=== PATIENT | female | born 1955 | race Caucasian/White ===

== ENCOUNTER 2024-01-07 11:01 | Outpatient (AMB) | payer MEDICARE, OTHER, SELFPAY ==
--- NOTE | 2024-01-07 11:25 | HO.NEPHOV_ITS ---
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 She had been on lithium for over 30 years. She has a new psychiatrist. She currently has been weaned down on her lithium. She is known to have one cyst on one of her kidneys. She has no family history of renal disease. She has not a diabetic. She has hypertension and is on medications with good control. She does not take any regular nonsteroidal anti-inflammatory medications. Her mother had bipolar disease and has been on Depakote. She also has history of hypercalcemia with he r serum calcium consistently around 11. She does not have any history of nephrolithiasis. She denies coronary artery disease, congestive heart failure, CVA, ROSHAN, PVD, carotid stenosis, froth or foam in the urine. She had taken PPI for a long time. She has had essential tremor which is well controlled. She currently feels well. She is trying to lose weight. [facility] Medical History (Updated 01/24/24 @ 21:42 by Dirk Hope MD) Primary hypothyroidism Hypercalcemia Stage 3b chronic kidney disease (CKD) Surgical History (Updated 01/07/24 @ 11:33 by Ruba Baumann MA) Status post right knee replacement H/O tubal ligation History of breast surgery Family History (Updated 01/07/24 @ 11:33 by Ruba Baumann MA) Father Heart disease Social History (Updated 01/07/24 @ 11:33 by Ruba Baumann MA) Alcohol intake: current Comment: Occasionally Patient Tobacco Use Status: Former Tobacco user Vital Signs 01/07/24 11:28 Height 5 ft 5 in BP 136/62 Blood Pressure Location Rt brachial Position Sitting Pulse 66 Pulse Source Pulse Oximeter Pulse Oximetry (%) 97 Oxygen Delivery Method Room Air Physical Exam Vital Signs: Last Vital Signs Pulse 66 01/07/24 11:28 BP 136/62 01/07/24 11:28 Pulse Ox 97 01/07/24 11:28 Oxygen Delivery Method Room Air 01/07/24 11:28 Const General: comfortable and no acute distress Orientation/consciousness: patient oriented x3 HEENT Head: Yes normocephalic Mouth: Normal oral and palatal mucosa present Eyes EOM: EOMs intact bilaterally Neck Neck: Yes supple Resp Auscultation: clear to auscultation bilaterally Cardio Jugular venous distension: no JVD Rate: regular rate GI Palpation (GI): Soft to palpation Auscultation: normal bowel sounds General: Yes no CVA tenderness Back/Spine/Pelvis Back: no CVA tenderness Skin General skin exam: no rashes or lesions noted Neuro General: patient oriented x3 and moves all extremities Extrem General: Yes no pedal edema Assessment & Plan Assessment & Plan (1) Hypercalcemia: Code(s): E83.52 - Hypercalcemia (2) Chronic kidney disease, stage 3, mod decreased GFR: Code(s): N18.30 - Chronic kidney disease, stage 3 unspecified Qualifiers: Chronic kidney disease stage 3 subtype: stage 3a (GFR 45-59) Qualified Code(s): N18.31 - Chronic kidney disease, stage 3a (3) Hypertension: Code(s): I10 - Essential (primary) hypertension Qualifiers: Hypertension type: primary hypertension Qualified Code(s): I10 - Essential (primary) hypertension (4) 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 Her lithium is being weaned off. Her serum calcium has been stable. She maintains good hydration. She has no renal calculus. She avoids nonsteroidal anti-inflammatories. She may be a candidate for amiloride in the future. If her serum creatinine goes up we may have to consider doing a renal biopsy. She may have to come off PPI as well if her serum creatinine rises. Her blood pressure is at goal. I have not made any medication changes today. Follow-up lab work ordered. All questions answered. Orders: Orders Blood Urea Nitrogen 01/07/24 N18.32 - Chronic kidney disease, stage 3b, E21.0 - Primary hyperparathyroidism, E83.52 - Hypercalcemia Creatinine 01/07/24 N18.32 - Chronic kidney disease, stage 3b, E21.0 - Primary hyperparathyroidism, E83.52 - Hypercalcemia Calcium 01/07/24 N18.32 - Chronic kidney disease, stage 3b, E21.0 - Primary hyperparathyroidism, E83.52 - Hypercalcemia Electrolytes 01/07/24 N18.32 - Chronic kidney disease, stage 3b, E21.0 - Primary hyperparathyroidism, E83.52 - Hypercalcemia Coding Level of Care Code Est Pt Level 4 (05573) Diagnoses Hypercalcemia E83.52 Stage 3a chronic kidney disease N18.31 Chronic kidney disease stage 3 subtype: stage 3a (GFR 45-59) Primary hypertension I10 Hypertension type: primary hypertension 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
[2024-01-07 11:28] VITALS: BP 136/62; PULSE 66; O2SAT 97
== END 2024-01-07 12:04 | disposition home or self-care (01) ==
PROVIDERS: PCP Physician Assistant Medical; Visit Provider Internal Medicine Nephrology
DX: I12.0 Hypertensive chronic kidney disease with stage 5 chronic kidney disease or end stage renal disease (principal); N18.31 Chronic kidney disease, stage 3a; E21.1 Secondary hyperparathyroidism, not elsewhere classified; T43.595A Adverse effect of other antipsychotics and neuroleptics, initial encounter
CPT/HCPCS: 99214

== ENCOUNTER → 2024-01-07 11:01 | Outpatient (BNVA) | payer MEDICARE, OTHER, SELFPAY | PROVIDERS: PCP Physician Assistant Medical; Visit Provider Internal Medicine Nephrology | DX: I12.9 Hypertensive chronic kidney disease with stage 1 through stage 4 chronic kidney disease, or unspecified chronic kidney disease (principal); N18.31 Chronic kidney disease, stage 3a; E83.52 Hypercalcemia; E21.1 Secondary hyperparathyroidism, not elsewhere classified; T43.595D Adverse effect of other antipsychotics and neuroleptics, subsequent encounter | CPT/HCPCS: 99212 ==

== ENCOUNTER 2024-05-27 14:01 | Outpatient (AMB) | payer MEDICARE, OTHER, SELFPAY ==
[2024-05-27 14:06] VITALS: BMI 40.4
--- NOTE | 2024-05-27 14:06 | A.OFFVIS_ITS ---
VS Expanded 05/27/24 14:06 06/02/24 14:57 Height 5 ft 5 in 5 ft 5 in Weight 242 lb 11.663 oz 243 lb BMI 40.4 40.4 Intake Visit Reasons: Chronic kidney disease, stage 3a/LVM Allergies No Known Allergies Allergy (Verified 01/07/24 11:30) Nutrition Presentation Details: Pt presents for MNT for CKD stage 3. 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 Pt reports working on reducing total calories to less than 1400 by following phone javi BS Monitoring Most Recent Diabetes Results: No Data to Display EKA-Xujonmz-Vd.Jeor Equation Height: 5 ft 5 in Weight: 243 lb Resting Metabolic Rate: 1637.44 Calculated Activity Level: Sedentary Calories Needed to Maintain Weight: 1964.93 Diagnosis Nutrition problem #1: food nutri know defi As related to (etiology) #1: diagnosis As evidenced by (sign/symptom) #1: high BMI (40.4 (06/2024), may also be overly restricting caloric intake ) PFSH Medical History (Updated 04/16/24 @ 19:28 by Dirk Hope MD) Primary hypothyroidism Hypercalcemia Stage 3b chronic kidney disease (CKD) Surgical History (Updated 01/07/24 @ 11:33 by Ruba Baumann MA) Status post right knee replacement H/O tubal ligation History of breast surgery Family History (Updated 01/07/24 @ 11:33 by Ruba Baumann MA) Father Heart disease Social History (Updated 01/07/24 @ 11:33 by Ruba Baumann MA) Alcohol intake: current Comment: Occasionally Patient Tobacco Use Status: Former Tobacco user Assessment & Plan Assessment & Plan (1) Stage 3b chronic kidney disease (CKD): Code(s): N18.32 - Chronic kidney disease, stage 3b Category: Medical Plan: Wt: 110 Kg ( 05/2024 ) Est kcal needs as per MSJ: 1900 (40% carb, 30% protein/fat) Est fluid needs as per 25-30 ml/d: 2700- 3300 (unless otherwise specified by MD) Est prot per day as per 1 g/kg bw: 110 Recommend fiber intake : 8-10 g per day and gradually increase to 25-28 g per day for women and 35-38 g for men or as tolerated Recommend sodium intake per day: less than 2000 mg Educated patient on: ( R = reviewed V = verbalizes understanding N/R = needs review N/A = not applicable * Food sources of carbohydrate, adequate serving sizes and its role in various health conditions: R * Differences between complex carbohydrates a simple carbohydrates, role of fiber in diet: R V N/R * Lean protein sources of foods: R V NR * Differences between types of fats and role in diet (mono on saturated fat fatty acids, saturated fatty acids, trans fats): R V N/R * Food sources of sodium in salt and healthy modifications for heart health in kidney health: R * Vitamins and minerals: R V N/R * Healthy plate method concept: R * Physical activity: Benefits a precaution: R V N/R * Patient Instructions: work on practicing mindful eating strategies may recommend 1900 calories, distributed throughout the day (3 meals/2-3 snacks) following the healthy plate method Coding Level of Care Code Nutr Indiv Intake (46690) Diagnoses Stage 3b chronic kidney disease (CKD) N18.32 Time Spent (min) 30
[2024-06-07 11:09] VITALS: BMI 40.4
== END 2024-05-27 15:00 | disposition home or self-care (01) ==
PROVIDERS: PCP Physician Assistant Medical; Visit Provider Dietitian, Registered
DX: N18.32 Chronic kidney disease, stage 3b (principal)

== ENCOUNTER → 2024-05-27 14:01 | Outpatient (BNVA) | payer MEDICARE, OTHER, SELFPAY | PROVIDERS: PCP Physician Assistant Medical; Visit Provider Dietitian, Registered | DX: N18.32 Chronic kidney disease, stage 3b (principal); Z71.3 Dietary counseling and surveillance | CPT/HCPCS: 97802 ==

== ENCOUNTER 2024-07-08 12:36 | Outpatient (AMB) | payer MEDICARE, OTHER, SELFPAY ==
[2024-07-08 12:41] VITALS: BMI 39.3
--- NOTE | 2024-07-08 12:41 | A.OFFVIS_ITS ---
VS Expanded 07/08/24 12:41 07/08/24 13:49 Height 5 ft 5 in 5 ft 5 in Weight 235 lb 14.314 oz 236 lb BMI 39.3 39.3 Intake Visit Reasons: Chronic kidney disease, stage 3a/CONFIRMED Allergies No Known Allergies Allergy (Verified 01/07/24 11:30) Nutrition Presentation Details: Pt presents for MNT f/u for obesity with CKD stage 3. Pt reports working on diet modifications, working on distributing the meals throughout the day, tracking caloric intake by using fitness pal Pt reports choosing a variety of foods, working on reducing on fats/high sugar foods. 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 BS Monitoring Most Recent Diabetes Results: No Data to Display YZJ-Blwgpyh-Dv.Jeor Equation Height: 5 ft 5 in Weight: 236 lb Resting Metabolic Rate: 1605.72 Calculated Activity Level: Sedentary Calories Needed to Maintain Weight: 1926.86 [facility] Medical History (Updated 04/16/24 @ 19:28 by Dirk Hope MD) Primary hypothyroidism Hypercalcemia Stage 3b chronic kidney disease (CKD) Surgical History (Updated 01/07/24 @ 11:33 by Ruba Baumann MA) Status post right knee replacement H/O tubal ligation History of breast surgery Family History (Updated 01/07/24 @ 11:33 by Ruba Baumann MA) Father Heart disease Social History (Updated 01/07/24 @ 11:33 by Ruba Baumann MA) Alcohol intake: current Comment: Occasionally Patient Tobacco Use Status: Former Tobacco user Assessment & Plan Assessment & Plan (1) Stage 3b chronic kidney disease (CKD): Code(s): N18.32 - Chronic kidney disease, stage 3b Category: Medical Plan: Wt: 110 Kg ( 05/2024 ), 107 kg (07/2024) Est kcal needs as per MSJ: 1900 (40% carb, 30% protein/fat) Est fluid needs as per 25-30 ml/d: 2700- 3200 (unless otherwise specified by ) Est prot per day as per 1 g/kg bw: 107 Recommend fiber intake : 8-10 g per day and gradually increase to 25-28 g per day for women and 35-38 g for men or as tolerated Recommend sodium intake per day: less than 2000 mg Educated patient on: ( R = reviewed V = verbalizes understanding N/R = needs review N/A = not applicable * Food sources of carbohydrate, adequate serving sizes and its role in various health conditions: R * Differences between complex carbohydrates a simple carbohydrates, role of fiber in diet: R * Lean protein sources of foods: R * Differences between types of fats and role in diet (mono on saturated fat fatty acids, saturated fatty acids, trans fats): R * Food sources of sodium in salt and healthy modifications for heart health in kidney health: R * Vitamins and minerals: R * Healthy plate method concept: R * Physical activity: Benefits a precaution: R * Patient Instructions: Choose lean protein foods, (fish, eggs, poultry as ex) keep hydrated Coding Level of Care Code Nutr Indiv Subseq ([id number]) Diagnoses Stage 3b chronic kidney disease (CKD) N18.32 Time Spent (min) 20
[2024-07-08 13:49] VITALS: BMI 39.3
== END 2024-07-08 13:09 | disposition home or self-care (01) ==
PROVIDERS: PCP Physician Assistant Medical; Visit Provider Dietitian, Registered
DX: N18.32 Chronic kidney disease, stage 3b (principal)

== ENCOUNTER → 2024-07-08 12:36 | Outpatient (BNVA) | payer MEDICARE, OTHER, SELFPAY | PROVIDERS: PCP Physician Assistant Medical; Visit Provider Dietitian, Registered | DX: E66.9 Obesity, unspecified (principal); N18.32 Chronic kidney disease, stage 3b; Z71.3 Dietary counseling and surveillance; Z68.39 Body mass index [BMI] 39.0-39.9, adult | CPT/HCPCS: 97803 ==

== ENCOUNTER 2024-07-14 13:30 | Outpatient (AMB) | payer MEDICARE, OTHER, SELFPAY ==
--- NOTE | 2024-07-14 13:39 | HO.NEPHOV_ITS ---
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 She had been on lithium for over 30 years which has been weaned off. She has a new psychiatrist. She she is doing well on Tegretol. She has lost significant amount of weight by exercise and dietary changes. She is known to have one cyst on one of her kidneys. She has no family history of renal disease. She has not a diabetic. She has hypertension and is on medications with good control. She does not take any regular nonsteroidal anti-inflammatory medications. Her mother had bipolar disease and has been on Depakote. She also has history of hypercalcemia with her serum calcium consistently around 11. She does not have any history of nephrolithiasis. She denies coronary artery disease, congestive heart failure, CVA, ROSHAN, PVD, carotid stenosis, froth or foam in the urine. She had taken PPI for a long time. She has had essential tremor which is well controlled. She currently feels well. [facility] Medical History (Updated 04/16/24 @ 19:28 by Dirk Hope MD) Primary hypothyroidism Hypercalcemia Stage 3b chronic kidney disease (CKD) Surgical History Status post right knee replacement H/O tubal ligation History of breast surgery Family History Father Heart disease Social History Alcohol intake: current Comment: Occasionally Patient Tobacco Use Status: Former Tobacco user Review of Systems Const All systems reviewed & are unremarkable except as noted in HPI and below Physical Exam Vital Signs: Last Vital Signs Pulse 67 07/14/24 13:41 BP 126/70 07/14/24 13:41 Pulse Ox 97 07/14/24 13:41 Oxygen Delivery Method Room Air 07/14/24 13:41 BMI result Body Mass Index 38.8 Const General: comfortable and no acute distress Orientation/consciousness: patient oriented x3 HEENT Head: Yes normocephalic Mouth: Normal oral and palatal mucosa present Eyes EOM: EOMs intact bilaterally Neck Neck: Yes supple Resp Auscultation: clear to auscultation bilaterally Cardio Jugular venous distension: no JVD Rate: regular rate GI Palpation (GI): Soft to palpation Auscultation: normal bowel sounds General: Yes no CVA tenderness Back/Spine/Pelvis Back: no CVA tenderness Skin General skin exam: no rashes or lesions noted Neuro General: patient oriented x3 and moves all extremities Extrem General: Yes no pedal edema Results Reviewed Nephrology Results: No Data to Display Assessment & Plan Assessment & Plan (1) Chronic kidney disease, stage 3, mod decreased GFR: Code(s): N18.30 - Chronic kidney disease, stage 3 unspecified Category: Medical Qualifiers: Chronic kidney disease stage 3 subtype: stage 3a (GFR 45-59) Qualified Code(s): N18.31 - Chronic kidney disease, stage 3a (2) Hypercalcemia: Code(s): E83.52 - Hypercalcemia Category: Medical Plan Cami had stable serum creatinine for some time . 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 Her lithium is weaned off. Her serum calcium has been stable. She maintains good hydration. She has no renal calculus. She avoids nonsteroidal anti-inflammatories. Her blood pressure has been at goal. She may have to come off PPI as well if her serum creatinine rises. I have not made any medication changes today. Follow-up lab work ordered. All questions answered. Orders: Orders Blood Urea Nitrogen 07/14/24 N18.31 - Chronic kidney disease, stage 3a Creatinine 07/14/24 N18.31 - Chronic kidney disease, stage 3a Electrolytes 07/14/24 N18.31 - Chronic kidney disease, stage 3a Calcium 07/14/24 N18.31 - Chronic kidney disease, stage 3a Coding Level of Care Code Est Pt Level 4 (78119) Diagnoses Stage 3a chronic kidney disease N18.31 Chronic kidney disease stage 3 subtype: stage 3a (GFR 45-59) Hypercalcemia E83.52
[2024-07-14 13:41] VITALS: BP 126/70; PULSE 67; O2SAT 97; BMI 38.8
== END 2024-07-14 13:55 | disposition home or self-care (01) ==
PROVIDERS: PCP Physician Assistant Medical; Visit Provider Internal Medicine Nephrology
DX: N18.31 Chronic kidney disease, stage 3a (principal); E83.52 Hypercalcemia
CPT/HCPCS: 99214

== ENCOUNTER → 2024-07-14 13:30 | Outpatient (BNVA) | payer MEDICARE, OTHER, SELFPAY | PROVIDERS: PCP Physician Assistant Medical; Visit Provider Internal Medicine Nephrology | DX: N18.31 Chronic kidney disease, stage 3a (principal); E83.52 Hypercalcemia | CPT/HCPCS: 99212 ==

== ENCOUNTER 2024-11-15 14:01 | Outpatient (AMB) | payer MEDICARE, OTHER, SELFPAY ==
[2024-11-15 14:16] VITALS: BMI 38.1
--- NOTE | 2024-11-15 14:16 | A.OFFVIS_ITS ---
VS Expanded 11/15/24 14:16 Height 5 ft 5 in Weight 229 lb 0.964 oz BMI 38.1 Intake Visit Reasons: Obesity/Left vm Allergies No Known Allergies Allergy (Verified 07/14/24 13:43) Nutrition Presentation Details: Pt presents for MNT f/u for CKD stage 3 Pt working on diet modifications reducing portion sizes, incorporating salads, vegetables, lean protein, reducing on high salt foods Continues keeping track of caloric intake, reports feeling well. Pt reports will be joining weight management program through the insurance Exercise routine: currently sedentary BS Monitoring Most Recent Diabetes Results: No Data to Display [facility] Medical History (Updated 04/16/24 @ 19:28 by Dirk Hope MD) Primary hypothyroidism Hypercalcemia Stage 3b chronic kidney disease (CKD) Surgical History Status post right knee replacement H/O tubal ligation History of breast surgery Family History Father Heart disease Social History Alcohol intake: current Comment: Occasionally Patient Tobacco Use Status: Former Tobacco user Assessment & Plan Assessment & Plan (1) Stage 3b chronic kidney disease (CKD): Code(s): N18.32 - Chronic kidney disease, stage 3b Category: Medical Plan: Wt: 110 Kg ( 05/2024 ), 107 kg (07/2024) Est kcal needs as per MSJ: 1900 (40% carb, 30% protein/fat) Est fluid needs as per 25-30 ml/d: 2700- 3200 (unless otherwise specified by ) Est prot per day as per 1 g/kg bw: 107 Recommend fiber intake : 8-10 g per day and gradually increase to 25-28 g per day for women and 35-38 g for men or as tolerated Recommend sodium intake per day: less than 2000 mg Educated patient on: ( R = reviewed V = verbalizes understanding N/R = needs review N/A = not applicable * Food sources of carbohydrate, adequate serving sizes and its role in various health conditions: R * Differences between complex carbohydrates a simple carbohydrates, role of fiber in diet: R * Lean protein sources of foods: R * Differences between types of fats and role in diet (mono on saturated fat fatty acids, saturated fatty acids, trans fats): R * Food sources of sodium in salt and healthy modifications for heart health in kidney health: R * Vitamins and minerals: R * Healthy plate method concept: R * Physical activity: Benefits a precaution: R * Patient Instructions: Engage in physical activity as able goal 30 minutes at least 3 times a week unless otherwise stated by your Doctor Coding Level of Care Code Nutr Indiv Subseq ([id number]) Diagnoses Stage 3b chronic kidney disease (CKD) N18.32 Time Spent (min) 30
--- OUTSIDE RECORDS SUMMARY | 2024-11-15 17:33 | XMS_ITS | Continuity of Care Document ---
Author Organization [facility] Address [address] [place] [address], [address] [address]- Care Team Providers Care Universal Banker Name Role Phone Not on Staff, PCP Primary Care Physician Unavail able Encounter [facility] Date(s): 09/24/24 - 10/24/24 [facility] [address] [place] [address], [address] [place] [id number] Attending Physician: Kiara Henriquez Admitting Physician: Kiara Henriquez Referring Physician: AdmtrKiara Encounter Type: Triage Allergies, Adverse Reactions, Alerts Substance Criticality Severity Reaction Reaction Severity Status Other Environmental Allergy DERMATONE - CONTACT DERMATITIS Active RUFINA inhibitors Activ e Medications acetaminophen 325 mg oral tablet 650 mg, By Mouth, Every 6 hours, Refills 0, Maintenance, 08/20/17 8:40:47 AM EDT Start Date: 08/20/17 Status: Ordered Repeat number: 1 aMILoride 5 mg oral tablet 0.5 tablet = 2.5 mg, By Mouth, Daily, # 15 tablet, 6 Refills, Maintenance, 03/24/24 1:34:00 PM EDT, Tablet, Partial fill upon patient request if the prescription is for a schedule II opioid drug. Start Date: 03/24/24 Status: Ordered Quantity: 15.0 Unit: tablet Repeat number: 7 aspirin 162.5 mg oral capsule, extended release = 325 mg, By Mouth, 2 times a day, 0 Refills, Maintenance, 08/20/17 8:40:48 AM EDT, ER Capsule Start Date: 08/20/17 Status: Ordered Repeat number: 1 atorvastatin 40 mg oral tablet = 40 mg, By Mouth, Daily at bedtime, 0 Refills, Maintenance, Tablet Start Date: 08/20/17 Status: Ordered Repeat number: 1 Cardizem CD 120 mg/24 hours oral capsule, extended release 120 mg, By Mouth, Daily, Refills 0, Maintenance, 08/20/17 8:39:52 AM EDT Start Date: 08/20/17 Status: Ordered Repeat number: 1 CPAP Machine See Instructions, # 1 each, Maintenance, CPAP 12, 07/14/18 1:48:19 PM EDT, Compound Start Date: 07/14/18 Status: Ordered Quantity: 1.0 Unit: each Repeat number: 1 Gemtesa 75 mg oral tablet 1 tablet, By Mouth, Daily, # 30 tablet, 11 Refills, Maintenance, 09/24/24 12:26:00 PM EST, [facility], 163, cm, 04/01/24 9:36:00 EDT, Height, 119.5, kg, 10/04/22 8:16:00 EST, Dry Weight Start Date: 09/24/24 Status: Ordered Quantity: 30.0 Unit: tablet Repeat number: 12 Glucosamine Chondroitin By Mouth, Daily, 0 Refills, Maintenance, 03/24/24 1:08:00 PM EDT, Partial fill upon patient request if the prescription is for a schedule II opioid drug. Start Date: 03/24/24 Status: Ordered Repeat number: 1 levothyroxine 0.175 mg oral tablet By Mouth, Daily, 0 Refills, Maintenance, 08/20/17 8:40:13 AM EDT, Tablet Start Date: 08/20/17 Status: Ordered Repeat number: 1 LORazepam 0.5 mg oral tablet 1 tablet = 0.5 mg, By Mouth, Every 8 hours, prn, 0 Refills, Maintenance, 03/24/24 1:13:00 PM EDT, Partial fill upon patient request if the prescription is for a schedule II opioid drug. Start Date: 03/24/24 Status: Ordered Repeat number: 1 Mastectomy Bra See Instructions, # 6 each, Refills 1, Tot. Refills 1, Maintenance, History of left breast cancer Asymmetry due to surgery Diagnosis: C50.912, 07/04/22 12:41:00 PM EDT, Supply Start Date: 07/04/22 Status: Ordered Quantity: 6.0 Unit: each Repeat number: 2 Mastectomy Prosthesis See Instructions, # 1 each, Refills 1, Tot. Refills 1, Maintenance, History of breast cancer. Please dispense compression sleeve and glove. 40 mmHg, 01/21/19 4:31:25 PM EDT, Compound Start Date: 01/21/19 Status: Ordered Quantity: 1.0 Unit: each Repeat number: 2 Mastectomy Prosthesis See Instructions, # 1 each, Refills 0, Tot. Refills 0, Maintenance, History of left breast cancer Asymmetry due to surgery Diagnosis: C50.912, 07/04/22 12:41:00 PM EDT, Supply Start Date: 07/04/22 Status: Ordered Quantity: 1.0 Unit: each Repeat number: 1 mirabegron 50 mg oral tablet, extended release 1 tablet = 50 mg, By Mouth, Daily, do not crush or chew, # 30 tablet, 5 Refills, Maintenance, 05/23/23 11:05:00 AM EDT, ER Tablet, [facility], Partial fill upon patient request if the prescription is for a schedule II opioid drug., 163, cm, 12/12/22 14:05:00 EST, Height, 119.5, kg,10/04/22 8:16:00 EST, Dry Weight Start Date: 05/23/23 Status: Ordered Quantity: 30.0 Unit: tablet Repeat number: 6 MiraLax Powder 1 pack/packet = 17 Gm, By Mouth, Daily, 0 Refills, Maintenance, 08/20/17 8:41:09 AM EDT, Powder Start Date: 08/20/17 Status: Ordered Repeat number: 1 Multivitamin 0 Refills, Maintenance, 03/24/24 1:08:00 PM EDT, Partial fill upon patient request if the prescription is for a schedule II opioid drug. Start Date: 03/24/24 Status: Ordered Repeat number: 1 Pepcid 20 mg oral tablet 1 tablet = 20 mg, By Mouth, 2 times a day, # 180 tablet, 0 Refills, Maintenance, 06/27/21 11:21:00 AM EDT, Tablet, Partial fill upon patient request if the prescription is for a schedule II opioid drug. Start Date: 06/27/21 Status: Ordered Quantity: 180.0 Unit: tablet Repeat number: 1 Prilosec 40 mg oral enteric coated capsule 1 capsule = 40 mg, By Mouth, Daily, 0 Refills, Maintenance, 04/26/13 4:30:39 PM EDT Start Date: 04/26/13 Status: Ordered Repeat number: 1 QUEtiapine 100 mg oral tablet 100 mg, By Mouth, Daily at bedtime, Refills 0, Maintenance, 08/20/17 8:40:42 AM EDT Start Date: 08/20/17 Status: Ordered Repeat number: 1 Trileptal 600 mg oral tablet 1 tablet = 600 mg, By Mouth, 2 times a day, # 60 tablet, 5 Refills, Maintenance, 03/24/24 1:09:00 PMEDT, Tablet, Partial fill upon patient request if the prescription is for a schedule II opioid drug. Start Date: 03/24/24 Status: Ordered Quantity: 60.0 Unit: tablet Repeat number: 1 Vitamin D3 = 2,000 International_Units, By Mouth, 0 Refills, Maintenance, 11/09/13 12:04:54 PM EST Start Date: 11/09/13 Status: Ordered Repeat number: 1 Problem List Condition Confirmation Course Effective Dates Status Health St atus Informant Breast cancer, Infiltrating ductal carcinoma, T1c N1, Mx ER negative, [place] negative, HER-2/guido negative by FISH (stage II), diagnosed in 2007. Confirmed Active Breast cancer, Infiltrating ductal carcinoma, T1c N1, Mx ER negative, [place] negative, HER-2/guido negative by FISH (stage II), diagnosed in 2007. Confirmed Active Obstructive sleep apnea Confirmed Active Severe obesity Confirmed Active Social History Social History Type Response Smoking Status Former smoker entered on: 02/20/15 Sex Sex Representation Female (finding) Patient Care team information Care Team Personnel Name: Not on Staff, PCP Position: S Physician (General Medicine) Member Role: PCP Care Team Related Persons Name: ROMULO KIRBY Insurance Providers Guarantor name: LACHELLE KIRBY Health Plan Information #: 1 Payer: MEDICARE PART B OUTPT Member Number: NA Policy Number: NA Group Number: NA Health Plan Information #: 2 [facility] Member Number: NA Policy Number: NA Group Number: NA
--- OUTSIDE RECORDS SUMMARY | 2024-11-15 17:33 | XMS_ITS | Continuity of Care Document ---
Author Organization [facility] Address [address] [place] [address]- Care Team Providers Care Credit Cashier Name Role Phone Not on Staff, PCP Primary Care Physician Unavail able Encounter [facility] Date(s): 10/07/24 - 11/06/24 [facility] [address] [place] [address]- Encounter Type: Triage Allergies, Adverse Reactions, Alerts [...] Date: 08/20/17 Status: Ordered Repeat number: 1 carBAMazepine 100 mg oral capsule, extended release 1 capsule = 100 mg, By Mouth, 2 times a day, # 60 capsule, 0 Refills, Maintenance, 11/04/24 2:22:00 PM EST, CR Capsule, Partial fill upon patient request if the prescription is for a schedule II opioiddrug. Start Date: 11/04/24 Status: Ordered Quantity: 60.0 Unit: capsule Repeat number: 1 Cardizem CD 120 mg/24 [...] breast cancer Asymmetry due to surgery Diagnosis: C50.2, 07/04/22 12:41:00 PM EDT, Supply Start Date: [...] number: 1 QUEtiapine 100 mg oral tablet 300 mg, By Mouth, Daily at bedtime, Refills 0, Maintenance, 08/20/17 8:40:42 AM EDT Start Date: 08/20/17 Status: Ordered Repeat number: 1 Vitamin D3 = 2,000 International_Units, By Mouth, 0 Refills, Maintenance, 11/09/13 12:04:54 PM EST Start Date: 11/09/13 Status: Ordered Repeat number: 1 Problem List Condition Confirmation Course Effective Dates Status Health St atus Informant Breast cancer, Infiltrating ductal carcinoma, T1c N1, Mx ER negative, [place] negative, HER-2/guido negative by FISH (stage II), diagnosed in 2007. Confirmed Active Breast cancer, Infiltrating ductal carcinoma, T1c N1, Mx ER negative, [place] negative, HER-2/guido negative by FISH (stage II), diagnosed in 2007. Confirmed Active IBS (irritable colon syndrome) Confirmed Active Obstructive sleep apnea Confirmed Active Restless leg syndrome Confirmed Active Severe obesity (BMI 35.0-39.9) with comorbidity Confirmed Active Social History Social History Type [...] NA Health Plan Information #: 2 Payer: [facility] Member Number: NA Policy Number: NA Group Number: NA
== END 2024-11-15 14:47 | disposition home or self-care (01) ==
PROVIDERS: PCP Physician Assistant Medical; Visit Provider Dietitian, Registered
DX: N18.32 Chronic kidney disease, stage 3b (principal)

== ENCOUNTER → 2024-11-15 14:01 | Outpatient (BNVA) | payer MEDICARE, OTHER, SELFPAY | PROVIDERS: PCP Physician Assistant Medical; Visit Provider Dietitian, Registered | DX: N18.32 Chronic kidney disease, stage 3b (principal) | CPT/HCPCS: 97803 ==

== ENCOUNTER 2025-01-12 10:58 | Outpatient (AMB) | payer MEDICARE, OTHER, SELFPAY ==
--- NOTE | 2025-01-12 11:06 | HO.NEPHOV ---
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 She had been on lithium for over 30 years which has been weaned off. She has a new psychiatrist. She she is on Tegretol which she thinks needs to be changes to Depakote. She is known to have one cyst on one of her kidneys. She has no family history of renal disease. She has not a diabetic. She has hypertension and is on medications with good control. She does not take any regular nonsteroidal anti-inflammatory medications. Her mother had bipolar disease and has been on Depakote. She also has history of hypercalcemia with her serum calcium consistently around 11. She does not have any history of nephrolithiasis. She denies coronary artery disease, congestive heart failure, CVA, ROSHAN, PVD, carotid stenosis, froth or foam in the urine. She had taken PPI for a long time. She has had essential tremor which is well controlled. She recently had IV contrast for CT scan. [facility] Medical History (Updated 04/16/24 @ 19:28 by Dirk Hope MD) Primary hypothyroidism Hypercalcemia Stage 3b chronic kidney disease (CKD) Surgical History Status post right knee replacement H/O tubal ligation History of breast surgery Family History Father Heart disease Social History Alcohol intake: current Comment: Occasionally Patient Tobacco Use Status: Former Tobacco user Review of Systems Const All systems reviewed & are unremarkable except as noted in HPI and below Physical Exam Vital Signs: Last Vital Signs Pulse 93 01/12/25 11:08 BP 130/70 01/12/25 11:08 Pulse Ox 97 01/12/25 11:08 Oxygen Delivery Method Room Air 01/12/25 11:08 BMI result Body Mass Index 36.6 Const General: comfortable and no acute distress Orientation/consciousness: patient oriented x3 HEENT Head: Yes normocephalic Mouth: Normal oral and palatal mucosa present Eyes EOM: EOMs intact bilaterally Neck Neck: Yes supple Resp Auscultation: clear to auscultation bilaterally Cardio Jugular venous distension: no JVD Rate: regular rate GI Palpation (GI): Soft to palpation Auscultation: normal bowel sounds General: Yes no CVA tenderness Back/Spine/Pelvis Back: no CVA tenderness Skin General skin exam: no rashes or lesions noted Neuro General: patient oriented x3 and moves all extremities Extrem General: Yes no pedal edema Results Reviewed Nephrology Results: No Data to Display Assessment & Plan Assessment & Plan (1) 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: Code(s): E21.1 - Secondary hyperparathyroidism, not elsewhere classified; T43.595A - Adverse effect of other antipsychotics and neuroleptics, initial encounter Category: Medical (2) Hypertension: Code(s): I10 - Essential (primary) hypertension Category: Medical Qualifiers: Hypertension type: primary hypertension Qualified Code(s): I10 - Essential (primary) hypertension (3) Chronic kidney disease, stage 3, mod decreased GFR: Code(s): N18.30 - Chronic kidney disease, stage 3 unspecified Category: Medical Qualifiers: Chronic kidney disease stage 3 subtype: stage 3a (GFR 45-59) Qualified Code(s): N18.31 - Chronic kidney disease, stage 3a Plan Cami had stable serum creatinine for some time . 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 Her lithium is weaned off. Her serum calcium has been stable. She maintains good hydration. She has no renal calculus. She avoids nonsteroidal anti-inflammatories. Her blood pressure has been at goal. I have not made any medication changes today. Follow-up lab work ordered. All questions answered Orders: Orders Blood Urea Nitrogen 3 Months E21.1 - Secondary hyperparathyroidism, not elsewhere classified, I10 - Essential (primary) hypertension, N18.31 - Chronic kidney disease, stage 3a, T43.595A - Adverse effect of other antipsychotics and neuroleptics, initial encounter Electrolytes 3 Months E21.1 - Secondary hyperparathyroidism, not elsewhere classified, I10 - Essential (primary) hypertension, N18.31 - Chronic kidney disease, stage 3a, T43.595A - Adverse effect of other antipsychotics and neuroleptics, initial encounter Creatinine 6 Months E21.1 - Secondary hyperparathyroidism, not elsewhere classified, I10 - Essential (primary) hypertension, N18.31 - Chronic kidney disease, stage 3a, T43.595A - Adverse effect of other antipsychotics and neuroleptics, initial encounter Electrolytes 6 Months E21.1 - Secondary hyperparathyroidism, not elsewhere classified, I10 - Essential (primary) hypertension, N18.31 - Chronic kidney disease, stage 3a, T43.595A - Adverse effect of other antipsychotics and neuroleptics, initial encounter Creatinine 3 Months E21.1 - Secondary hyperparathyroidism, not elsewhere classified, I10 - Essential (primary) hypertension, N18.31 - Chronic kidney disease, stage 3a, T43.595A - Adverse effect of other antipsychotics and neuroleptics, initial encounter Calcium 3 Months E21.1 - Secondary hyperparathyroidism, not elsewhere classified, I10 - Essential (primary) hypertension, N18.31 - Chronic kidney disease, stage 3a, T43.595A - Adverse effect of other antipsychotics and neuroleptics, initial encounter Blood Urea Nitrogen 6 Months E21.1 - Secondary hyperparathyroidism, not elsewhere classified, I10 - Essential (primary) hypertension, N18.31 - Chronic kidney disease, stage 3a, T43.595A - Adverse effect of other antipsychotics and neuroleptics, initial encounter Calcium 6 Months E21.1 - Secondary hyperparathyroidism, not elsewhere classified, I10 - Essential (primary) hypertension, N18.31 - Chronic kidney disease, stage 3a, T43.595A - Adverse effect of other antipsychotics and neuroleptics, initial encounter Coding Level of Care Code Est Pt Level 4 (65320) Diagnoses 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
[2025-01-12 11:08] VITALS: BP 130/70; PULSE 93; O2SAT 97; BMI 36.6
--- OUTSIDE RECORDS SUMMARY | 2025-01-12 12:51 | XMS_ITS | Encounter Summary ---
Author Organization [facility] Address [address] [place] [address] Care Team Providers Care Automotive Fuel Injection Servicer Name Role Phone Melia Musa PA-C Primary Care Provi nixon Dirk Hope MD Unavailable Alejandra Coley MD Unavailable Paul Kumar MD Unavailable Unavailable Encounter Details Date Type Department Care Team (Late Contact Info) Description 08/11/2024 Scanned Document [facility] Inocencio Owusu MD [address] [place] [address] [address] [place] [address] Social History Tobacco Use Types Packs/Day Years Used Date Smoking Tobacco: Former Cigarettes Smokeless Tobacco: Never Alcohol Use Standard Drinks/Week Comments Yes 0 (1 standard drink = 0.6 oz pur e alcohol) when I go out to dinner PHQ-2 Answer Date Recorded PHQ-2 Total Score 2 02/19/2024 Sex and Gender Information Value Date Recorded Sex Assigned at Female 02/18/2024 10:27 PM EDT Gender Identity Female 02/18/2024 10:27 PM EDT Sexual Orientation Heterosexual (straight) 02/17 10:27 PM EDT documented as of this encounter Plan of Treatment Upcoming Encounters Date Type Department Care Team (Late Contact Info) Description 01/17/2025 1:40 PM EDT Consult [facility] [place] [facility] [address] [place] [id number] Melia Musa PA-C [address] [place] [address] Samantha Lehman, MASONRY INSTALLER [address] [facility] [address] [place] [address] 03/30/2025 11:30 AM EDT Office Visit [facility] [address] [place] [address] Melia Musa PA-C [address] [place] [address] documented as of this encounter Visit Diagnoses Not on filedocumented in this encounter Care Teams Automotive Fuel Injection Servicer Relationship Specialty Start Date End Date Melia Musa PA-C [address] [place] [address] PCP - General Internal Medicine 02/18/24 Dirk Hope MD [address] [place] [address] Physician Nephrology 02/18/24 Alejandra Coley MD [facility] [address] [address] Referring Provider 02/18/24 Paul Kumar MD [address] [address] Referring Provider Gastroenterology 02/18/24 Inocencio Patino Physician Endocrinology 02/03/24 Yolanda Tinsley Nurse Practitioner Breast Surgery-Scan 02/02/24 documented as of this encounter
--- OUTSIDE RECORDS SUMMARY | 2025-01-12 12:51 | XMS_ITS | Clinical Summary ---
Author Organization [facility] [address] [facility] Address [address] [place] [address] Phone Care Team Providers Care Filter Tender Jelly Name Role Phone Physician, No Pcp Primary Care Provider Unavaila ble Allergies No known active allergies Medications atorvastatin (LIPITOR) 80 mg tablet 4 Active carBAMazepine XR (TEGretol XR) 400 mg 12 hr tablet Take 1 tablet (400 mg total) by mouth 2 (two) times a day. 4 Active Gemtesa 75 mg tablet tablet 4 Active famotidine (PEPCID) 20 mg tablet Take by mouth. Activ e QUEtiapine (SEROquel) 200 mg tablet Take 1 tablet (200 mg total) by mouth at bedtime. Active levothyroxine (SYNTHROID, LEVOTHROID) 200 mcg tablet Take 1 tablet (200 mcg total) by mouth 1 (one) time each day before breakfast. Active dilTIAZem CD (CARDIZEM CD) 240 mg 24 hr capsule Take 1 capsule (240 mg total) by mouth 1 (one) time each day. Active polyethylene glycol (PEG) 17 gram/dose oral powder 17 g 1 (one) time each day. Active Linzess 290 mcg capsuleIndication s:Other constipation TAKE 1 CAPSULE BY MOUTH ONCE DAILY BEFORE BREAKFAST 30 capsule 11 5 Active Active Problems Problem Noted Date Diagnosed Date Gastroesophageal reflux disease without esophagi tis 10/14/2024 Other constipation 10/14/2024 Gallstones 10/14/2024 Hx of colonic polyps 10/14/2024 Encounters Date Type Department Care Team Description 11/24/2024 8:13 AM EST - 11/24/2024 11:59 PM EST Hospital Encounter [facility] Ultrasound [address] [place] [address] Discharge Disposition: Home or Self Care 11/08/2024 Telephone Gastroenterology - [address] [phone] Paul Kumar MD 10/25/2024 Telephone Gastroenterology - [address] [phone] Paul Kumar MD 10/15/2024 9:45 AM EST Office Visit Gastroenterology - [address] [phone] Paul Kumar MD Gastroesophageal reflux disease without esophagitis (Primary Dx); Gallstones; Other constipation; Hx of colonic polyps from Last 3 Months Social History Tobacco Use Types Packs/Day Years Used Date Smoking Tobacco: Former Cigarettes Tobacco Cessation:Counseling Given: Not Answered Alcohol Use Standard Drinks/Week Comments Yes 0 (1 standard drink = 0.6 oz pur e alcohol) SOCIAL Comments Unknown Sex and Gender Information Value Date Recorded Sex Assigned at Female 10/15/2024 6:53 PM EST Legal Sex Female 3:53 PM EST Gender Identity Female 10/15/2024 6:53 PM EST Sexual Orientation Not on file Obstetrics History Last Filed Vital Signs Vital Sign Reading Time Taken Comments Blood Pressure - - Pulse - - Temperature - - Respiratory Rate - - Oxygen Saturation - - Inhaled Oxygen Concentration - - Weight 105 kg (232 lb) 10/15/2024 9:49 AM EST Height 165.1 cm (5' 5 ) 10/15/2024 9:49 AM EST Body Mass Index 38.61 10/15/2024 9:49 AM EST Plan of Treatment Health Maintenance Due Date Last Done Comments Breast Cancer Screening 1955 Hepatitis A Vaccines (1 of 2 - Risk 2-dose series) 1975 Hepatitis B Vaccines (1 of 3 - Risk 3-dose series) 2016 RSV Immunization Patients 60+ Years Old (1 - Risk 60-74 years 1-dose series) 2016 Cholesterol Screening (Lipid Panel) 10/02/2022 Colorectal Cancer Screening: Colonoscopy 10/02/2022 Depression Screening 10/02/2022 Falls Risk Assessment 10/02/2022 Hepatitis C Screening 10/02/2022 Medicare Annual Wellness Visit 10/02/2022 Osteoporosis Screening (Bone Density Screening) 10/02/2022 Social Influencers of Health Screening 10/02/2022 COVID-19 Vaccine ( season) 2024 09/30/2023, 09/24/2022, 08/30/2021, Additional history exists Hypertension/CHF/CAD Annual BMP Blood Test 03/04/2025 03/04/2024 DTaP,Tdap,and Td Vaccines (2 - Td or Tdap) 08/21/2030 08/21/2020 Zoster Vaccines Completed 07/04/2022, 03/05, 07/10/2016 Influenza Vaccine Completed 08/20/2024, , 11/29/2021, Additional history exists Pneumococcal Vaccine: 50+ Years Completed 09/07/2024, 11/29/2021 HIB Vaccines Aged Out No longer eligi ble based on patient's age to complete this topic HPV Vaccines Aged Out No longer eligi ble based on patient's age to complete this topic IPV Vaccines Aged Out No longer eligi ble based on patient's age to complete this topic MMR Vaccines Aged Out No longer eligi ble based on patient's age to complete this topic Meningococcal ACWY Vaccine Aged Out N o longer eligible based on patient's age to complete this topic Meningococcal B Vacine Aged Out No lo nger eligible based on patient's age to complete this topic RSV Immunization Patients Under 20 months Aged Out No longer eligible based on patient's age to complete this topic Varicella Vaccines Aged Out No longer eligible based on patient's age to complete this topic Procedures Procedure Name Priority Date/Time Associated Diagnosis Comments US ABDOMEN LIMITED Routine 11/24/2024 8: 52 AM EST Gallstones from Last 3 Months Results * US Abdomen Limited (11/24/2024 8:52 AM EST) Anatomical Region Laterality Modality Body Ultrasound 11/24/2024 8:54 AM EST Impressions 11/24/2024 9:00 AM EST Impression: 1. Small mobile gallstone. No evidence of acute cholecystitis or biliary obstruction. 2. 2 cm right renal mass, not visualized on the previous study, most likely a cyst. Follow-up renal ultrasound in 6 months recommended to document stability. 3. Abnormal renal parenchymal echogenicity suggesting underlying chronic medical renal disease. Telerad CARL ([id number]) -------- FINAL REPORT -------- Dictated By: Merari Bergman Dictated Date: 11/24/2024 08:54 ET Assigned Physician: Merari Bergman Reviewed and Electronically Signed By: Merari Bergman Signed Date: 11/24/2024 09:00 ET Workstation ID: [id number] Transcribed By: Self Edit Transcribed Date: 11/24/2024 08:54 ET Narrative 11/24/2024 9:00 AM EST History: Abnormal hepatic function tests. Cholelithiasis. Comparison: 05/20/18 Findings: Real-time imaging of the abdomen, limited to the right upper quadrant, was performed. The hepatic echotexture appears normal. No masses are identified. The portal vein is patent and exhibits normal, hepatopedal flow. The gallbladder is physiologically distended and contains a small mobile calculus. The gallbladder wall is normal in thickness and there is no pericholecystic fluid. The common duct is normal in caliber, measuring 4 mm at the level of the hepatic artery and portal vein. No ascites is seen in the right upper quadrant. A survey view of the right kidney is remarkable for diffusely increased parenchymal echogenicity suggesting underlying medical renal disease. A 1.9 x 2.1 x 2.0 cm hypoechoic mass with strong posterior acoustic enhancement arises from the lower pole of the kidney, most likely a cyst. The pancreas is partially obscured by bowel gas shadowing; the visualized portions of the head and neck appear normal. Procedure Note Merari Bergman MD - 11/24/2024 History: Abnormal hepatic function tests. Cholelithiasis. Comparison: 05/20/18 Findings: Real-time imaging of the abdomen, limited to the right upper quadrant, wasperformed. The hepatic echotexture appears normal. No masses are identified. Theportal vein is patent and exhibits normal, hepatopedal flow. The gallbladder is physiologically distended and contains a small mobilecalculus. The gallbladder wall is normal in thickness and there is nopericholecystic fluid. The common duct is normal in caliber, measuring 4mm at the level of the hepatic artery and portal vein. No ascites is seen in the right upper quadrant. A survey view of the rightkidney is remarkable for diffusely increased parenchymal echogenicitysuggesting underlying medical renal disease. A 1.9 x 2.1 x 2.0 cmhypoechoic mass with strong posterior acoustic enhancement arises from thelower pole of the kidney, most likely a cyst. The pancreas is partially obscured by bowel gas shadowing; the visualizedportions of the head and neck appear normal. IMPRESSION: Impression: 1. Small mobile gallstone. No evidence of acute cholecystitis or biliaryobstruction. 2. 2 cm right renal mass, not visualized on the previous study, mostlikely a cyst. Follow-up renal ultrasound in 6 months recommended todocument stability. 3. Abnormal renal parenchymal echogenicity suggesting underlying chronicmedical renal disease. Telerad CARL ([id number]) -------- FINAL REPORT -------- Dictated By: Merari Bergman Dictated Date: 11/24/2024 08:54 ET Assigned Physician: Merari Bergman Reviewed and Electronically Signed By: Merari Bergman Signed Date: 11/24/2024 09:00 ET Workstation ID: [id number] Transcribed By: Self Edit Transcribed Date: 11/24/2024 08:54 ET Paul Kumar MD [facility] Final Result from Last 3 Months Insurance MEDICARE [facility] [address] [place] [address] Care Teams Filter Tender Jelly Relationship Specialty Start Date End Date Physician, No Pcp PCP - General 10/14/24
--- OUTSIDE RECORDS SUMMARY | 2025-01-12 12:51 | XMS_ITS | Clinical Summary ---
Author Organization [facility] Address [address] [facility] [address] [place] [address] Phone Care Team Providers Care Consultant Teacher Name Role Phone Yakov aCceres MD Primary Care Provider [phone] Allergies Active Allergy Reactions Criticality Noted Date Comments Other 03/28/2022 Other reaction(s): DERMATONE - CONTACT DERMATITIS Medications aspirin (ST RUIZ) 81 MG EC tablet Take 1 tablet by mouth 1 (one) time each day Active atorvastatin (LIPITOR) 40 MG tablet Take 1 tablet by mouth 1 (one) time each day Active Cholecalciferol 25 MCG (1000 UT) tablet dispersible Take 1 tablet by mouth 1 (one) time each day Active lithium (LITHOBID) 300 MG CR tablet Take 3 tablets by mouth at bed time Active glucosamine-nathanael droitin 500-400 MG tablet Take 1 tablet by mouth 1 (one) time each day Active dilTIAZem CD (CARDIZEM CD) 180 MG 24 hr capsule Take 240 mg by mouth 1 (one) time each day 07/11/2021 Active QUEtiapine (SEROquel) 25 MG tablet Take 50 mg by mouth at bed time 08/24/2021 Active levothyroxine (SYNTHROID, LEVOTHROID) 175 MCG tablet Take 1 tablet by mouth 1 (one) time each day 2 tab on Sundays and 1 tab the rest of the week 08/29/2021 Active famotidine (PEPCID) 20 MG tablet Take 20 mg by mouth in the morning and 20 mg in the evening. Active Myrbetriq 25 MG tablet sustained-releas e 24 hour Take 50 mg by mouth 1 (one) time each day 03/27/2023 Active Active Problems Problem Noted Date Diagnosed Date Severe obesity 04/14/2023 Primary hypothyroidism 08/29/2022 Malignant tumor of breast 03/28/2022 Obstructive sleep apnea syndrome 03/28/2022 Stage 3a chronic kidney disease 01/22/2021 Hypercalcemia 01/22/2021 Hypertension 01/22/2021 Primary hyperparathyroidism 01/22/2021 Social History Tobacco Use Types Packs/Day Years Used Date Smoking Tobacco: Former Smokeless Tobacco: Never Tobacco Cessation:Counseling Given: Not Answered Alcohol Use Standard Drinks/Week Comments Yes 0 (1 standard drink = 0.6 oz pur e alcohol) Comments Unknown Sex and Gender Information Value Date Recorded Sex Assigned at Not on file Legal Sex Female 4:58 PM EST Gender Identity Not on file Sexual Orientation Not on file Last Filed Vital Signs Vital Sign Reading Time Taken Comments Blood Pressure 140/70 07/22/2023 4:42 PM EDT Pulse 66 04/14/2023 4:09 PM EDT Temperature - - Respiratory Rate - - Oxygen Saturation 98% 08/31/2021 3:22 PM EDT Inhaled Oxygen Concentration - - Weight 124 kg (273 lb 6.4 oz) 07/22/2023 4:42 PM EDT Height - - Body Mass Index - - Plan of Treatment Health Maintenance Due Date Last Done Comments Breast Cancer Screening 1955 Pneumococcal Vaccine: 65+ Ye ars (1 of 2 - PCV) 1962 Colorectal Cancer Screening: Annual FOBT 2005 Colorectal Cancer Screening: Colonoscopy 2005 Colorectal Cancer Screening: Sigmoidoscopy 2005 Influenza Vaccine (#1) 2024 Hepatitis B Vaccine Aged Out No longe r eligible based on patient's age to complete this topic [place] [address] [address] [place] [address] MEDICARE [facility] MEDICARE Care Teams Consultant Teacher Relationship Specialty Start Date End Date Yakov Caceres MD [facility] [address] [place] [address] [address] [place] [address] PCP - General Internal Medicine 01/22/21
--- OUTSIDE RECORDS SUMMARY | 2025-01-12 12:51 | XMS_ITS | Encounter Summary ---
Author Organization [facility] Address [address] [place] [address] Care Team Providers Care Glove Stitcher Name Role Phone Melia Musa PA-C Primary Care Provi nixon Dirk Hope MD Unavailable Alejandra Coley MD Unavailable Paul Kumar MD Unavailable Unavailable Encounter Details Date Type Department Care Team (Late st Contact Info) Description 11/25/2024 Scanned Document [facility] [address] [place] [address] Endocrinology, Scan Social History Tobacco Use Types Packs/Day Years Used Date Smoking Tobacco: Former Cigarettes Smokeless Tobacco: Never Alcohol Use Standard Drinks/Week Comments Yes 0 (1 standard drink = 0.6 oz pur e alcohol) when I go out to dinner [facility] Utilities Answer Date Recorded In the past 12 months has [employer] electric, gas, oil, or water company threatened to shut off services in your home? No 09/05/2024 Social Connection and Isolat ion Panel [NHANES] Answer Date Recorded In a typical week, how many times do you talk on the phone with family, friends, or neighbors? More than three times a week 09/05/2024 Frequency of Social Gatherin gs with Friends and Family Not on file 09/05/2024 Attends Episcopal Services Not on file 09/05 Active Member of Clubs or Organizations Not on f ile 09/05/2024 Attends Club or Organization Meetings Not on calixto e 09/05/2024 Marital Status Not on file 09/05/2024 AUDIT-C Answer Date Recorded Q1: How often do you have a drink containing alc ohol? Never 09/05/2024 Average Number of Drinks Not on file 024 Frequency of Binge Drinking Not on file 01/2024 PHQ-2 Answer Date Recorded PHQ-2 Total Score 0 09/05/2024 Hunger Vital Sign Answer Date Recorded Within the past 12 months, y ou worried that your food would run out before you got the money to buy more. Never true 09/05/20 24 Within the past 12 months, t he food you bought just didn't last and you didn't have money to get more. Never true 09/05/2024 PRAPARE - Transportation Answer Date Re corded In the past 12 months, has l ack of transportation kept you from medical appointments or from getting medications? No 01/2024 In the past 12 months, has l ack of transportation kept you from meetings, work, or from getting things needed for daily living? No 09/05/2024 Housing Stability Vital Sign Answer Konstantin e Recorded In the last 12 months, was t here a time when you were not able to pay the mortgage or rent on time? No 09/05/2024 Number of Times Moved in the Last Year Not on fi le 09/05/2024 At any time in the past 12 m [facility], were you homeless or living in a custodial (including now)? No 09/05/2024 Education Answer Date Recorded What is the highest level of school you have completed or the highest degree you have received? Associate degree: academic program 09/05/2024 Sex and Gender Information Value Date Recorded Sex Assigned at Female 02/18/2024 10:27 PM EDT Gender Identity Female 02/18/2024 10:27 PM EDT Sexual Orientation Heterosexual (straight) 02/17 10:27 PM EDT documented as of this encounter Plan of Treatment Upcoming Encounters Date Type Department Care Team (Late st Contact Info) Description 01/17/2025 1:40 PM EDT Consult [facility] [place] [address] [place] [phone] Melia Musa PA-C [address] [place] [address] Samantha Lehman, AIRPLANE MECHANIC [address] [phone] 03/30/2025 11:30 AM EDT Office Visit [facility] [address] [place] [address] Melia Musa PA-C [address] [place] [address] documented as of this encounter Visit Diagnoses Not on filedocumented in this encounter Care Teams Glove Stitcher Relationship Specialty Start Date End Date Melia Musa PA-C [address] [facility] [place] [address] PCP - General Internal Medicine 02/18/24 Dirk Hope MD [address] [facility] [place] [address] Physician Nephrology 02/18/24 Alejandra Coley MD [address] [address] Referring Provider 02/18/24 Paul Kumar MD [facility] [address] [address] Referring Provider Gastroenterology 02/18/24 Inocencio Patino Physician Endocrinology 02/03/24 Yolanda Tinsley Nurse Practitioner Breast Surgery-Scan 02/02/24 documented as of this encounter
--- OUTSIDE RECORDS SUMMARY | 2025-01-12 12:51 | XMS_ITS | Encounter Summary ---
Author Organization [facility] Address [address] [place] [address] Care Team Providers Care Underlay Stitcher Name Role Phone Melia Musa PA-C Primary Care Provi nixon Dirk Hope MD Unavailable Alejandra Coley MD Unavailable Paul Kumar MD Unavailable Unavailable Encounter Details Date Type Department Care Team (Latest Contact Info) Description 12/14/2024 Travel Social History Tobacco Use Types Packs/Day Years Used Date Smoking Tobacco: Former Cigarettes Smokeless Tobacco: Never Alcohol Use Standard Drinks/Week Comments Yes 0 (1 standard drink = 0.6 oz pur e alcohol) when I go out to dinner [facility] Utilities Answer Date Recorded In the past 12 months has [email or web address] electric, gas, oil, or water company threatened [...] and Family Not on file 09/05/2024 Attends Nondenominational Services Not on file 09/05 Active Member [...] any time in the past 12 m [facility], were you homeless or living in a alf (including now)? No 09/05/2024 Education Answer Date [...] Info) Description 01/17/2025 1:40 PM EDT Consult [facility] [place] [address] [facility] [address] [place] [phone] Melia Musa PA-C [address] [place] [address] Samantha Lehman, KRISTIN 7 [facility] [address] [place] [address] 03/30/2025 11:30 AM EDT Office Visit [facility] [place] [address] [place] [address] Melia Musa PA-C [address] [place] [address] documented as of this encounter Visit Diagnoses Not on filedocumented in this encounter Care Teams Underlay Stitcher Relationship Specialty Start Date End Date Melia Musa PA-C [address] [place] [place] [address] PCP - General Internal Medicine 02/18/24 Dirk Hope MD [address] [place] [address] Physician Nephrology 02/18/24 Alejandra Coley MD [facility] [address] [address] Referring Provider 02/18/24 Paul Kumar MD [facility] [address] [address] Referring Provider Gastroenterology 02/18/24 Inocencio Patino Physician Endocrinology 02/03/24 Yolanda Tinsley Nurse Practitioner Breast Surgery-Scan 02/02/24 documented as of this encounter
--- OUTSIDE RECORDS SUMMARY | 2025-01-12 12:51 | XMS_ITS | Encounter Summary ---
Author Organization [facility] Address [address] [place] [address] Care Team Providers Care Sign Letterer Name Role Phone Melia Musa PA-C Primary Care Provi nixon Dirk Hope MD Unavailable Alejandra Coley MD Unavailable Paul Kumar MD Unavailable Unavailable Reason for Visit * Reason Comments Other Encounter Details Date Type Department Care Team (Late st Contact Info) Description 12/07/2024 Telephone [facility] [address] [place] [address] Samantha Lehman, COOKER LOADER [address] [place] [phone] Other Social History Tobacco Use Types Packs/Day Years Used Date Smoking Tobacco: Former Cigarettes Smokeless Tobacco: Never Alcohol Use Standard Drinks/Week Comments Yes 0 (1 standard drink = 0.6 oz pur e alcohol) when I go out to dinner [facility] Utilities Answer Date Recorded In the past 12 months has [employer] e electric, gas, oil, or water company threatened [...] and Family Not on file 09/05/2024 Attends Hinduism Services Not on file 09/05 Active Member [...] any time in the past 12 m [facility], were you homeless or living in a long-term (including now)? No 09/05/2024 Education Answer Date [...] Info) Description 01/17/2025 1:[address] [facility] [place] [address] [place] [phone] Melia Musa PA-C [address] [place] [address] Samantha Lehman, COOKER LOADER [address] [place] [address] 03/30/2025 11:30 AM EDT Office Visit [facility] [address] [place] [address] Melia Musa PA-C [address] [place] [address] documented as of this encounter Visit Diagnoses Not on filedocumented in this encounter Care Teams Sign Letterer Relationship Specialty Start Date End Date Melia Musa PA-C [address] [place] [address] PCP - General Internal Medicine 02/18/24 Dirk Hope MD [address] [place] [address] Physician Nephrology 02/18/24 Alejandra Coley MD [address] [address] Referring Provider 02/18/24 Paul Kumar MD [address] [address] Referring Provider Gastroenterology 02/18/24 Inocencio Patino Physician Endocrinology 02/03/24 Yolanda Tinsley Nurse Practitioner Breast Surgery-Scan 02/02/24 documented as of this encounter
--- OUTSIDE RECORDS SUMMARY | 2025-01-12 12:51 | XMS_ITS | Encounter Summary ---
Author Organization [facility] Address [address] [place] [address] Care Team Providers Care Director Pharmacovigilance Name Role Phone Melia Musa PA-C Primary Care Provi nixon Dirk Hope MD Unavailable Alejandra Coley MD Unavailable Paul Kumar MD Unavailable Unavailable Encounter Details Date Type Department Care Team (Late st Contact Info) Description 02/20/[address] [phone] Melia Musa PA-C [address] [place] [address] Social History Tobacco Use Types Packs/Day Years Used Date Smoking Tobacco: Former Cigarettes Smokeless Tobacco: Former Alcohol Use Standard Drinks/Week Comments Yes 0 (1 standard drink = 0.6 oz pur e alcohol) PHQ-2 Answer Date Recorded PHQ-2 Total Score 2 02/19/2024 Sex and Gender Information Value Date Recorded Sex Assigned at Female 02/18/2024 10:27 PM EDT Gender Identity Female 02/18/2024 10:27 PM EDT Sexual Orientation Heterosexual (straight) 02/17 10:27 PM EDT documented as of this encounter Miscellaneous Notes * Telephone Encounter - Muriel Jole - 02/20/2024 4:31 PM EDT Pt stated Melia told her to follow up with her after speaking to her pyschiatrist. She stated she can start the medication but at 2.5mg documented in this encounter Plan of Treatment Upcoming Encounters Date Type Department Care Team (Late st Contact Info) Description 01/17/2025 1:40 PM EDT Consult [facility] [place] [address] [place] [phone] Melia Musa PA-C [address] [place] [address] Samantha Lehman APRN [facility] [address] [place] [phone] 03/30/2025 11:30 AM EDT Office Visit [facility] [address] [place] [address] Melia Musa PA-C [address] [place] [address] documented as of this encounter Visit Diagnoses Not on filedocumented in this encounter Care Teams Director Pharmacovigilance Relationship Specialty Start Date End Date Melia Musa PA-C [address] [place] [address] PCP - General Internal Medicine 02/18/24 Dirk Hope MD [address] [place] [address] Physician Nephrology 02/18/24 Alejandra Coley MD [address] [address] Referring Provider 02/18/24 Paul Kumar MD [address] [address] Referring Provider Gastroenterology 02/18/24 Inocencio Patino Physician Endocrinology 02/03/24 Yolanda Tinsley Nurse Practitioner Breast Surgery-Scan 02/02/24 documented as of this encounter
--- OUTSIDE RECORDS SUMMARY | 2025-01-12 12:51 | XMS_ITS | Encounter Summary ---
Author Organization [facility] Address [address] [place] [address] Care Team Providers Care Outreach Specialist Name Role Phone Pcp, No Primary Care Provider Unavailabl e Melia Musa PA-C Primary Care Provi nixon Dirk Hope MD Unavailable Alejandra Coley MD Unavailable Paul Kumar MD Unavailable Unavailable Encounter Details Date Type Department Care Team (Late st Contact Info) Description 02/17/2024 Scanned Document [facility] ENDOCRINOLOGY SCAN Endocrinology, Scan Social History Tobacco Use Types Packs/Day Years Used Date Smoking Tobacco: Never Assessed PHQ-2 Answer Date Recorded PHQ-2 Total Score [...] Info) Description 01/17/2025 1:40 PM EDT Consult [facility] Medical Weight Loss [place] [address] [place] [address] Melia Musa PA-C [address] [place] [address] Samantha Lehman, KRISTIN [address] [place] [address] 03/30/2025 11:30 AM EDT Office Visit [facility] Kristine [address] [place] [address] Mleia Musa PA-C [address] [place] [place] [address] documented as of this encounter Visit Diagnoses Not on filedocumented in this encounter Care Teams Outreach Specialist Relationship Specialty Start Date End Date Pcp, No PCP - General General Medicine 11/19/23 02/17/24 Melia Musa PA-C [address] [place] [address] PCP - General Internal Medicine 02/18/24 Dirk Hope MD [address] [place] [address] Physician Nephrology 02/18/24 Alejandra Coley MD [facility] [address] [address] Referring Provider 02/18/24 Paul Kumar MD [facility] [address] [address] Referring Provider Gastroenterology 02/18/24 Inocencio Patino Physician Endocrinology 02/03/24 Yolanda Tinsley Nurse Practitioner Breast Surgery-Scan 02/02/24 documented as of this encounter
--- OUTSIDE RECORDS SUMMARY | 2025-01-12 12:51 | XMS_ITS | Encounter Summary ---
Author Organization [facility] Address [address] [place] [address] Care Team Providers Care Oil Refinery Process Technician Name Role Phone Melia Musa PA-C Primary Care Provi nixon Dirk Hope MD Unavailable Alejandra Coley MD Unavailable Paul Kumar MD Unavailable Unavailable Reason for Visit * Reason Comments Other Prior Authorization Encounter Details Date Type Department Care Team (Late st Contact Info) Description 11/25/[address] [facility] [address] [place] [address] Samantha Lehman, MANAGER ACTIVITIES 7 [facility] [address] [place] [phone] Other; Prior Authorization Social History Tobacco Use Types Packs/Day Years Used Date Smoking Tobacco: Former Cigarettes Smokeless Tobacco: Never Alcohol Use Standard Drinks/Week Comments Yes 0 (1 standard drink = 0.6 oz pur e alcohol) when I go out to dinner [facility] Utilities Answer Date Recorded In the past 12 months has [employer] electric, gas, oil, or water company threatened [...] and Family Not on file 09/05/2024 Attends Shinto Services Not on file 09/05 Active Member [...] any time in the past 12 m [facility], were you homeless or living in a longterm (including now)? No 09/05/2024 Education Answer Date [...] Info) Description 01/17/2025 1:40 PM EDT Consult [facility] Medical Weight Loss [place] [address] [place] [phone] Melia Musa PA-C [address] [place] [address] Samantha Lehman, MANAGER ACTIVITIES [address] [place] [phone] 03/30/2025 11:30 AM EDT Office Visit [facility] [address] [place] [address] Melia Musa PA-C [address] [place] [address] documented as of this encounter Visit Diagnoses Not on filedocumented in this encounter Care Teams Oil Refinery Process Technician Relationship Specialty Start Date End Date Melia Musa PA-C [address] [place] [address] PCP - General Internal Medicine 02/18/24 Dirk Hope MD [address] [place] [address] Physician Nephrology 02/18/24 Alejandra Coley MD [address] [address] Referring Provider 02/18/24 Paul Kumar MD [address] [address] Referring Provider Gastroenterology 02/18/24 Inocencio Patino Physician Endocrinology 02/03/24 Yolanda Tinsley Nurse Practitioner Breast Surgery-Scan 02/02/24 documented as of this encounter
--- OUTSIDE RECORDS SUMMARY | 2025-01-12 12:51 | XMS_ITS | Encounter Summary ---
Author Organization [facility] Address [address] [place] [address] Care Team Providers Care Orthopedic Designer Name Role Phone Melia Musa PA-C Primary Care Provi nixon Dirk Hope MD Unavailable Alejandra Coley MD Unavailable Paul Kumar MD Unavailable Unavailable Encounter Details Date Type Department Care Team (Late st Contact Info) Description 02/20/2024 Scanned Document [facility] [address] [facility] [address] [place] [address] Primary Care, Scan Social History Tobacco Use Types Packs/Day [...] Info) Description 01/17/2025 1:40 PM EDT Consult [facility] Medical Weight Loss [place] [address] [place] [phone] Melia Musa PA-C [address] [place] [address] Samantha Lehman, CELERY PACKER [address] [address] [place] [phone] 03/30/2025 11:30 AM EDT Office Visit [facility] [address] [place] [address] Melia Musa PA-C [address] [place] [address] documented as of this encounter Visit Diagnoses Not on filedocumented in this encounter Care Teams Orthopedic Designer Relationship Specialty Start Date End Date Melia Musa PA-C [address] [place] [address] PCP - General Internal Medicine 02/18/24 Dirk Hope MD [address] [place] [address] Physician Nephrology 02/18/24 Alejandra Coley MD [address] [address] Referring Provider 02/18/24 Paul Kumar MD [address] [address] Referring Provider Gastroenterology 02/18/24 Inocencio Patino Physician Endocrinology 02/03/24 Yolanda Tinsley Nurse Practitioner Breast Surgery-Scan 02/02/24 documented as of this encounter
--- OUTSIDE RECORDS SUMMARY | 2025-01-12 12:51 | XMS_ITS ---
[facility] Name [facility] History of Medication Use Medication Directions Dispensed Refills Start Date End Date Stat atorvastatin (LIPITOR) 40 MG tablet Take 1 tablet (40 mg total) by mouth every evening. 12/21/2023 active LORazepam (ATIVAN) 0.5 MG tablet Take 1 tablet (0.5 mg total) by mouth 3 times daily (every 8 hours) as needed. active lithium carbonate (LITHOBID) 300 MG 12 hr CR tablet Take 3 tablets (900 mg total) by mouth every 24 hours. 02/19/2024 aborted multivitamin Tab tablet Take 1 tablet by mouth daily. active atorvastatin (LIPITOR) 80 MG tablet Take 1 tablet (80 mg total) by mouth daily. 07/15/2024 active OXcarbazepine (TRILEPTAL) 150 MG tablet Take 2 tablets (300 mg total) by mouth 2 times a day. active Tiadylt ER 240 MG 24 hr capsule Take 1 capsule (240 mg total) by mouth daily. 12/18/2023 active aMILoride (MIDAMOR) 5 MG tablet TAKE ONE-HALF TABLET (2.5MG) BY MOUTH ONCE DAILY. 10/11/2024 active famotidine (PEPCID) 20 MG tablet Take 1 tablet (20 mg total) by mouth 2 times a day. active Problems Problem Status Onset Date Problem Type Date of Resoluti on Source IFG (impaired fasting glucose) active 2024-02-18 [facility] History of colon polyps active 2024-02-18 ProblemAct [facility] Bipolar 1 disorder active 2024-02-18 ProblemAct [facility] Primary hyperparathyroidism active 2021-01-22 ProblemAct [facility] Foot pain, bilateral active 2024-04-03 ProblemAct [facility] Gastroesophageal reflux disease without esophagitis active 2024-02-18 ProblemAct [facility] Fatty liver active 2024-02-18 ProblemAct [facility] Hypertension active 2021-01-22 ProblemAct [facility] Primary osteoarthritis of both knees active 2024-02-18 ProblemAct [facility] Stage 3a chronic kidney disease active 2021-01-22 ProblemAct [facility] OAB (overactive bladder) active 2024-02-18 ProblemAct [facility] Hypercalcemia active 2021-01-22 ProblemAct [facility] T Gallstones active 2024-02-18 ProblemAct [facility] History of tobacco use active 2024-02-18 ProblemAct [facility] Other hyperlipidemia active 2024-02-18 ProblemAct [facility] Severe obesity active 2023-04-[address] Acquired hypothyroidism active 2024-02-18 ProblemAct [facility] Obstructive sleep apnea syndrome active 2022-03-28 ProblemAct [facility] History of breast cancer active 2024-09-07 ProblemAct [facility] Immunizations Vaccine Date Source Lot Number Status Covid-19 mRNA Bivalent Vacci ne - Moderna 10 mcg/0.2 mL 6mo-5yr 09/30/2023 [facility] completed Pneumococcal Polysaccharide 23-Valent 09/07/2024 [facility] [id number] completed Zoster Vaccine Live/Attenuated (Zostavax) 07/10/2016 [facility] completed Covid-19 mRNA Bivalent Vacci ne - Moderna 50 mcg/0.5mL 12+ 09/24/2022 [facility] completed Zoster Vaccine Recombinant (Shingrix) 04/02/2022 [facility] completed Covid-19 mRNA Bivalent Vacci ne - Moderna 50 mcg/0.5mL 12+ 11/29/2020 [facility] [id number] completed Zoster Vaccine Recombinant (Shingrix) 07/04/2022 [facility] completed Covid-19 mRNA Bivalent Vacci ne - Moderna 50 mcg/0.5mL 12+ 01/05/2021 [facility] completed Covid-19 mRNA Bivalent Vacci ne - Moderna 50 mcg/0.5mL 12+ 09/30/2023 [facility] completed Tdap 08/21/2020 [facility] completed Covid-19 mRNA Bivalent Vacci ne - Moderna 50 mcg/0.5mL 12+ 08/30/2021 [facility] completed Influenza, Quadrivalent (FLU ARIX, AFLURIA, FLULAVAL, FLUZONE) Preservative Free IM 08/27/2023 [facility] completed Pneumococcal Conjugate 13-Valent 11/29/2021 [facility] completed Encounters Encounter Type Encounter Reason Primary Diagnosis Location Date Ambulatory Contacts+ 12/14/2024 Ambulatory Encounter for immunization Encounter for immunization [facility] 09/07/2024 Ambulatory Gastro-esophageal reflux disease without esophagitis Gastro-esophageal reflux disease without esophagitis [facility] 05/05/2024 Ambulatory Pain in right foot Pain in right foot [facility] 04/12/2024 Ambulatory Impaired fasting glucose Impaired fasting glucose [facility] 03/04/2024 Ambulatory Other forms of dyspnea Other forms of dyspnea [facility] 02/19/2024 Care Team Organization Name Specialty Phone Email Start Date End Da te [facility] NO PCP Primary Care 04/27/2024 04/27/2024 [facility] DARREL Primary Care 02/21/2024 [facility] DENNIS ROJO Primary Care 02/19/2024
--- OUTSIDE RECORDS SUMMARY | 2025-01-12 12:51 | XMS_ITS | Encounter Summary ---
Author Organization [facility] Address [address] [place] [address] Care Team Providers Care Automotive Painter Helper Name Role Phone Melia Musa PA-C Primary Care Provi nixon Dirk Hope MD Unavailable Alejandra Coley MD Unavailable Paul Kumar MD Unavailable Unavailable Reason for Visit * Reason Comments Referral Encounter Details Date Type Department Care Team (Late st Contact Info) Description 02/23/2024 Telephone [facility] [address] [place] [address] Melia Musa PA-C [address] [place] [address] Referral Social History Tobacco Use Types Packs/Day Years [...] encounter Miscellaneous Notes * Telephone Encounter - Lety Cazares RN - 02/23/2024 2:17 PM EDT Call out to patient. Patient given referral information. Patient made aware that she had a chest x-ray ordered. Patient states I will look in my chart and figure it out . documented in this encounter Plan of Treatment Upcoming Encounters Date Type Department Care Team (Late st Contact Info) Description 01/17/2025 1:40 PM EDT Consult [facility] Medical Weight Loss [place] [address] [place] [phone] Melia Musa PA-C [address] [facility] [place] [address] Samantha Lehman APRN [address] [place] [phone] 03/30/2025 11:30 AM EDT Office Visit [facility] [address] [place] [address] Melia Musa PA-C [address] [place] [address] documented as of this encounter Visit Diagnoses Not on filedocumented in this encounter Care Teams Automotive Painter Helper Relationship Specialty Start Date End Date Melia Musa PA-C [address] [place] [address] PCP - General Internal Medicine 02/18/24 Dirk Hope MD [address] [facility] [place] [address] Physician Nephrology 02/18/24 Alejandra Coley MD [facility] [address] [address] Referring Provider 02/18/24 [place] [address] [place], [place] [phone] Referring Provider Gastroenterology 02/18/24 Inocencio Patino Physician Endocrinology 02/03/24 Yolanda Tinsley Nurse Practitioner Breast Surgery-Scan 02/02/24 documented as of this encounter
--- OUTSIDE RECORDS SUMMARY | 2025-01-12 12:52 | XMS_ITS | Encounter Summary ---
Author Organization [facility] Address [address] [place] [address] Care Team Providers Care Cutter Grinder Operator Name Role Phone Melia Musa PA-C Primary Care Provi nixon Dirk Hope MD Unavailable Alejandra Coley MD Unavailable Paul Kumar MD Unavailable Unavailable Encounter Details Date Type Department Care Team (Late st Contact Info) Description 04/21/[address] [phone] Melia Musa PA-C [address] [place] [address] Social History Tobacco Use Types Packs/Day Years [...] Miscellaneous Notes * Telephone Encounter - Muriel Lopez MA - 04/21/2024 12:18 PM EDT [facility] stated this hasn't been filled since last year and they cannot fill without a new script. They need a new order for amoxicillin. She stated pt usually takes it before her dental procedure. 500 MG 4 capsules /1 Gram prior to appt. Please advise documented in this encounter Plan of Treatment Upcoming Encounters Date Type Department Care Team (Late st Contact Info) Description 01/17/2025 1:40 PM EDT Consult [facility] Medical Weight Loss [place] [address] [place] [phone] Melia Musa PA-C [address] [place] [address] Samantha Lehman, KRISTIN 7 [facility] [address] [place] [address] 03/30/2025 11:30 AM EDT Office Visit [facility] [address] [place] [address] Melia Musa PA-C [address] [place] [address] documented as of this encounter Visit Diagnoses Not on filedocumented in this encounter Care Teams Cutter Grinder Operator Relationship Specialty Start Date End Date Melia Musa PA-C [address] [place] [address] PCP - General Internal Medicine 02/18/24 Dirk Hope MD [address] [place] [address] Physician Nephrology 02/18/24 Alejandra Coley MD [address] [address] Referring Provider 02/18/24 Paul Kumar MD [address] [address] Referring Provider Gastroenterology 02/18/24 Inocencio Patino Physician Endocrinology 02/03/24 Yolanda Tinsley Nurse Practitioner Breast Surgery-Scan 02/02/24 documented as of this encounter
--- OUTSIDE RECORDS SUMMARY | 2025-01-12 12:52 | XMS_ITS | Encounter Summary ---
Author Organization [facility] Address [address] [place] [address] Care Team Providers Care Radio Engineering Teacher Name Role Phone Melia Musa PA-C Primary Care Provi nixon Dirk Hope MD Unavailable Alejandra Coley MD Unavailable Paul Kumar MD Unavailable Unavailable Reason for Visit * Reason Comments Medication Refill Encounter Details Date Type Department Care Team (Late st Contact Info) Description 12/20/[address] [phone] Melia Musa PA-C [address] [place] [address] Acquired hypothyroidism Social History Tobacco Use Types Packs/Day Years Used Date Smoking Tobacco: Former Cigarettes Smokeless Tobacco: Never Alcohol Use Standard Drinks/Week Comments Yes 0 (1 standard drink = 0.6 oz pur e alcohol) when I go out to dinner [facility] Utilities Answer Date Recorded In the past 12 months has [employer] electric, gas, oil, or water company threatened [...] and Family Not on file 09/05/2024 Attends Bahai Services Not on file 09/05 Active Member [...] any time in the past 12 m [facility], were you homeless or living in a [...] [facility] [place] [address] [place] [phone] Melia Musa PA-C [address] [place] [address] Samantha Lehman, PASSENGER SOLICITOR [address] [place] [address] 03/30/2025 11:30 AM EDT Office Visit [facility] [address] [place] [address] Melia Musa PA-C [address] [place] [address] documented as of this encounter Visit Diagnoses Diagnosis Acquired hypothyroidism Unspecified hypothyroidism documented in this encounter Care Teams Radio Engineering Teacher Relationship Specialty Start Date End Date Melia Musa PA-C [address] [facility] [place] [address] PCP - General Internal Medicine 02/18/24 Dirk Hope MD [address] [facility] [place] [address] Physician Nephrology 02/18/24 Alejandra Coley MD [address] [address] Referring Provider 02/18/24 Paul Kumar MD [address] [address] Referring Provider Gastroenterology 02/18/24 Inocencio Patino Physician Endocrinology 02/03/24 Yolanda Tinsley Nurse Practitioner Breast Surgery-Scan 02/02/24 documented as of this encounter
--- OUTSIDE RECORDS SUMMARY | 2025-01-12 12:52 | XMS_ITS | Continuity of Care Document ---
Author Organization [facility] [address] [facility] [address] [address] [facility] [address] [place] [address] Phone [phone] Care Team Providers Care Certified Dialysis Technician Name Role Phone Melia Musa Care Team Information Re ceiver [phone] Problems Active Problems Provider Date Primary hypothyroidism Inocencio Patino M.D. O nset: 08/29/2022 Primary hyperparathyroidism Marcie Dinero Onset: 08/29/2022 Social History Type Date Description Comments Sex Unknown Lives With Spouse ETOH Use Drinks 2 Alcohol ic Beverages Per Week Tobacco Use Start: Unknown End: Unknown Patient is a former smoker smoked for 6 years total Allergies and adverse reactions Description No Known Drug Allergies Medications Active Medications SIG Qnty Indications Ordering Provider Date Atorvastatin [id number] Tablets Take 1 Tablet By Mouth Once Daily In The Evening. Inocencio Patino M.D. 08/11/2024 Levothyroxine [id number] Tablets Take 1 1/2 tablets on Friday, 2 tablets on Friday, 1 tablet the remaining days. Inocencio Patino M.D. 08/11/2024 Quetiapine [id number] Tablets Take One Tablet By Mouth Every Day AT Bedtime Inocencio Patino M.D. 08/11/2024 [id number] Tablets 1 by mouth every day Inocencio Patino M.D. 08/11/2024 [id number] Tablets ER 12HR 2 tabs by mouth every day Inocencio Patino M.D. 08/11/2024 Diltiazem HCL ER [id number] Caps ER 24HR 1 by mouth every day Inocencio Patino M.D. 10/08/2023 Vital Signs Date Vital Result Comment 08/11/2024 1:02pm BP Systolic 138 mmHg BP Diastolic 80 mmHg Heart Rate 72 /min Height 64.5 inches 5'4.50 Weight 231.00 lb BMI (Body Mass Index) 39.0 kg/m2 Results Test Acquired Date Facility Test Result H/L Range Note Creatinine 11/12/2024 [facility] Creatinine 1.39 mg/dL High 0.57-1.0 0 Magnesium 11/12/2024 [facility] Magnesium 2.3 mg/dL 1.6-2.3 Basic Metabolic Panel (8) 11/12/2024 [facility] Glucose 96 mg/dL 70-99 BUN 29 mg/dL High 8- eGFR 41 mL/min/1.7 3 Low >59 BUN/Creatinine Ratio 21 12- Sodium 143 mmol/L 134-144 Potassium 4.6 mmol/L 3.5-5.2 Chloride 107 mmol/L High 96-106 Carbon Dioxide, Total 22 mmol/L 20-29 Calcium 11/12/2024 [facility] Calcium 10.7 mg/dL High 8.7-10.3 1 Albumin 11/12/2024 [facility] Albumin 4.1 g/dL 3.9-4.9 Phosphorus 11/12/2024 [facility] Phosphorus 3.1 mg/dL 3.0-4.3 TSH+Free T4 11/12/2024 [facility] TSH 3.590 uIU/mL 0.450-4. 500 T4,Free(Direct) 0.90 ng/dL 0.82- 1.7 7 Basic Metabolic Panel 02/03/2024 [facility] Glucose 107 mg/dL High 70-99 BUN 29 mg/dL High 06-29 Creatinine 1.61 mg/dL High 0.57-1.0 0 eGFR 35 mL/min/1.7 3 Low >59 BUN/Creatinine Ratio 18 12- Sodium 144 mmol/L 134-144 Potassium 4.5 mmol/L 3.5-5.2 Chloride 107 mmol/L High 96-106 Carbon Dioxide, Total 22 mmol/L 20-29 Anion Gap 15.0 mmol/L 10.0-18. 0 Calcium 11.4 mg/dL High 8.7-10.3 Albumin 02/03/2024 [facility] Albumin 4.5 g/dL 3.9-4.9 PTH, Intact 02/03/2024 [facility] PTH, Intact 70 pg/mL High 15-65 Vitamin D, 25-Hydroxy 02/03/2024 [facility] Vitamin D, 25-Hydroxy 32.0 ng/mL 30.0-100 .0 2 Basic Metabolic Panel 12/08/2023 [facility] Glucose 111 mg/dL High (70-99) BUN 24 mg/dL High (8-23) Creatinine 1.5 mg/dL High (0.5-1.0 ) Sodium 145 mmol/L (133-145 ) Potassium 4.9 mmol/L (3.6-5.2 ) Chloride 111 mmol/L High (98-107) Bicarbonate 26 mmol/L (22-29) Anion Gap 8 (4-17) Calcium 11.1 mg/dL High (8.6-10. 5) Estimated GFR Creatinine 37 ML/MIN/1.7 3M2 3 Albumin 12/08/2023 [facility] Albumin 4.3 GM/DL (3.4-4.8 ) Comprehensive Metabolic Panl 09/30/2023 [facility] Glucose 114 mg/dL High (70-99) BUN 23 mg/dL (8-23) Creatinine 1.5 mg/dL High (0.5-1.0 ) Sodium 147 mmol/L High (133-145 ) Potassium 4.6 mmol/L (3.6-5.2 ) Chloride 112 mmol/L High (98-107) Bicarbonate 27 mmol/L (22-29) Anion Gap 8 (4-17) Albumin 4.6 GM/DL (3.4-4.8 ) Calcium 11.3 mg/dL High (8.6-10. 5) Bilirubin,Total 0.4 mg/dL (0-1.2 ) Total Protein 6.5 GM/DL (6.2-8.2 ) Ag Ratio 2.4 Ast 16 U/L (0-32) Alk Phos 91 U/L (35-104) Alt 22 U/L (0-33) Estimated GFR Creatinine 39 ML/MIN/1.7 3M2 4 Basic Metabolic Panel 06/12/2023 [facility] Glucose 103 mg/dL High (70-99) BUN 24 mg/dL High (8-23) Creatinine 1.5 mg/dL High (0.5-1.0 ) Sodium 144 mmol/L (133-145 ) Potassium 4.9 mmol/L (3.6-5.2 ) Chloride 109 mmol/L High (98-107) Bicarbonate 26 mmol/L (22-29) Anion Gap 9 (4-17) Calcium 11.1 mg/dL High (8.6-10. 5) Estimated GFR Creatinine 37 ML/MIN/1.7 3M2 5 Phosphorus 06/12/2023 [facility] Phosphorus 2.7 mg/dL (2.5-4.5 ) PTH, Intact 06/12/2023 [facility] PTH, Intact 138 pg/mL High (15-65) TSH With Reflex To FT4 06/12/2023 [facility] TSH With Reflex To FT4 1.15 uIU/mL (0.4-4.2 ) Basic Metabolic Panel 04/01/2023 [facility] Glucose 110 mg/dL High (70-99) BUN 23 mg/dL (8-23) Creatinine 1.6 mg/dL High (0.5-1.0 ) Sodium 145 mmol/L (133-145 ) Potassium 4.5 mmol/L (3.6-5.2 ) Chloride 112 mmol/L High (98-107) Bicarbonate 25 mmol/L (22-29) Anion Gap 8 (4-17) Calcium 11.1 mg/dL High (8.6-10. 5) Estimated GFR Creatinine 37 ML/MIN/1.7 3M2 6 TSH 04/01/2023 [facility] TSH 4.66 uIU/mL High (0.4-4.2 ) TSH 09/13/2022 [facility] TSH 4.37 uIU/mL High (0.4-4.2 ) Basic Metabolic Panel 09/13/2022 [facility] Glucose 106 mg/dL High (70-99) BUN 19 mg/dL (8-23) Creatinine 1.5 mg/dL High (0.5-1.0 ) Sodium 145 mmol/L (133-145 ) Potassium 5.2 mmol/L (3.6-5.2 ) Chloride 111 mmol/L High (98-107) Bicarbonate 26 mmol/L (22-29) Anion Gap 8 (4-17) Calcium 10.9 mg/dL High (8.6-10. 5) Estimated GFR Creatinine 38 ML/MIN/1.7 3M2 7 Albumin 09/13/2022 [facility] Albumin 4.4 GM/DL (3.4-4.8 ) Phosphorus 09/13/2022 [facility] Phosphorus 2.7 mg/dL (2.5-4.5 ) Albumin 08/22/2022 [facility] Albumin 4.9 GM/DL High (3.4-4.8 ) Basic Metabolic Panel 08/22/2022 [facility] Glucose 109 mg/dL High (70-99) BUN 24 mg/dL High (8-23) Creatinine 1.4 mg/dL High (0.5-1.0 ) Sodium 141 mmol/L (133-145 ) Potassium 5.0 mmol/L (3.6-5.2 ) Chloride 107 mmol/L (98-107) Bicarbonate 25 mmol/L (22-29) Anion Gap 9 (4-17) Calcium 10.8 mg/dL High (8.6-10. 5) Estimated GFR Creatinine 43 ML/MIN/1.7 3M2 8 Phosphorus 08/22/2022 [facility] Phosphorus 2.9 mg/dL (2.5-4.5 ) TSH 08/22/2022 [facility] TSH 6.14 uIU/mL High (0.4-4.2 ) 25Oh Vitamin D 08/22/2022 [facility] 25Oh Vitamin D 42.2 NG/ML (20-50) PTH, Intact 08/22/2022 [facility] PTH, Intact 96 pg/mL High (15-65) 1 Verified by repeat analysis 2 Vitamin D deficiency has been defined by the [place] of [employer] and an Endocrine Society practice guideline as a level of serum 25-OH vitamin D less than 20 ng/mL (1,2). The Endocrine Society went on to further define vitamin D insufficiency as a level between 21 and 29 ng/mL (2). 1. IOM ([place] of [employer]). 2010. Dietary reference intakes for calcium and D. [place]: The National Academies Press. 2. Patricia BANGURA, Santos MOSER, Rico ESPINOZA, et al. Evaluation, treatment, and prevention of vitamin D deficiency: an Endocrine Society clinical practice guideline. JCEM. 2010; 96(2):1911-30. 3 Creatinine based est imated glomerular filtration (eGFR) in adults is calculated using the National Kidney Foundation recommended 2021 CKD-EPI equation. Estimates GFR from serum creatinine, age and sex. 4 Creatinine based est imated glomerular filtration (eGFR) in adults is calculated using the National Kidney Foundation recommended 202 CKD-EPI equation. Estimates GFR from serum creatinine, age and sex. 5 Creatinine based est imated glomerular filtration (eGFR) in adults is calculated using the National Kidney Foundation recommended 202 CKD-EPI equation. Estimates GFR from serum creatinine, age and sex. 6 Creatinine based est imated glomerular filtration (eGFR) in adults is calculated using the National Kidney Foundation recommended 202 CKD-EPI equation. Estimates GFR from serum creatinine, age and sex. 7 Creatinine based est imated glomerular filtration (eGFR) in adults is calculated using the National Kidney Foundation recommended 202 CKD-EPI equation. Estimates GFR from serum creatinine, age and sex. 8 Creatinine based est imated glomerular filtration (eGFR) in adults is calculated using the National Kidney Foundation recommended 202 CKD-EPI equation. Estimates GFR from serum creatinine, age and sex. Procedures Date Code Description Status 02/26/2023 NSHOWOFF No Show Office Visit Complet ed Medical Devices Description No Information Available Encounters Type Date Location Provider Dx Diagnosis Office Visit 08/11/2024 1:00p Main Office Inocencio Patino M.D. E21.3 Hyperparathyroidism, unspecified Assessments Date Code Description Provider 08/11/2024 E21.3 Hyperparathyroidism Inocencio Azul M.D. Plan of Treatment Future Appointment(s):* 02/10/2025 9:00 am - Inocencio Patino M.D. at Main Office 02/06/2024 - Inocencio Patino M.D.* E21.3 Hyperparathyroidism, unspecified * E03.9 Hypothyroidism, unspecified Functional Status Description No Information Available Mental Status Description No Information Available Referrals Description No Information Available
--- OUTSIDE RECORDS SUMMARY | 2025-01-12 12:52 | XMS_ITS | Encounter Summary ---
Author Organization [facility] Address [address] [place] [address] Care Team Providers Care Safety Investigator Name Role Phone Melia Musa PA-C Primary Care Provi nixon Dirk Hope MD Unavailable Alejandra Coley MD Unavailable Paul Kumar MD Unavailable Unavailable Encounter Details Date Type Department Care Team (Late st Contact Info) Description 12/21/2024 Orders Only [facility] [address] [facility] [address] [place] [phone] Melia Musa PA-C [address] [place] [address] H/O motion sickness (Primary Dx) Social History Tobacco Use Types Packs/Day Years Used Date Smoking Tobacco: Former Cigarettes Smokeless Tobacco: Never Alcohol Use Standard Drinks/Week Comments Yes 0 (1 standard drink = 0.6 oz pur e alcohol) when I go out to dinner [facility] Utilities Answer Date Recorded In the past 12 months has [employer] electric, gas, oil, or water company threatened [...] and Family Not on file 09/05/2024 Attends [employer] Not on file 09/05 Active Member [...] any time in the past 12 m [facility] you [facility] or living in a [facility] (including now)? No 09/05/2024 Education Answer Date [...] Info) Description 01/17/2025 1:40 PM EDT Consult [facility] [place] [address] [place] [phone] Melia Musa PA-C [address] [place] [address] Dominik Samantha L, CHARTER BOAT OPERATOR [address] [place] [address] 03/30/2025 11:30 AM EDT Office Visit [facility] [address] [place] [address] Melia Musa PA-C [address] [place] [address] documented as of this encounter Visit Diagnoses Diagnosis H/O motion sickness- Primary documented in this encounter Care Teams Safety Investigator Relationship Specialty Start Date End Date Melia Musa PA-C [address] [place] [place] [address] PCP - General Internal Medicine 02/18/24 Dirk Hope MD [address] [place] [address] Physician Nephrology 02/18/24 Alejandra Coley MD [address] [address] Referring Provider 02/18/24 Paul Kumar MD [address] [address] Referring Provider Gastroenterology 02/18/24 Inocencio Patino Physician Endocrinology 02/03/24 Yolanda Tinsley Nurse Practitioner Breast Surgery-Scan 02/02/24 documented as of this encounter
--- OUTSIDE RECORDS SUMMARY | 2025-01-12 12:52 | XMS_ITS | Encounter Summary ---
Author Organization [facility] Address [address] [place] [address] Care Team Providers Care Leather Stripping Machine Operator Name Role Phone Melia Musa PA-C Primary Care Provi nixon Dirk Hope MD Unavailable Alejandra Coley MD Unavailable Paul Kumar MD Unavailable Unavailable Encounter Details Date Type Department Care Team (Late st Contact Info) Description 03/25/2024 Scanned Document [facility] [address] [facility] [address] [place] [address] Primary Care, Scan Social History [...] Info) Description 01/17/2025 1:40 PM EDT Consult [facility] Medical [facility] [place] [address] [place] [phone] Melia Musa PA-C [address] [place] [address] Samantha Lehman, CASTING OPERATOR [address] [address] [place] [phone] 03/30/2025 11:30 AM EDT Office Visit [facility] [address] [place] [address] Melia Musa PA-C [address] [place] [address] documented as of this encounter Visit Diagnoses Not on filedocumented in this encounter Care Teams Leather Stripping Machine Operator Relationship Specialty Start Date End Date Melia Musa PA-C [address] [place] [address] PCP - General Internal Medicine 02/18/24 Dirk Hope MD [address] [place] [address] Physician Nephrology 02/18/24 Alejandra Coley MD [address] [address] Referring Provider 02/18/24 Paul Kumar MD [address] [address] Referring Provider Gastroenterology 02/18/24 Inocencio Patino Physician Endocrinology 02/03/24 Yolanda Tinsley Nurse Practitioner Breast Surgery-Scan 02/02/24 documented as of this encounter
--- OUTSIDE RECORDS SUMMARY | 2025-01-12 12:52 | XMS_ITS | Encounter Summary ---
Author Organization [facility] Address [address] [place] [address] Care Team Providers Care Stereo Equipment Installer Name Role Phone Melia Musa PA-C Primary Care Provi nixon Dirk Hope MD Unavailable Alejandra Coley MD Unavailable Paul Kumar MD Unavailable Unavailable Reason for Visit * Reason Comments Appointment Encounter Details Date Type Department Care Team (Late st Contact Info) Description 12/15/2024 Telephone [facility] [address] [place] [address] Melia Musa PA-C [address] [place] [address] Appointment Social History Tobacco Use Types Packs/Day Years Used Date Smoking Tobacco: Former Cigarettes Smokeless Tobacco: Never Alcohol Use Standard Drinks/Week Comments Yes 0 (1 standard drink = 0.6 oz pur e alcohol) when I go out to dinner [facility] Utilities Answer Date Recorded In the past 12 months has [employer] electric, gas, oil, or water company threatened [...] and Family Not on file 09/05/2024 Attends [employer] Not on file 09/05 Active Member [...] any time in the past 12 m [facility], were you homeless or living in a [place] [facility] [place] (including now)? No 09/05/2024 Education Answer Date [...] Telephone Encounter - Lety Cazares RN - 12/16/2024 10:57 AM EST Call out to patient. Patient triaged to [facility] walk [facility] clinic. Patient states that I don't think that I have an infection. 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 Patient states that she will continue to monitor her symptoms. documented in this encounter Plan of Treatment Upcoming Encounters Date Type Department Care Team (Late st Contact Info) Description 01/17/2025 1:40 PM EDT Consult [facility] Medical Weight [facility] [place] [address] [place] [phone] Melia Musa PA-C [address] [place] [address] Samantha Lehman APRN [facility] [address] [place] [address] 03/30/2025 11:30 AM EDT Office Visit [facility] [address] [place] [address] Melia Musa PA-C [address] [place] [address] documented as of this encounter Visit Diagnoses Not on filedocumented in this encounter Care Teams Stereo Equipment Installer Relationship Specialty Start Date End Date Melia Musa PA-C [address] [place] [address] PCP - General Internal Medicine 02/18/24 Dirk Hope MD [address] [place] [address] Physician Nephrology 02/18/24 Alejandra Coley MD [address] [address] Referring Provider 02/18/24 Paul Kumar MD [facility] [address] [address] Referring Provider Gastroenterology 02/18/24 Inocencio Patino Physician Endocrinology 02/03/24 Yolanda Tinsley Nurse Practitioner Breast Surgery-Scan 02/02/24 documented as of this encounter
--- OUTSIDE RECORDS SUMMARY | 2025-01-12 12:52 | XMS_ITS | Clinical Summary ---
Author Organization [facility] Address [address] [place] [address] Care Team Providers Care Back Grinder Name Role Phone Melia Musa PA-C Primary Care Provi nixon Dirk Hope MD Unavailable Alejandra Coley MD Unavailable Paul Kumar MD Unavailable Unavailable Allergies No known active allergies Medications Medication Sig Dispensed Refills Start Date End Date Status aspirin enteric coated (ECOTRIN LOW STRENGTH) 81 MG EC tablet Take 1 tablet (81 mg total) by mouth daily. Active Cholecalciferol 25 MCG (1000 UT) Tablet Dispersible Take 1 tablet by mouth daily. Active famotidine (PEPCID) 20 MG tablet Take 1 tablet (20 mg total) by mouth 2 times a day. Active QUEtiapine (SEROquel) 50 MG tablet Take 3 tablets (150 mg total) by mouth nightly. 11/17/2023 Active Gemtesa 75 MG tablet Take 1 tablet (75 mg total) by mouth daily. 01/24/2024 Active LORazepam (ATIVAN) 0.5 MG tablet Take 1 tablet (0.5 mg total) by mouth 3 times daily (every 8 hours) as needed. Active multivitamin Tab tablet Take 1 tablet by mouth daily. Active glucosamine chondroitin complex (OSTEO BI-FLEX) Tab tablet Take by mouth. Active carBAMazepine (TEGretol XR) 400 MG 12 hr tablet Take 1 tablet (400 mg total) by mouth 2 times a day. 04/28/2024 Active Tiadylt ER 240 MG 24 hr capsuleIndications:P rimary hypertension Take 1 capsule (240 mg total) by mouth daily. 90 capsule 3 06/15/2024 Active aMILoride (MIDAMOR) 5 MG tabletIndications:Pr imary hypertension TAKE ONE-HALF TABLET (2.5MG) BY MOUTH ONCE DAILY. 30 tablet 6 10/11/2024 Active atorvastatin (LIPITOR) 80 MG tabletIndications:Ot her hyperlipidemia TAKE ONE TABLET BY MOUTH EVERY DAY 30 tablet 3 11/08/2024 Active levothyroxine (SYNTHROID, LEVOTHROID) 200 MCG tabletIndications:Ac quired hypothyroidism TAKE ONE TABLET BY MOUTH ONCE DAILY EXCEPT ON SUNDAYS TAKE 1&1/2 TABLETS. 60 tablet 12/20/2024 Active scopolamine (TRANSDERM-SCOP) patchIndications:H/O motion sickness Place 1 patch on the skin every third day (72 hrs). 5 patch 1 12/21/2024 Active levothyroxine (SYNTHROID, LEVOTHROID) 200 MCG tabletIndications:Ac quired hypothyroidism TAKE ONE TABLET BY MOUTH ONCE DAILY EXCEPT ON SUNDAYS TAKE 1&1/2 TABLETS. 60 tablet 10/26/2024 Discontinued Active Problems Problem Noted Date Diagnosed Date History of breast cancer 09/07/2024 Foot pain, bilateral 04/03/2024 History of tobacco use 02/18/2024 IFG (impaired fasting glucose) 02/18/2024 Bipolar 1 disorder 02/18/2024 Other hyperlipidemia 02/18/2024 Acquired hypothyroidism 02/18/2024 Gastroesophageal reflux disease without esophagi tis 02/18/2024 Primary osteoarthritis of both knees 02/18/2024 History of colon polyps 02/18/2024 Gallstones 02/18/2024 OAB (overactive bladder) 02/18/2024 Fatty liver 02/18/2024 Severe obesity 04/14/2023 02/18/2024 Obstructive sleep apnea syndrome 03/28/2022 02/18/2024 Hypercalcemia 01/22/2021 02/18/2024 Hypertension 01/22/2021 02/18/2024 Primary hyperparathyroidism 01/22/202102/01 Overview (02/18/2024): Due to lithium Stage 3a chronic kidney disease 01/22/2021 02/18/2024 Overview (02/18/2024): Baseline creat 1.5; GFR 37 Resolved Problems Problem Noted Date Diagnosed Date Resolved Date Malignant neoplasm of breast 02/18/2024 02/18/2024 09/07/2024 Overview (02/18/2024): Stage IIa, pT1c PN1A M0 infiltrating ductal carcinoma left breast, grade 3/ER/ID and H ER 2/CHRISTIN negative; status post breast conserving surgery; status post radiation and chemo. History of kidney stones 02/18/202412/2023 Encounters Date Type Department Care Team Description 12/21/2024 Orders Only [address] [phone] Melia Musa PA-C H/O motion sickness (Primary Dx) 12/20/[address] [phone] Melia Musa PA-C Acquired hypothyroidism 12/16/2024 Orders Only [address] [phone] Melia Musa PA-C Mitral valve problem (Primary Dx); CAD in [place] artery 12/15/[address] [phone] Melia Musa PA-C Appointment 12/14/2024 Travel 12/09/[address] [phone] Melia Musa PA-C 12/07/[address] [phone] Melia Musa PA-C 12/07/2024 Telephone [id number] [place] [phone] Samantha Lehman, BLEACHING SUPERVISOR Other 11/26/[address] [phone] Melia Musa PA-C 11/25/2024 Telephone [facility] [address] [place] [phone] Samantha Lehman, BLEACHING SUPERVISOR Other; Prior Authorization 11/25/2024 Scanned Document [facility] [address] [place] [address] Endocrinology, Scan 11/16/[address] [phone] Melia Musa PA-C 11/07/[address] [address] Melia Musa PA-C Other hyperlipidemia 11/04/2024 Telephone [facility] [address] [phone] Samantha Lehman, BLEACHING SUPERVISOR Appointment (LMM FOR PATIENT TO CALL TO SCHEDULE ED SESSION) 11/02/[address] [phone] Melia Musa PA-C Acquired hypothyroidism 10/25/[address] [phone] Melia Musa PA-C Acquired hypothyroidism (Primary Dx) from Last 3 Months Immunizations Name Administration Dates Next Due Covid-19 mRNA Bivalent Vacci ne - Moderna 10 mcg/0.2 mL 6mo-5yr 09/30/2023 Covid-19 mRNA Bivalent Vacci ne - Moderna 50 mcg/0.5mL 12+ 09/30/2023,09/24/2022,08/30/2021,01/05,11/29/2020 Influenza, Quadrivalent (FLU ARIX, AFLURIA, FLULAVAL, FLUZONE) Preservative Free IM 08/27/2023 Pneumococcal Conjugate 13-Valent 11/29/2021 Pneumococcal Polysaccharide 23-Valent 09/07/2024 Tdap 08/21/2020 Zoster Vaccine Live/Attenuat ed (Zostavax) 07/10/2016 Zoster Vaccine Recombinant (Shingrix) 07/04/2022 ,04/02/2022 Social History Tobacco Use Types Packs/Day Years Used Date Smoking Tobacco: Former Cigarettes Smokeless Tobacco: Never Tobacco Cessation:Counseling Given: Not Answered Alcohol Use Standard Drinks/Week Comments Yes 0 (1 standard drink = 0.6 oz pur e alcohol) when I go out to dinner [facility] Utilities Answer Date Recorded In the past 12 months has [employer], gas, oil, or water [facility] threatened to shut off services in your home? No 09/05/2024 Social Connection and Isolat ion Panel [NHANES] Answer Date Recorded In a typical week, how many times do you talk on the phone with family, friends, or neighbors? More than three times a week 09/05/2024 Frequency of Social Gatherin gs with Friends and Family Not on file 09/05/2024 Attends Church Services Not on file 09/05 Active Member [...] any time in the past 12 m [facility], were you homeless or living in a intermediate (including now)? No 09/05/2024 Education Answer Date Recorded What is the highest level of school you have completed or the highest degree you have received? Associate degree: academic program 09/05/2024 Sex and Gender Information Value Date Recorded Sex Assigned at Female 02/18/2024 10:27 PM EDT Gender Identity Female 02/18/2024 10:27 PM EDT Sexual Orientation Heterosexual (straight) 02/17 10:27 PM EDT Last Filed Vital Signs Vital Sign Reading Time Taken Comments Blood Pressure 132/78 09/07/2024 2:50 PM EST Pulse 75 09/07/2024 2:50 PM EST Temperature 36.6 ??C (97.9 ??F) 09/07/2024 2:50 PM ES T Respiratory Rate 16 09/07/2024 2:50 PM EST Oxygen Saturation 96% 09/07/2024 2:50 PM EST Inhaled Oxygen Concentration - - Weight 115 kg (253 lb) 09/07/2024 2:50 PM EST Height 165.1 cm (5' 5 ) 09/07/2024 2:50 PM EST Body Mass Index 42.1 09/07/2024 2:50 PM EST Plan of Treatment Upcoming Encounters Date Type Department Care Team (Late st Contact Info) Description 01/17/2025 1:40 PM EDT Consult [facility] [place] [address] [place] [address] Melia Musa PA-C [address] [place] [address] Samantha Lehman, BLEACHING SUPERVISOR [facility] [address] [place] [phone] 03/30/2025 11:30 AM EDT Office Visit [facility] [address] [place] [phone] Melia Musa PA-C [address] [place] [address] Health Maintenance Due Date Last Done Comments Hepatitis C Virus Screening 1955 Physical 1974 DXA Bone Density (Females,Ages 65 and older) 2021 Influenza Vaccine 06/03/2024 08/27/2023 COVID-19 Vaccine ( season) 2024 09/30/2023, 09/30/2023, 09/24/2022, Additional history exists Colonoscopy 02/13/2025 02/13/2022 (Prev iously Completed) Mammogram 07/24/2025 07/24/2023 (Prev iously Completed) Annual Wellness Visit 09/08/2025 09/07/2024 DTaP/Tdap/Td Vaccines (2 - Td or Tdap) 08/21/2030 08/21/2020 RSV Vaccine 60 years and older and Patients (1 - 1-dose 75+ series) 2031 Zoster (Shingles) Vaccine Completed 2021, 04/02/2022, 07/10/2016 Pneumococcal Vaccines 50+ Completed 09/07/2024, Hepatitis B Vaccines Aged Out No long er eligible based on patient's age to complete this topic Procedures Procedure Name Priority Date/Time Associated Diagnosis Comments ALANINE AMINOTRANS (ALT) Routine 11/12/2024 Fatty liver Hyperlipidemia, unspecified hyperlipidemia type LIPID PANEL WITH NONHDL Routine 11/12/2024 Fatty liver Hyperlipidemia, unspecified hyperlipidemia type from Last 3 Months Results * Lipid panel (11/12/2024) Blood Blood specimen / Unknown 11/12/2024 Melia Musa PA-C LAB BLOOD O RDERABLES [place] * ALT (11/12/2024) Blood Blood specimen / Unknown 11/12/2024 Melia Musa PA-C LAB BLOOD O RDERABLES [place] from Last 3 Months Care Teams Back Grinder Relationship Specialty Start Date End Date Melia Musa PA-C [address] [place] [address] PCP - General Internal Medicine 02/18/24 Dirk Hope MD [address] [place] [address] Physician Nephrology 02/18/24 Alejandra Coley MD [address] [address] Referring Provider 02/18/24 Paul Kumar MD [address] [address] Referring Provider Gastroenterology 02/18/24 Inocencio Patino Physician Endocrinology 02/03/24 Yolanda Tinsley Nurse Practitioner Breast Surgery-Scan 02/02/24
--- OUTSIDE RECORDS SUMMARY | 2025-01-12 12:52 | XMS_ITS | Encounter Summary ---
Author Organization [facility] Address [address] [place] [address] Care Team Providers Care Hairspring Truer Name Role Phone Melia Musa PA-C Primary Care Provi nixon Dirk Hope MD Unavailable Alejandra Coley MD Unavailable Paul Kumar MD Unavailable Unavailable Reason for Referral * Cardiology (Routine) - Authorized Specialty Diagnoses / Procedures Referred By Contac t Referred To Contact Cardiovascular Disease Diagnoses Mitral valve problem CAD in [place] artery Melia Musa PA-C [address] [place] [address] [facility] [place] [address] Referral ID Status Reason Start Date Expiration Date V isits Requested Visits Authorized [id number] Authorized Consult 12/16/2024 12/17/2025 1 1 Question Answer Reason for referral: Other Other reason: Thicken of heart wall, mitral valve, and blocked coronary artery Comments Patient is seeing DR Conner Daugherty Encounter Details Date Type Department Care Team (Late st Contact Info) Description 12/16/2024 Orders Only [address] [place] [address] Melia Musa PA-C [address] [place] [address] Mitral valve problem (Primary Dx); CAD in [place] artery Social History Tobacco Use Types Packs/Day Years Used Date Smoking Tobacco: Former Cigarettes Smokeless Tobacco: Never Alcohol Use Standard Drinks/Week Comments Yes 0 (1 standard drink = 0.6 oz pur e alcohol) when I go out to dinner [facility] Utilities Answer Date Recorded In the past 12 months has th e electric, gas, oil, or water company [...] and Family Not on file 09/05/2024 Attends [employer] Services Not on file 09/05 Active Member [...] any time in the past 12 m [facility], were you homeless or living in a nursing home (including now)? No 09/05/2024 Education Answer Date [...] Info) Description 01/17/2025 1:40 PM EDT Consult [facility] [place] [address] [place] [phone] Melia Musa PA-C [address] [place] [address] Samantha Lehman, KRISTIN [address] [place] [phone] 03/30/2025 11:30 AM EDT Office Visit [facility] [address] [facility] [address] [place] [address] Melia Musa PA-C [address] [place] [address] Scheduled Referrals Name Type Priority Associated Diagnoses Order Schedule Amb referral to Cardiology Outpatient Referral Routine Mitral valve problem CAD in [place] artery Ordered: 12/16/2024 documented as of this encounter Visit Diagnoses Diagnosis Mitral valve problem- Primary Other and unspecified mitral valve diseases CAD in [place] artery documented in this encounter Care Teams Hairspring Truer Relationship Specialty Start Date End Date Melia Musa PA-C [address] [place] [address] PCP - General Internal Medicine 02/18/24 Dirk Hope MD [address] [place] [address] Physician Nephrology 02/18/24 Alejandra Coley MD [address] [place] [address] Referring Provider 02/18/24 Paul Kumar MD [address] [place] [address] Referring Provider Gastroenterology 02/18/24 Inocencio Patino Physician Endocrinology 02/03/24 Yolanda Tinsley Nurse Practitioner Breast Surgery-Scan 02/02/24 documented as of this encounter
--- OUTSIDE RECORDS SUMMARY | 2025-01-12 12:52 | XMS_ITS | Continuity of Care Document ---
Author Organization [facility] ter Address [address] [place] [address]- Care Team Providers Care Head Correction Officer Name Role Phone Melia Ford Primary Care Physician ( [phone] [id number] Date[facility] 11/29/24 - 01/04/[address] [address]- Attending Physician: Divya Henning Admitting Physician: Divya Henning Referring Physician: Divya Henning Encounter Type: Pre-Outpt Allergies, Adverse Reactions, Alerts Substance Criticality Severity [...] a schedule II opioid drug. Start Date: 5/22/24 Status: Ordered Repeat number: 1 Pepcid 20 [...] Date: 08/20/17 Status: Ordered Repeat number: 1 TEGretol 200 mg oral tablet 200 mg, 1, tablet, By Mouth, 4 times a day, Refills 0, Maintenance, 11/09/24 1:50:00 PM EST, Partial fill upon patient request if the prescription is for a schedule II opioid drug. Start Date: 11/09/24 Status: Ordered Repeat number: 1 Vitamin D3 = 2,000 International_Units, By Mouth, 0 Refills, Maintenance, 11/09/13 12:04:54 PM EST Start Date: 11/09/13 Status: Ordered Repeat number: 1 Problem List Condition Confirmation Course Effective Dates Status Health St atus Informant Breast cancer, Infiltrating ductal carcinoma, T1c N1, Mx ER negative, AR negative, HER-2/guido negative by FISH (stage II), diagnosed in 2007. Confirmed Active Breast cancer, Infiltrating ductal carcinoma, T1c N1, Mx ER negative, AR negative, HER-2/guido negative by FISH (stage II), diagnosed in 2007. Confirmed Active IBS (irritable colon syndrome) Confirmed Active Obstructive sleep apnea Confirmed Active Restless leg syndrome Confirmed Active Severe obesity (BMI 35.0-39.9) with comorbidity Confirmed Active Social History Social History Type Response Smoking Status Former smoker entered on: 02/20/15 Sex Sex Representation Female (finding) Patient Care team information Care Team Personnel Name: Melia Ford Position: Reference Physician Member Role: PCP Address: [address] [place] [address] [address] [place] [address]- [place] Telecom: Care Team Related Persons Name: ROMULO KIRBY Insurance Providers Guarantor name: LACHELLE MIRTA Health Plan Information #: 2 Payer: [employer] Member Number: [id number] Policy Number: NA Group Number: [id number] Health Plan Information #: 1 Payer: MEDICARE PART B OUTPT Member Number: [id number] Policy Number: NA Group Number: [id number]
== END 2025-01-12 11:53 | disposition home or self-care (01) ==
LOC: HO.HKA 10:59
PROVIDERS: PCP Physician Assistant Medical; Visit Provider Internal Medicine Nephrology
DX: E21.1 Secondary hyperparathyroidism, not elsewhere classified (principal); T43.595A Adverse effect of other antipsychotics and neuroleptics, initial encounter; I10 Essential (primary) hypertension; N18.31 Chronic kidney disease, stage 3a
CPT/HCPCS: 99214

== ENCOUNTER → 2025-01-12 10:58 | Outpatient (BNVA) | payer MEDICARE, OTHER, SELFPAY | PROVIDERS: PCP Physician Assistant Medical; Visit Provider Internal Medicine Nephrology | DX: I12.9 Hypertensive chronic kidney disease with stage 1 through stage 4 chronic kidney disease, or unspecified chronic kidney disease (principal); N18.31 Chronic kidney disease, stage 3a; E21.1 Secondary hyperparathyroidism, not elsewhere classified; T43.595D Adverse effect of other antipsychotics and neuroleptics, subsequent encounter | CPT/HCPCS: 99212 ==

== ENCOUNTER 2025-07-15 10:39 | Outpatient (AMB) | payer MEDICARE, OTHER, SELFPAY ==
--- NOTE | 2025-07-15 10:41 | HO.NEPHOV_ITS ---
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 She had been on lithium for over 30 years which has been weaned off. She has a new psychiatrist. She she is on Tegretol which she thinks needs to be changes to Depakote. She is known to have one cyst on one of her kidneys. She has no family history of renal disease. She has not a diabetic. She has hypertension and is on medications with good control. She does not take any regular nonsteroidal anti-inflammatory medications. Her mother had bipolar disease and has been on Depakote. She also has history of hypercalcemia with her serum calcium consistently around 11. She does not have any history of nephrolithiasis. She denies coronary artery disease, congestive heart failure, CVA, ROSHAN, PVD, carotid stenosis, froth or foam in the urine. She had taken PPI for a long time. She has had essential tremor which is well controlled. [facility] Medical History (Updated 04/16/24 @ 19:28 by Dirk Hope MD) Primary hypothyroidism Hypercalcemia Stage 3b chronic kidney disease (CKD) Surgical History Status post right knee replacement H/O tubal ligation History of breast surgery Family History Father Heart disease Social History Alcohol intake: current Comment: Occasionally Patient Tobacco Use Status: Former Tobacco user Review of Systems Const All systems reviewed & are unremarkable except as noted in HPI and below Physical Exam Const General: comfortable and no acute distress Orientation/consciousness: patient oriented x3 HEENT Head: Yes normocephalic Mouth: Normal oral and palatal mucosa present Eyes EOM: EOMs intact bilaterally Neck Neck: Yes supple Resp Auscultation: clear to auscultation bilaterally Cardio Jugular venous distension: no JVD Rate: regular rate GI Palpation (GI): Soft to palpation Auscultation: normal bowel sounds General: Yes no CVA tenderness Back/Spine/Pelvis Back: no CVA tenderness Skin General skin exam: no rashes or lesions noted Neuro General: patient oriented x3 and moves all extremities Extrem General: Yes no pedal edema Assessment & Plan Assessment & Plan (1) 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: Code(s): E21.1 - Secondary hyperparathyroidism, not elsewhere classified; T43.595A - Adverse effect of other antipsychotics and neuroleptics, initial encounter Category: Medical (2) Chronic kidney disease, stage 3, mod decreased GFR: Code(s): N18.30 - Chronic kidney disease, stage 3 unspecified Category: Medical Qualifiers: Chronic kidney disease stage 3 subtype: stage 3a (GFR 45-59) Qualified Code(s): N18.31 - Chronic kidney disease, stage 3a (3) Hypercalcemia: Code(s): E83.52 - Hypercalcemia Category: Medical (4) Hypertension: Code(s): I10 - Essential (primary) hypertension Category: Medical Qualifiers: Hypertension type: primary hypertension Qualified Code(s): I10 - Essential (primary) hypertension Plan Cami has creatinine of 1.29 now . 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 Her lithium is weaned off. Her serum calcium has been stable. She maintains good hydration. She has no renal calculus. She avoids nonsteroidal anti- inflammatories. Her blood pressure has been at goal. I have not made any medication changes today. Follow-up lab work ordered. All questions answered Orders: Orders Calcium 7 Months E21.1 - Secondary hyperparathyroidism, not elsewhere classified, I10 - Essential (primary) hypertension, N18.31 - Chronic kidney disease, stage 3a, T43.595A - Adverse effect of other antipsychotics and neuroleptics, initial encounter Parathyroid Hormone Intact 7 Months E21.1 - Secondary hyperparathyroidism, not elsewhere classified, I10 - Essential (primary) hypertension, N18.31 - Chronic kidney disease, stage 3a, T43.595A - Adverse effect of other antipsychotics and neuroleptics, initial encounter Creatinine 7 Months E21.1 - Secondary hyperparathyroidism, not elsewhere classified, I10 - Essential (primary) hypertension, N18.31 - Chronic kidney disease, stage 3a, T43.595A - Adverse effect of other antipsychotics and neuroleptics, initial encounter Blood Urea Nitrogen 7 Months E21.1 - Secondary hyperparathyroidism, not elsewhere classified, I10 - Essential (primary) hypertension, N18.31 - Chronic kidney disease, stage 3a, T43.595A - Adverse effect of other antipsychotics and neuroleptics, initial encounter Electrolytes 7 Months E21.1 - Secondary hyperparathyroidism, not elsewhere classified, I10 - Essential (primary) hypertension, N18.31 - Chronic kidney disease, stage 3a, T43.595A - Adverse effect of other antipsychotics and neuroleptics, initial encounter Coding Level of Care Code Est Pt Level 4 (95394) Diagnoses 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
[2025-07-15 10:54] VITALS: BP 114/60; PULSE 79; O2SAT 97; BMI 32.4
--- OUTSIDE RECORDS SUMMARY | 2025-07-15 12:14 | XMS_ITS | Encounter Summary ---
Author Organization [facility] Address [address] [place] [address] Care Team Providers Care Manager Switch Name Role Phone Melia Musa PA-C Primary Care Provi nixon Dirk Hope MD Unavailable Alejandra Coley MD Unavailable Paul Kumar MD Unavailable Unavailable Encounter Details Date Type Department Care Team (Late st Contact Info) Description 11/25/2024 Scanned Document [facility] [address] [place] [address] Endocrinology, Scan Social History Tobacco Use Types Packs/Day Years Used Date Smoking Tobacco: Former Cigarettes Smokeless Tobacco: Never Alcohol Use Standard Drinks/Week Comments Yes 0 (1 standard drink = 0.6 oz pur e alcohol) when I go out to dinner [facility] Utilities Answer Date Recorded In the past 12 months has [employer] electric, gas, oil, or water company threatened [...] and Family Not on file 09/05/2024 Attends [employer] Services Not on file 09/05 Active Member [...] any time in the past 12 m [facility], were you homeless or living in a senior living (including now)? No 09/05/2024 Education Answer Date Recorded What is the highest level of school you have completed or the highest degree you have received? Associate degree: academic program 09/05/2024 Comments No Sex and Gender Information Value Date Recorded Sex Assigned at Female 02/18/2024 10:27 PM EDT Legal Sex Female 1:19 PM EST Gender Identity Female 02/18/2024 10:27 PM EDT Sexual Orientation Heterosexual (straight) 02/17 10:27 PM EDT documented as of this encounter Plan of Treatment Upcoming Encounters Date Type Department Care Team (Late st Contact Info) Description 10/31/2025 9:30 AM EST Office Visit [address] [place] [phone] Melia Musa PA-C [address] [place] [address] 11/10/2025 1:00 PM EST Office Visit [facility] [place] [address] [place] [phone] Samantha Lehman, BUSINESS INSIGHT AND ANALYTICS MANAGER [address] [place] [address] documented as of this encounter Visit Diagnoses Not on filedocumented in this encounter Care Teams Manager Switch Relationship Specialty Start Date End Date Melia Musa PA-C [address] [place] [address] PCP - General Internal Medicine 02/18/24 Dirk Hope MD [address] [place] [address] Physician Nephrology 02/18/24 Alejandra Coley MD [address] [place] [address] Referring Provider 02/18/24 Paul Kumar MD [address] [place] [address] Referring Provider Gastroenterology 02/18/24 Inocencio Patino Physician Endocrinology 02/03/24 Yolanda Tinsley Nurse Practitioner Breast Surgery-Scan 02/02/24 documented as of this encounter
--- OUTSIDE RECORDS SUMMARY | 2025-07-15 12:14 | XMS_ITS | Encounter Summary ---
Author Organization [facility] Address [address] [place] [address] Care Team Providers Care Hand Straightener Name Role Phone Melia Musa PA-C Primary Care Provi nixon Dirk Hope MD Unavailable Alejandra Coley MD Unavailable Paul Kumar MD Unavailable Unavailable Reason for Visit * Reason Comments Referral Encounter Details Date Type Department Care Team (Late st Contact Info) Description 02/23/2024 Telephone [facility] [address] [place] [address] Melia Musa PA-C [address] [place] [address] Referral Social History Tobacco Use Types Packs/Day Years Used Date Smoking Tobacco: Former Cigarettes Smokeless Tobacco: Former Alcohol Use Standard Drinks/Week Comments Yes 0 (1 standard drink = 0.6 oz pur e alcohol) PHQ-2 Answer Date Recorded PHQ-2 Total Score 2 02/19/2024 Comments Unknown Sex and Gender Information Value [...] Description 10/31/2025 9:30 AM EST Office Visit [facility] [address] [place] [address] Melia Musa PA-C [address] [place] [address] 11/10/2025 1:00 PM EST Office Visit [facility] [place] [address] [place] [address] Samantha Lehman L, SENIOR ACCOUNT MANAGER [address] [place] [address] documented as of this encounter Visit Diagnoses Not on filedocumented in this encounter Care Teams Hand Straightener Relationship Specialty Start Date End Date Melia Musa PA-C [address] [place] [address] PCP - General Internal Medicine 02/18/24 Dirk Hope MD [address] [facility] [place] [address] Physician Nephrology 02/18/24 Alejandra Coley MD [facility] [place] [address] Referring Provider 02/18/24 Paul Kumar MD [address] [place] [address] Referring Provider Gastroenterology 02/18/24 Inocencio Patino Physician Endocrinology 02/03/24 Yolanad Tinsley Nurse Practitioner Breast Surgery-Scan 02/02/24 documented as of this encounter
--- OUTSIDE RECORDS SUMMARY | 2025-07-15 12:14 | XMS_ITS | Clinical Summary ---
Author Organization [facility] Address [address] [address] Phone Care Team Providers Care Block Saw Operator Name Role Phone Melia Musa PA-C Primary Care Provi nixon Allergies Active Allergy Reactions Criticality Noted Date Comments Deacon Inhibitors 12/13/2024 Other 03/28/2022 Other Reaction(s): DERMATONE - CONTACT DERMATITIS Other reaction(s): DERMATONE - CONTACT DERMATITIS Medications aMILoride (MIDAMOR) 5 MG tablet Take 5 mg by mouth daily. 03/24/2024 Active aspirin 81 MG EC tablet Take 81 mg by mouth daily. Active atorvastatin (LIPITOR) 80 MG tablet Take 1 tablet by mouth daily. 10/11/2024 Active carBAMazepine (TEGRETOL XR) 400 MG 12 hr tablet Take 400 mg by mouth 2 (two) times a day. 04/28/2024 Active dilTIAZem (CARDIZEM CD) 240 MG 24 hr capsule Take 240 mg by mouth daily. 06/15/2024 Active famotidine (PEPCID) 20 MG tablet Take by mouth 2 (two) times a day. Active levothyroxine (SYNTHROID, LEVOTHROID) 200 MCG tablet Take 200 mcg by mouth every morning. 10/26/2024 Active LINZESS 290 mcg Cap capsule Take 290 mcg by mouth daily before breakfast. Active LORazepam (ATIVAN) 0.5 MG tablet Take 0.5 mg by mouth every 8 (eight) hours as needed. 03/24/2024 Active QUEtiapine (SEROQUEL) 200 MG tablet Take 200 mg by mouth nightly at bedtime. Active GEMTESA 75 mg tablet Take 75 mg by mouth daily. 01/24/2024 Active valsartan (DIOVAN) 40 MG tablet Take 1 tablet (40 mg total) by mouth daily. 30 tablet 11 02/01/2025 Active Encounters Date Type Department Care Team Description 05/31/2025 Documentation [facility] [address] [place] [address] Conner Santos MD 05/26/2025 Telephone [facility] [address] [place] [address] Jen Wadsworth RN Kirshenbaum/ Jen/advice from Last 3 Months Social History Tobacco Use Types Packs/Day Years Used Date Smoking Tobacco: Never Assessed Education Answer Date Recorded Are you interested in more education? Not on calixto e 04/15/2024 Are you concerned about learning? Not on file 04/15/2024 No 04/15/2024 No 04/15/2024 Digital Access Answer Date Recorded No 04/15/2024 No 04/15/2024 Reliable internet access at home? Not on file 04/15/2024 Device with a working camera? Not on file Comments Unknown Sex and Gender Information Value Date Recorded Sex Assigned at Female 04/15/2024 3:45 PM EDT Legal Sex Female 7:15 PM EST Gender Identity Female 04/15/2024 3:45 PM EDT Sexual Orientation Straight 04/15/2024 3: 45 PM EDT Last Filed Vital Signs Vital Sign Reading Time Taken Comments Blood Pressure 130/90 12/13/2024 12:48 PM EST Pulse 72 12/13/2024 12:48 PM EST Temperature - - Respiratory Rate - - Oxygen Saturation 98% 12/13/2024 12: 48 PM EST Inhaled Oxygen Concentration - - Weight 100.2 kg (220 lb 14. 4 oz) 12/13/2024 12:48 PM EST with shoes Height - - Body Mass Index - - Plan of Treatment Health Maintenance Due Date Last Done Comments CARBAMAZEPINE (TEGRETOL) LEVEL 1956 POTASSIUM LEVEL 1956 TSH LEVEL 1956 DEPRESSION SCREENING 1968 SMOKING Hx and SMOKELESS TOBACCO SCREENING 1969 HEPATITIS C SCREENING 1974 MAMMOGRAM 1996 COLOGUARD 2001 COLONOSCOPY 2001 COLORECTAL CANCER SCREENING 2001 FIT TEST 2001 FOBT 2001 SIGMOIDOSCOPY 2001 VIRTUAL COLONOSCOPY 2001 RSV VACCINE (1 - Risk 60-74 years 1-dose series) 2016 OSTEOPOROSIS SCREENING INITIAL (ONE-TIME) 2021 PNEUMOCOCCAL VACCINES (50+ years) (2 of 2 - PPSV23) 01/24/2022 11/29/2021 INFLUENZA VACCINE (#1) 2025 , 11/29/2021, 10/03/2019 COVID-19 VACCINE ( season) 2025 09/30/2023, 09/24/2022, 08/30/2021, Additional history exists CREATININE LEVEL 01/03/2026 01/03/2025 Adult Td,Tdap Booster 08/21/2030 08/21/2020 ZOSTER VACCINES Completed 07/04/2022, 04/02/2022 HEPATITIS A VACCINES Aged Out No long er eligible based on patient's age to complete this topic HIB VACCINES Aged Out No longer eligi ble based on patient's age to complete this topic MENINGOCOCCAL VACCINES (ACWY) Aged Out No longer eligible based on patient's age to complete this topic MENINGOCOCCAL VACCINES (B) Aged Out N o longer eligible based on patient's age to complete this topic Medical Devices Not on file Procedures Procedure Name Priority Date/Time Associated Diagnosis Comments POCT CREATININE/EGFR Routine 01/03/2025 10:59 AM EST from Last 3 Months or Most Recently Relevant to Health Maintenance Results * (ABNORMAL) POCT Creatinine/eGFR (01/03/2025 10:59 AM EST) CRE POC 1.6(H) 0.5 - 1.2 mg/dL [facility] CT & MRI SUITE EGFR POC 35(L) >59 mL/min/1.7 3m2 [facility] CT & MRI SUITE Comment:Estimated glomerular filtration rate calculated using the CKD-EPI refit equation. 01/03/2025 10:5 9 AM EST 01/03/2025 11:02 AM EST Conner Santos MD POINT OF CARE TEST ORDERA BLES Final Result [facility] CT & MRI [address] [place] [phone] from Last 3 Months or Most Recently Relevant to Health Maintenance Insurance MEDICARE SUPPLEMENT MEDICARE PART A & B MEDICARE SUPPLEMENT MEDICARE PART A & [place] [address] [place] [address] MEDICARE SUPPLEMENT MEDICARE PART A & [place] [place] [address] MEDICARE SUPPLEMENT MEDICARE PART A & B [facility] MEDICARE SUPPLEMENT MEDICARE PART A & B [facility] MEDICARE SUPPLEMENT MEDICARE PART A & B [address] [place] [id number] Care Teams Block Saw Operator Relationship Specialty Start Date End Date Melia Musa PA-C PCP - General Physician Shear Operator Automatic 04/13/24 Additional Source Comments The information contained in this document represents components of the legal health record. It is not the complete legal health record.[facility]
--- OUTSIDE RECORDS SUMMARY | 2025-07-15 12:14 | XMS_ITS | Encounter Summary ---
Author Organization [facility] Address [address] [place] [address] Care Team Providers Care Relationship Associate Name Role Phone Melia Musa PA-C Primary Care Provi nixon Dirk Hope MD Unavailable Alejandra Coley MD Unavailable Paul Kumar MD Unavailable Unavailable Encounter Details Date Type Department Care Team (Late st Contact Info) Description 02/20/[address] [phone] Melia Musa PA-C [address] [place] [address] Social History Tobacco Use Types Packs/Day Years [...] Miscellaneous Notes * Telephone Encounter - Muriel Jessica - 02/20/2024 4:31 PM EDT Pt stated Melia told her to follow up with her after speaking to her pyschiatrist. She stated she can start the medication but at 2.5mg documented in this encounter Plan of Treatment Upcoming Encounters Date Type Department Care Team (Late st Contact Info) Description 10/31/2025 9:30 AM EST Office Visit [facility] [address] [place] [address] Melia Musa PA-C [address] [place] [address] 11/10/2025 1:00 PM EST Office Visit [facility] [place] [address] [place] [phone] Samantha Lehman, EVENT PLANNING MANAGER [address] [place] [address] documented as of this encounter Visit Diagnoses Not on filedocumented in this encounter Care Teams Relationship Associate Relationship Specialty Start Date End Date Melia Musa PA-C [address] [place] [address] PCP - General Internal Medicine 02/18/24 Dirk Hope MD [address] [place] [address] Physician Nephrology 02/18/24 Alejandra Coley MD [address] [place] [address] Referring Provider 02/18/24 Paul Kumar MD [address] [place] [address] Referring Provider Gastroenterology 02/18/24 Inocencio Patino Physician Endocrinology 02/03/24 Yolanda Tinsley Nurse Practitioner Breast Surgery-Scan 02/02/24 documented as of this encounter
--- OUTSIDE RECORDS SUMMARY | 2025-07-15 12:14 | XMS_ITS | Clinical Summary ---
Author Organization [facility] [address] [facility] Address [address] [place] [address] Phone Care Team Providers Care Bundle Tier Name Role Phone Melia Musa Primary Care Provider [phone] Allergies Active Allergy Reactions Criticality Noted Date Comments Other 06/03/2025 Other Reaction(s): DERMATONE - CONTACT DERMATITIS Medications atorvastatin (LIPITOR) 80 mg tablet 10/11/20 24 Active carBAMazepine XR (TEGretol XR) 400 mg 12 hr tablet Take 1 tablet (400 mg total) by mouth 2 (two) times a day. 09/16/20 24 Active Gemtesa 75 mg tablet tablet 10/08/20 24 Active famotidine (PEPCID) 20 mg tablet Take [...] ONCE DAILY BEFORE BREAKFAST 30 capsule 11 12/02/19 25 Active acetaminophen (TYLENOL) 325 mg tablet Take 2 tablets (650 mg total) by mouth. 08/20/20 17 Active aspirin 81 mg EC tablet Take 1 tablet (81 mg total) by mouth 1 (one) time each day. Active Zepbound 2.5 mg/0.5 mL injection INJECT 1 PEN 2.5MG) UNDER THE SKIN ONCE A WEEK. 03/18/20 25 Active valsartan (DIOVAN) 40 mg tablet Take 1 tablet (40 mg total) by mouth daily. 02/02/20 25 Active polyethylene glycol (Golytely) 236-22.74-6.74 -5.86 gram solution Take 4L by mouth once for one dose. May substitue any PEG. Starting at 2PM the day before your procedure drink 1 8oz glasses at your own pace until you complete half of the gallon. Finish 2nd half of the gallon at 8PM. 4000 mL 05/27/20 25 Active bisacodyL (DULCOLAX) 5 mg EC tablet Take 2 tablets by mouth right before beginning bowel prep. See instructions provided by the office 2 tablet 05/27/20 25 Active polyethylene glycol (MIRALAX) 17 gram packet Take by mouth 1 (one) time each day. 2 pills daily Active QUEtiapine (SEROquel) 50 mg tablet Take 1 tablet (50 mg total) by mouth 1 (one) time each day in the morning. Active aMILoride (MIDAMOR) 5 mg tablet TAKE ONE-HALF TABLET 2.5MG) BY MOUTH ONCE DAILY. Active amoxicillin (AMOXIL) 500 mg capsule TAKE 4 CAPSULES BY MOUTH ONE HOUR PRIOR TO DENTAL PROCEDURE 01/16/20 25 Active glucosamine lindsey 2KCl-chondroit 500-400 mg tablet Take 1 tablet by mouth 1 (one) time each day. Active scopolamine (TRANSDERM-SCOP) 1 mg over 3 days patch [address] 1 patch on the skin every 72 hours. 12/21/19 25 Active cholecalciferol (VITAMIN D-3) 25 mcg (1,000 unit) tablet Take 1 tablet (1,000 Units total) by mouth 1 (one) time each day. Active glucosamine-chond roit-vit C-Mn (Glucosamine-Danny droitin Complx) capsule Take by mouth. Activ e medical supply, miscellaneous (MISCELLANEOUS MEDICAL SUPPLY MISC) CPAP 07/14/20 18 Active Active Problems Problem Noted Date Diagnosed Date HTN (hypertension) 03/29/2025 Malignant neoplasm of breast (CMS/HCC V24, CMS/H CC V28) 03/29/2025 RBBB 03/29/2025 Adenomatous polyp of colon 03/29/2025 Gastroesophageal reflux disease without esophagi tis 10/14/2024 Other constipation 10/14/2024 Gallstones 10/14/2024 Hx of colonic polyps 10/14/2024 Primary hypothyroidism 08/29/2022 Obstructive sleep apnea syndrome 03/28/2022 Encounters Date Type Department Care Team Description 06/14/2025 Telephone Gastroenterology - [address] [facility] [address] [place] [phone] Yamila [place] 06/10/2025 2:35 PM EDT Anesthesia Event [facility] Endoscopy [address] [place] [phone] David Soriano MD Gomes, Sheldon B, MD 06/10/2025 1:44 PM EDT - 06/10/2025 11:59 PM EDT Hospital Encounter [facility] [address] [place] [address] Nettie Burgos MD Dasilva, John E, MD Hx of colonic polyps Discharge Disposition: Home or Self Care from Last 3 Months Surgical History Surgery Date Site/Laterality Comments TOTAL KNEE ARTHROPLASTY COLONOSCOPY 02/13/2022 fair prep, TAx1 COLONOSCOPY 07/30/2018 fair prep, TAx1 COLONOSCOPY 05/08/2015 COLONOSCOPY 12/14/2009 ESOPHAGOGASTRODUODENOSCOPY 12/14/2009 TOTAL KNEE ARTHROPLASTY Right BREAST LUMPECTOMY Left Medical History Medical History Date Comments Hypertension Hyperlipidemia CKD (chronic kidney disease) Hypothyroid Hypoparathyroidism ([facility] V24) Sleep apnea Family History Medical History Relation Name Comments Colon cancer Neg Hx Colon polyps Neg Hx Social History Tobacco Use Types Packs/Day Years Used Date Smoking Tobacco: Former Smokeless Tobacco: Former Tobacco Cessation:Counseling Given: Not Answered Alcohol Use Standard Drinks/Week Comments Not Currently 0 (1 standard drink = 0.6 oz pur e alcohol) Interpersonal Safety Answer Date Record ed Physical Abuse 06/10/2025 Verbal Abuse 06/10/2025 Comments No Sex and Gender Information Value Date Recorded Sex Assigned at Female 10/15/2024 6:53 PM EST Legal Sex Female 3:53 PM EST Gender Identity Female 10/15/2024 6:53 PM EST Sexual Orientation Not on file Obstetrics History Last Filed Vital Signs Vital Sign Reading Time Taken Comments Blood Pressure 98/69 06/10/2025 3:25 PM EDT Pulse 69 06/10/2025 3:25 PM EDT Temperature 36.8 C (98.2 F) 06/10/2025 3:14 PM EDT Respiratory Rate 16 06/10/2025 3:25 PM EDT Oxygen Saturation 100% 06/10/2025 3:25 PM EDT Inhaled Oxygen Concentration - - Weight 90.7 kg (200 lb) 06/10/2025 2:07 PM EDT Height 165.1 cm (5' 5 ) 06/10/2025 2:07 PM EDT Body Mass Index 33.28 06/10/2025 2:07 PM EDT Plan of Treatment Health Maintenance Due Date Last Done Comments Breast Cancer Screening 1955 Hepatitis A Vaccines (1 of 2 - Risk 2-dose series) 1975 Hepatitis B Vaccines (1 of 3 - Risk 3-dose series) 2016 RSV Immunization Adult Patients (1 - Risk 60-74 years 1-dose series) 2016 Cholesterol Screening (Lipid Panel) 10/02/2022 Hepatitis C Screening 10/02/2022 Medicare Annual Wellness Visit 10/02/2022 Osteoporosis Screening (Bone Density Screening) 10/02/2022 Social Influencers of Health Screening 10/02/2022 Depression Screening 11/03/2024 Hypertension/CHF/CAD Annual BMP Blood Test 03/04/2025 03/04/2024 COVID-19 Vaccine ( season) 2025 09/30/2023, 09/24/2022, 08/30/2021, Additional history exists Influenza Vaccine (#1) 2025 , 08/27/2023, 11/29/2021, Additional history exists Falls Risk Assessment 06/10/2026 06/10/2025 Colorectal Cancer Screening: Colonoscopy 06/10/2030 06/10/2025, 05/20/2025 DTaP,Tdap,and Td Vaccines (2 - Td or Tdap) 08/21/2030 08/21/2020 Zoster Vaccines Completed 07/04/2022, 03/05, 07/10/2016 Pneumococcal Vaccine: 50+ Years Completed 09/07/2024, 11/29/2021 [...] age to complete this topic Meningococcal B Vaccine Aged Out No l onger eligible based on patient's age to complete this topic RSV Immunization Patients Under 20 months Aged Out No longer eligible based on patient's age to complete this topic Varicella Vaccines Aged Out No longer eligible based on patient's age to complete this topic Procedures Procedure Name Priority Date/Time Associated Diagnosis Comments COLONOSCOPY Routine 06/10/2025 3:04 PM EDT Hx of colonic polyps TISSUE EXAM Routine 06/10/2025 2:55 PM EDT Hx of colonic polyps EXTERNAL COLONOSCOPY REPORT Routine 05/20/2025 8:35 AM EDT from Last 3 Months Results * COLONOSCOPY Anesthesia - [facility] [place] [place]; [facility] END[facility]COPY (06/10/2025 3:04 PM EDT) Anatomical Region Laterality Modality Other 06/10/2025 2:39 PM EDT Impressions 06/10/2025 3:08 PM EDT - The examined portion of the ileum was normal. - Two 2 to 3 mm polyps in the transverse colon, removed with a cold snare. Resected and retrieved. - Diverticulosis in the sigmoid colon and in the descending colon. - Medium-sized lipoma in the ascending colon. - Internal hemorrhoids. Recommendation: - Await pathology results. - Repeat colonoscopy for surveillance based on pathology results. Narrative 06/10/2025 3:08 PM EDT [facility] GI Patient Name: Lachelle Mckeon Procedure Date: 06/10/2025 2:39 PM Date of : 1955 Age: 70 Gender: Female Note Status: Finalized Attending MD: Nettie Burgos MD, Procedure Date No Time: 06/10/2025 Procedure: Colonoscopy Indications: High risk colon cancer surveillance: Personal history of non-advanced adenoma Providers: Nettie Burgos MD Referring MD: CARL Avilez Medicines: Propofol per Anesthesia Complications: No immediate complications. Estimated Blood Loss: Estimated blood loss: none. Procedure: Pre-Anesthesia Assessment: - ASA Grade Assessment: III - A patient with severe systemic disease. After I obtained informed consent, the scope was passed under direct vision. Throughout the procedure, the patient's blood pressure, pulse, and oxygen saturations were monitored continuously.The Colonoscope was introduced through the anus and advanced to the terminal ileum. The patient tolerated the procedure well. The quality of the bowel preparation was good. The colonoscopy was somewhat difficult due to a redundant colon. Findings: The perianal and digital rectal examinations were normal. The terminal ileum appeared normal. Two sessile polyps were found in the transverse colon. The polyps were 2 to 3 mm in size. These polyps were removed with a cold snare. Resection and retrieval were complete. Multiple small-mouthed diverticula were found in the sigmoid colon and descending colon. There was a medium-sized lipoma, in the ascending colon. Internal hemorrhoids were found during retroflexion. The hemorrhoids were Grade I (internal hemorrhoids that do not prolapse). Procedure Code(s): --- Professional --- 86402, Colonoscopy, flexible; with removal of tumor(s), polyp(s), or other lesion(s) by snare technique Diagnosis Code(s): --- Professional --- Z86.010, Personal history of colonic polyps D12.3, Benign neoplasm of transverse colon (hepatic flexure or splenic flexure) CPT copyright 2020 [employer]. All rights reserved. The codes documented in this report are preliminary and upon computer language coder review may be revised to meet current compliance requirements. Nettie Burgos MD 06/10/2025 3:08:18 PM This report has been signed electronically.Nettie Burgos MD Number of Addenda: 0 Note Initiated On: 06/10/2025 2:39 PM Scope In: Scope Out: Endoscopy Department at [facility] - [address] [place] [id number] Procedure Note Nettie Burgos MD - 06/10/2025 [facility] GI Patient Name: Lachelle Mckeon Procedure Date: 06/10/2025 2:39 PM Date of : 1955 Age: 70 Gender: Female Note Status: Finalized Attending MD: Nettie Burgos MD, Procedure Date No Time: 06/10/2025 Procedure: Colonoscopy Indications: High risk colon cancer surveillance: Personalhistory of non-advanced adenoma Providers: Nettie Burgos MD Referring MD: CARL Avilez Medicines: Propofol per Anesthesia Complications: No immediate complications. Estimated Blood Loss: Estimated blood loss: none. Procedure: Pre-Anesthesia Assessment: - ASA Grade Assessment: III - A patient with severe systemic disease. After I obtained informed consent, the scope was passed under direct vision. Throughout theprocedure, the patient's blood pressure, pulse, and oxygen saturations were monitored continuously.The Colonoscope was introduced through the anus and advanced to the terminal ileum. The patienttolerated the procedure well. The quality of the bowel preparation was good. The colonoscopy was somewhat difficult due to a redundant colon. Findings: The perianal and digital rectal examinations were normal. The terminal ileum appeared normal. Two sessile polyps were found in the transversecolon. The polyps were 2 to 3 mm in size. These polypswere removed with a cold snare. Resection and retrieval were complete. Multiple small-mouthed diverticula were found inthe sigmoid colon and descending colon. There was a medium-sized lipoma, in the ascending colon. Internal hemorrhoids were found duringretroflexion. The hemorrhoids were Grade I (internal hemorrhoids that do not prolapse). Procedure Code(s): --- Professional --- 34829, Colonoscopy, flexible; with removal of tumor(s), polyp(s), or other lesion(s) by snare technique Diagnosis Code(s): --- Professional --- Z86.010, Personal history of colonic polyps D12.3, Benign neoplasm of transverse colon (hepatic flexure or splenic flexure) CPT copyright 2020 [employer]. All rights reserved. The codes documented in this report are preliminary and upon computer language coder reviewmay be revised to meet current compliance requirements. Nettie Burgos MD 06/10/2025 3:08:18 PM This report has been signed electronically.Nettie Burgos MD Number of Addenda: 0 Note Initiated On: 06/10/2025 2:39 PM Scope In: Scope Out: Endoscopy Department at [facility] - [address] [place] [phone] IMPRESSION: - The examined portion of the ileum was normal. - Two 2 to 3 mm polyps in the transverse colon, removed with a cold snare. Resected andretrieved. - Diverticulosis in the sigmoid colon and in the descending colon. - Medium-sized lipoma in the ascending colon. - Internal hemorrhoids. Recommendation: - Await pathology results. - Repeat colonoscopy for surveillance based on pathology results. us Nettie Burgos MD GI~PROCEDURE ORDERABLES Final Result * Tissue exam (06/10/2025 2:55 PM EDT) Final Diagnosis Transverse Colon, polyps x 2: Tubular adenoma(s) two of three fragments. 06/13/2025 11:54 AM EDT [facility] Gross Description A. Large Intestine, Transverse Colon, polyp x2: Labeled trans colon polyp x 2 . Received in formalin, are three irregular soft to rubbery, adamson-pink to red, polypoid tissue fragments, approximately ranging from 0.2 cm to 0.5 cm in greatest diameters, inked green at the margin, admixed with fecal/food debris. The specimen is wrapped in paper and submitted in toto in one cassette, three pieces, multiple levels. Please note: Small tissue fragments may not survive processing. hs/DG 06/13/2025 11:54 AM EDT [facility] Disclaimer Unless otherwise specified, all tissue is 10% NB formalin fixed and paraffin embedded. 06/13/2025 11:54 AM EDT [facility] ([facility] Tissue Transverse colon structure / Unknown 06/10/2025 2:55 PM EDT 06/10/2025 4:09 PM EDT Nettie Burgos MD LAB PATHOLOGY ORDERABLES Final Result [facility] ([facility] [address] [place] [address], * External Colonoscopy Report (05/20/2025 8:35 AM EDT) Anatomical Region Laterality Modality Endoscopy Historical Provider GI~PROCEDURE ORDERABLES F inal Result from Last 3 Months Insurance MEDICARE [facility] Care Teams Bundle Tier Relationship Specialty Start Date End Date Melia Musa PA [address] [place] [phone] PCP - General Physician Janitorial Supervisor 05/30/25
--- OUTSIDE RECORDS SUMMARY | 2025-07-15 12:14 | XMS_ITS | Encounter Summary ---
Author Organization [facility] Address [address] [place] [address] Care Team Providers Care Supervisor [place] Name Role Phone Pcp, No Primary Care Provider Unavailabl Melia Maddox PA-C Primary Care Provi nixon Dirk Hope MD Unavailable Alejandra Coley MD Unavailable Paul Kumar MD Unavailable Unavailable Encounter Details Date Type Department Care Team (Late st Contact Info) Description 02/17/2024 Scanned Document [facility] ENDOCRINOLOGY SCAN Endocrinology, Scan Social History [...] PM EDT documented as of this encounter Functional Status * Question Answer Date of Assessment Author Feeling nervous, anxious, or on edge 2 02/19/2024 3:02 PM EDT Allyson Nicole MA Not being able to stop or control worrying 1 02/19/2024 3:02 PM EDT Allyson Nicole MA Worrying too much about different things 0 02/19/2024 3:02 PM EDT Allyson Nicole MA Trouble relaxing 1 02/19/2024 3:02 PM EDT Allyson Pineda MA Being so restless that it is hard to sit still 0 02/19/2024 3:02 PM EDT Allyson Nicole MA Becoming easily annoyed or irritable 3 02/19/2024 3:02 PM EDT Allyson Nicole MA Feeling afraid as if somethi ng awful might happen 0 02/19/2024 3:02 PM EDT Allyson Nicole MA * Over the past 2 weeks, how often have you been bothered by any of the following problems? Question Answer Date of Assessment Author Patient Health Questionnaire -2 Score 2 02/19/2024 3:00 PM EDT Allyson Nicole MA * Question Answer Date of Assessment Author Patient Health Questionnaire -9 Score 11 02/19/2024 3:00 PM EDT Allyson Nicole MA * Over the last 2 weeks, how often have you been bothered by any of the following problems? Question Answer Date of Assessment Author JUSTIN-7 Total Score 7 02/19/2024 3:02 PM EDT Allyson Nicole MA * Question Answer Date of Assessment Author Little interest or pleasure in doing things Not at all 02/19/2024 3:00 PM EDT Allyson Nicole MA Feeling down, depressed, or hopeless More than half the days 02/19/2024 3:00 PM EDT Allyson Nicole MA Trouble falling or staying asleep, or sleeping too much Not at all 02/19/2024 3:00 PM EDT Allyson Nicole MA Feeling tired or having little energy More than half the days 02/19/2024 3:00 PM EDT Allyson Nicole MA Poor appetite or overeating Nearly every day 02/19/2024 3:00 PM DAIJAT Allyson Nicole MA Feeling bad about yourself - or that you are a failure or have let yourself or your family down Several days 02/19/2024 3:00 PM DAIJAT Allyson Nicole MA Trouble concentrating on things, such as reading the newspaper or watching television Nearly every day 02/19/2024 3:00 PM EDT Allyson Nicole MA Moving or speaking so slowly that other people could have noticed? Or the opposite - being so fidgety or restless that you have been moving around a lot more than usual. Not at all 02/19/2024 3:00 PM EDT Allyson Nicole MA Thoughts that you would be better off or hurting yourself in some way Not at all 02/19/2024 3:00 PM EDT Allyson Nicole MA How difficult have these problems made it for you to do your work, take care of things at home, or get along with other people? Somewhat difficult 02/19/2024 3:00 PM EDT Allyson Nicole MA documented as of this encounter Plan of Treatment Upcoming Encounters Date Type Department Care Team (Late st Contact Info) Description 10/31/2025 9:30 AM EST Office Visit [facility] [address] [facility] [address] [place] [phone] Melia Musa PA-C [address] [place] [address] 11/10/2025 1:00 PM EST Office Visit [facility] Medical Weight Loss [place] [address] [facility] [address] [place] [phone] Samantha Lehman APRN 7 [facility] [address] [place] [phone] documented as of this encounter Visit Diagnoses Not on filedocumented in this encounter Care Teams Supervisor [place] Relationship Specialty Start Date End Date Pcp, No PCP - General General Medicine 11/19/23 02/17/24 Melia Musa PA-C [address] [place] [address] PCP - General Internal Medicine 02/18/24 Dirk Hope MD [address] [place] [address] Physician Nephrology 02/18/24 Alejandra Coley MD [address] [place] [address] Referring Provider 02/18/[address] [facility] [place] [address] Referring Provider Gastroenterology 02/18/24 Inocencio Patino Physician Endocrinology 02/03/24 Yolanda Tinsley Nurse Practitioner Breast Surgery-Scan 02/02/24 documented as of this encounter
--- OUTSIDE RECORDS SUMMARY | 2025-07-15 12:14 | XMS_ITS | Encounter Summary ---
Author Organization [facility] Address [address] [place] [phone] Phone Care Team Providers Care Supervisor Building Maintenance Name Role Phone Melia Musa PA-C Primary Care Provi [facility] Encounter Details Date Type Department Care Team (Late st Contact Info) Description 12/13/2024 Procedure Pass [facility] Echocardiography [address] [place] [address] Social History Tobacco Use Types Packs/Day Years [...] Orientation Straight 04/15/2024 3: 45 PM EDT documented as of this encounter Plan of Treatment Not on file documented as of this encounter Visit Diagnoses Not on filedocumented in this encounter Care Teams Supervisor Building Maintenance Relationship Specialty Start Date End Date Melia Musa PA-C PCP - General Physician Seaman Officer 04/13/24 documented as of this encounter Additional Source Comments The information contained in this document represents components of the legal health record. It is not the complete legal health record.[facility]
--- OUTSIDE RECORDS SUMMARY | 2025-07-15 12:14 | XMS_ITS | Encounter Summary ---
Author Organization [facility] Address [address] [place] [address] Care Team Providers Care Pilot Control Operator Helper Name Role Phone Melia Musa PA-C Primary Care Provi nixon Dirk Hope MD Unavailable Alejandra Coley MD Unavailable Paul Kumar MD Unavailable Unavailable Encounter Details Date Type Department Care Team (Late st Contact Info) Description 07/13/2025 Scanned Document [facility] [address] [place] [address] Pulmonary, Scan Social History Tobacco Use Types Packs/Day Years Used Date Smoking Tobacco: Former Cigarettes Smokeless Tobacco: Never Alcohol Use Standard Drinks/Week Comments Not Currently 0 (1 standard drink = 0.6 oz pur e alcohol) [facility] Utilities Answer Date Recorded In the past 12 months has [employer], gas, oil, or water [employer] threatened to shut off services in your home? No 03/28/2025 Social Connection and Isolat ion Panel [NHANES] Answer Date Recorded In a typical week, how many times do you talk on the phone with family, friends, or neighbors? More than three times a week 03/28/2025 Frequency of Social Gatherin gs with Friends and Family Not on file 03/28/2025 Attends Anglican Services Not on file 03/28 Active Member of Clubs or Organizations Not on f ile 03/28/2025 Attends Club or Organization Meetings Not on calixto e 03/28/2025 Marital Status Not on file 03/28/2025 AUDIT-C Answer Date Recorded Q1: How often do you have a drink containing alc ohol? Never 03/28/2025 Average Number of Drinks Not on file 025 Frequency of Binge Drinking Not on file 03/04 PHQ-2 Answer Date Recorded PHQ-2 Total Score 0 09/05/2024 [facility] - Occupational Stress Questionnaire Answer Date Recorded Do you feel stress - tense, restless, nervous, or anxious, or unable to sleep at night because your mind is troubled all the time - these days? To some extent 06/09/2025 Hunger Vital Sign Answer Date Recorded Within the past 12 months, y ou worried that your food would run out before you got the money to buy more. Never true 03/28/20 25 Within the past 12 months, t he food you bought just didn't last and you didn't have money to get more. Never true 03/28/2025 PRAPARE - Transportation Answer Date Re corded In the past 12 months, has l ack of transportation kept you from medical appointments or from getting medications? No 03/04 In the past 12 months, has l ack of transportation kept you from meetings, work, or from getting things needed for daily living? No 03/28/2025 Housing Stability Vital Sign Answer Konstantin e Recorded In the last 12 months, was t here a time when you were not able to pay the mortgage or rent on time? No 03/28/2025 In the past 12 months, how m any times have you moved where you were living? 0 03/28/2025 At any time in the past 12 m [facility], were you homeless or living in a snf (including now)? No 03/28/2025 Physical Activity Answer Date Recorded On average, how many days pe r week do you engage in moderate to strenuous exercise (like a brisk walk)? 0 days 06/09/2025 On average, how many minutes do you exercise per day at this level? 0 min 06/09/2025 Education Answer Date Recorded What is the [...] Description 10/31/2025 9:30 AM EST Office Visit [facility] [address] [place] [phone] Melia Musa PA-C [address] [place] [address] 11/10/2025 1:00 PM EST Office Visit [facility] [place] [address] [place] [phone] Samantha Lehman, DIGITAL ASSET MANAGER 7 [facility] [address] [place] [address] documented as of this encounter Visit Diagnoses Not on filedocumented in this encounter Care Teams Pilot Control Operator Helper Relationship Specialty Start Date End Date Melia Musa PA-C [address] [place] [address] PCP - General Internal Medicine 02/18/24 Dirk Hope MD [address] [place] [address] Physician Nephrology 02/18/24 Alejandra Coley MD [address] [place] [address] Referring Provider 02/18/24 Paul Kumar MD [address] [place] [address] Referring Provider Gastroenterology 02/18/24 Inocencio Patino Physician Endocrinology 02/03/24 Yolanda Tinsley Nurse Practitioner Breast Surgery-Scan 02/02/24 documented as of this encounter
--- OUTSIDE RECORDS SUMMARY | 2025-07-15 12:14 | XMS_ITS | Clinical Summary ---
Author Organization [facility] Address [address] [facility] [address] [place] [address] Phone Care Team Providers Care Folded Cloth Taper Name Role Phone Yakov Caceres MD Primary Care Provider [phone] Allergies Active Allergy Reactions Criticality Noted Date [...] Comments Breast Cancer Screening 1956 Pneumococcal Vaccine: 50+ Ye ars (1 of 2 - PCV) 1975 Colorectal Cancer Screening: Annual FOBT 2005 Colorectal Cancer Screening: Colonoscopy 2005 Colorectal Cancer Screening: Sigmoidoscopy 2005 Influenza Vaccine (#1) 2025 Hepatitis B Vaccine Aged Out No longe r eligible based on patient's age to complete this topic [place] [address] Medicare [facility] Medicare Care Teams Folded Cloth Taper Relationship Specialty Start Date End Date Yakov Caceres MD [employer] [address] [place] [address] [address] [place] [address] PCP - General Internal Medicine 01/22/21
--- OUTSIDE RECORDS SUMMARY | 2025-07-15 12:14 | XMS_ITS | Encounter Summary ---
Author Organization [facility] Address [address] [place] [address] Care Team Providers Care Plumbing Engineer Name Role Phone Melia Musa PA-C Primary Care Provi nixon Dirk Hope MD Unavailable Alejandra Coley MD Unavailable Paul Kumar MD Unavailable Unavailable Encounter Details Date Type Department Care Team (Late st Contact Info) Description 02/20/2024 Scanned Document [address] [address] Primary Care, Scan Social History Tobacco [...] Description 10/31/2025 9:30 AM EST Office Visit [address] [place] [phone] Melia Musa PA-C [address] [place] [address] 11/10/2025 1:00 PM EST Office Visit [facility] [place] [address] [place] [address] Samantha Lehman, AUGER MILL OPERATOR [address] [facility] [facility] [address] [place] [address] documented as of this encounter Visit Diagnoses Not on filedocumented in this encounter Care Teams Plumbing Engineer Relationship Specialty Start Date End Date Melai Musa PA-C [address] [place] [address] PCP - General Internal Medicine 02/18/24 Dirk Hope MD [address] [place] [address] Physician Nephrology 02/18/24 Alejandra Coley MD [address] [place] [address] Referring Provider 02/18/24 Paul Kumar MD [address] [place] [address] Referring Provider Gastroenterology 02/18/24 Inocencio Patino Physician Endocrinology 02/03/24 Yolanda Tinsley Nurse Practitioner Breast Surgery-Scan 02/02/24 documented as of this encounter
--- OUTSIDE RECORDS SUMMARY | 2025-07-15 12:14 | XMS_ITS | Encounter Summary ---
Author Organization [facility] Address [address] [place] [address] Care Team Providers Care Leather Stripping Machine Operator Name Role Phone Melia Musa PA-C Primary Care Provi nixon Dirk Hope MD Unavailable Alejandra Coley MD Unavailable Paul Kumar MD Unavailable Unavailable Encounter Details Date Type Department Care Team (Late st Contact Info) Description 04/05/2025 Scanned Document [facility] [address] [place] [address] Pulmonary, Scan Social History Tobacco Use Types Packs/Day Years Used Date Smoking Tobacco: Former Cigarettes Smokeless Tobacco: Never Alcohol Use Standard Drinks/Week Comments Not Currently 0 (1 standard drink = 0.6 oz pur e alcohol) [facility] Utilities Answer Date Recorded In the past 12 months has e [employer], gas, oil, or water company threatened to [...] and Family Not on file 03/28/2025 Attends Mormonism Services Not on file 03/28 Active Member [...] Date Recorded PHQ-2 Total Score 0 09/05/2024 [facility] - Occupational Stress Questionnaire Answer Date Recorded Do you feel stress - tense, restless, nervous, or anxious, or unable to sleep at night because your mind is troubled all the time - these days? To some extent 01/17/2025 Hunger Vital Sign Answer Date Recorded Within [...] any time in the past 12 m [facility], were you homeless or living in a skilled nursing (including now)? No 03/28/2025 Physical Activity Answer Date Recorded On average, how many days pe r week do you engage in moderate to strenuous exercise (like a brisk walk)? 5 days 01/17/2025 On average, how many minutes do you exercise per day at this level? 60 min 01/17/2025 Education Answer Date Recorded What is the [...] Description 10/31/2025 9:30 AM EST Office Visit [facility] [address] [place] [address] Melia Musa PA-C [address] [place] [address] 11/10/2025 1:00 PM EST Office [facility] [place] [address] [place] [phone] Samantha Lehman, BLOCKING MACHINE OPERATOR 7 [facility] [address] [place] [address] documented as of this encounter Visit Diagnoses Not on filedocumented in this encounter Care Teams Leather Stripping Machine Operator Relationship Specialty Start Date End Date Melia Musa PA-C [address] [place] [address] PCP - General Internal Medicine 02/18/24 Dirk Hope MD [address] [place] [address] Physician Nephrology 02/18/24 Alejandra Coley MD [address] [place] [address] Referring Provider 02/18/24 Paul Kumar MD [address] [place] [address] Referring Provider Gastroenterology 02/18/24 Inocencio Patino Physician Endocrinology 02/03/24 Yolanda Tinsley Nurse Practitioner Breast Surgery-Scan 02/02/24 documented as of this encounter
--- OUTSIDE RECORDS SUMMARY | 2025-07-15 12:14 | XMS_ITS | Encounter Summary ---
Author Organization [facility] Address [address] [place] [address] Phone Care Team Providers Care Nitrating Acid Mixer Name Role Phone Melia Musa PA-C Primary Care Provi [facility] Encounter Details Date Type Department Care Team (Late st Contact Info) Description 12/13/2024 Procedure Pass [facility] [address] [place] [address] Social History Tobacco Use Types Packs/Day Years [...] on filedocumented in this encounter Care Teams Nitrating Acid Mixer Relationship Specialty Start Date End Date Melia Musa PA-C PCP - General Physician Sheet Heater 04/13/24 documented as of this encounter Additional Source Comments The information contained in this document represents components of the legal health record. It is not the complete legal health record.[facility]
--- OUTSIDE RECORDS SUMMARY | 2025-07-15 12:14 | XMS_ITS | Encounter Summary ---
Author Organization [facility] Address [address] [place] [address] Care Team Providers Care Boiler Shop Supervisor Name Role Phone Melia Musa PA-C Primary Care Provi nixon Dirk Hope MD Unavailable Alejandra Coley MD Unavailable Paul Kumar MD Unavailable Unavailable Encounter Details Date Type Department Care Team (Late st Contact Info) Description 08/11/2024 Scanned Document [facility] ENDOCRIN[facility] Inocencio Owusu MD [address] [place] [address] [place] [address] Social History Tobacco Use Types Packs/Day Years [...] Description 10/31/2025 9:30 AM EST Office Visit [address] [place] [phone] Melia Musa PA-C [address] [place] [address] 11/10/2025 1:00 PM EST Office Visit [facility] [place] [address] [place] [phone] Samantha Lehman, STORY ANALYST [address] [place] [address] documented as of this encounter Visit Diagnoses Not on filedocumented in this encounter Care Teams Boiler Shop Supervisor Relationship Specialty Start Date End Date Melia Musa PA-C [address] [place] [address] PCP - General Internal Medicine 02/18/24 Dirk Hope MD [address] [place] [address] Physician Nephrology 02/18/24 Alejandra Coley MD [address] [place] [address] Referring Provider 02/18/24 Paul Kumar MD [facility] [place] [address] Referring Provider Gastroenterology 02/18/24 Inocencio Patino Physician Endocrinology 02/03/24 Yolanda Tinsley Nurse Practitioner Breast Surgery-Scan 02/02/24 documented as of this encounter
--- OUTSIDE RECORDS SUMMARY | 2025-07-15 12:14 | XMS_ITS | Encounter Summary ---
Author Organization [facility] Address [address] [place] [address] Care Team Providers Care Machine Shop Helper Name Role Phone Melia Musa PA-C Primary Care Provi nixon Dirk Hope MD Unavailable Alejandra Coley MD Unavailable Paul Kumar MD Unavailable Unavailable Encounter Details Date Type Department Care Team (Late st Contact Info) Description 06/01/2025 Scanned Document [facility] [address] [place] [address] Pulmonary, Scan Social History Tobacco Use Types Packs/Day Years Used Date Smoking Tobacco: Former Cigarettes Smokeless Tobacco: Never Alcohol Use Standard Drinks/Week Comments Not Currently 0 (1 standard drink = 0.6 oz pur e alcohol) [facility] Utilities Answer Date Recorded In the past 12 months has e [employer], gas, oil, or water company threatened to [...] and Family Not on file 03/28/2025 Attends Baptism Services Not on file 03/28 Active Member [...] Date Recorded PHQ-2 Total Score 0 09/05/2024 [facility] - Occupational Stress Questionnaire Answer Date [...] any time in the past 12 m [facility], were you homeless or living in a chcf (including now)? No 03/28/2025 Physical Activity Answer [...] Description 10/31/2025 9:30 AM EST Office Visit [facility] [address] [place] [address] Melia Musa PA-C [address] [place] [address] 11/10/2025 1:00 PM EST Office Visit [facility] [place] [address] [place] [phone] Samantha Lehman, MEDICAL RECORDS MANAGER 7 [facility] [address] [place] [address] documented as of this encounter Visit Diagnoses Not on filedocumented in this encounter Care Teams Machine Shop Helper Relationship Specialty Start Date End Date Melia Musa PA-C [address] [place] [address] PCP - General Internal Medicine 02/18/24 Dirk Hope MD [address] [place] [address] Physician Nephrology 02/18/24 Alejandra Coley MD [address] [place] [address] Referring Provider 02/18/24 Paul Kumar MD [address] [place] [address] Referring Provider Gastroenterology 02/18/24 Inocencio Patino Physician Endocrinology 02/03/24 Yolanda Tinsley Nurse Practitioner Breast Surgery-Scan 02/02/24 documented as of this encounter
--- OUTSIDE RECORDS SUMMARY | 2025-07-15 12:14 | XMS_ITS | Encounter Summary ---
Author Organization [facility] Address [address] [place] [address] Care Team Providers Care Operations Officer Name Role Phone Melia Musa PA-C Primary Care Provi nixon Dirk Hope MD Unavailable Alejandra Coley MD Unavailable Paul Kumar MD Unavailable Unavailable Encounter Details Date Type Department Care Team (Late st Contact Info) Description 07/08/2025 Orders Only [facility] [address] [place] [address] Pulmonary, Scan Social History Tobacco Use Types Packs/Day Years Used Date Smoking Tobacco: Former Cigarettes Smokeless Tobacco: Never Alcohol Use Standard Drinks/Week Comments Not Currently 0 (1 standard drink = 0.6 oz pur e alcohol) [facility] Utilities Answer Date Recorded In the past 12 months has [employer], gas, oil, or water [employer] threatened to shut off services in your home? No 03/28/2025 Social Connection and Isolat ion Panel [NHANES] Answer Date Recorded In a typical week, how many times do you talk on the phone with family, friends, or neighbors? More than three times a week 03/28/2025 Frequency of Social Gatherin gs with Friends and Family Not on file 03/28/2025 Attends [employer] Services Not on file 03/28 Active Member [...] Date Recorded PHQ-2 Total Score 0 09/05/2024 [facility] - Occupational Stress Questionnaire Answer Date [...] any time in the past 12 m [facility], were you homeless or living in a fdc (including now)? No 03/28/2025 Physical Activity Answer [...] Description 10/31/2025 9:30 AM EST Office Visit [facility] [address] [place] [address] Melia Musa PA-C [address] [facility] [address] 11/10/2025 1:00 PM EST Office Visit [facility] [place] [address] [place] [phone] Samantha Lehman, JAILKEEPER [address] [place] [address] documented as of this encounter Procedures Procedure Name Priority Date/Time Associated Diagnosis Comments PULMONARY SLEEP STUDY Routine 07/02/2025 10:37 AM EDT documented in this encounter Results * PULMONARY SLEEP STUDY (07/02/2025 10:37 AM EDT) us Scan Pulmonary HX AMB PROCEDURES Edited Result - Final documented in this encounter Visit Diagnoses Not on filedocumented in this encounter Care Teams Operations Officer Relationship Specialty Start Date End Date Melia Musa PA-C [address] [facility] [address] PCP - General Internal Medicine 02/18/24 Dirk Hope MD [address] [facility] [address] Physician Nephrology 02/18/24 Alejandra Coley MD [address] [place] [address] Referring Provider 02/18/24 Paul Kumar MD [address] [place] [address] Referring Provider Gastroenterology 02/18/24 Inocencio Patino Physician Endocrinology 02/03/24 Yolanda Tinsley Nurse Practitioner Breast Surgery-Scan 02/02/24 documented as of this encounter
--- OUTSIDE RECORDS SUMMARY | 2025-07-15 12:15 | XMS_ITS | Clinical Summary ---
Author Organization [facility] Address [address] [place] [address] Care Team Providers Care Assessment Services Manager Name Role Phone Melia Musa PA-C Primary Care Provi nixon Dirk Hope MD Unavailable Alejandra Coley MD Unavailable Paul Kumar MD Unavailable Unavailable Allergies No known active allergies Medications aspirin enteric coated (ECOTRIN LOW STRENGTH) 81 MG EC tablet Take 1 tablet (81 mg total) by mouth daily. Active Cholecalciferol 25 MCG (1000 UT) Tablet Dispersible Take 1 tablet by mouth daily. Active QUEtiapine (SEROquel) 50 MG tablet Take 3 tablets (150 mg total) by mouth nightly. 4 Active Gemtesa 75 MG tablet Take 1 tablet (75 mg total) by mouth daily. 4 Active multivitamin Tab tablet Take 1 tablet by mouth daily. Active glucosamine chondroitin complex (OSTEO BI-FLEX) Tab tablet Take by mouth. Active carBAMazepine (TEGretol XR) 400 MG 12 hr tablet Take 1 tablet (400 mg total) by mouth 2 times a day. 400mg in am and 600mg in pm 4 Active aMILoride (MIDAMOR) 5 MG tabletIndications: Primary hypertension TAKE ONE-HALF TABLET (2.5MG) BY MOUTH ONCE DAILY. 30 tablet 6 4 Active Linzess 290 MCG Cap capsule take 1 capsule by mouth once daily before breakfast Active atorvastatin (LIPITOR) 80 MG tabletIndications: Other hyperlipidemia TAKE ONE TABLET BY MOUTH EVERY DAY 30 tablet 3 Active valsartan (DIOVAN) 40 MG tablet Take 1 tablet (40 mg total) by mouth daily. Active QUEtiapine (SEROquel) 300 MG tablet Take 1 tablet (300 mg total) by mouth nightly. 5 Active Tiadylt ER 240 MG 24 hr capsuleIndications :Primary hypertension TAKE ONE CAPSULE BY MOUTH ONCE DAILY 90 capsule 3 Active levothyroxine (SYNTHROID, LEVOTHROID) 200 MCG tabletIndications: Acquired hypothyroidism TAKE ONE TABLET BY MOUTH ONCE DAILY EXCEPT ON SUNDAYS TAKE 1&1/2 TABLETS. 60 tablet Active tirzepatide (ZEPBOUND) 7.5 mg/0.5 mL pen-injectorIndica tions:Obstructive sleep apnea syndrome Inject 1 Pen (7.5 mg total) under the skin once a week. 2 mL 3 Active Active Problems Problem Noted Date Diagnosed Date History of breast cancer 09/07/2024 Foot pain, bilateral 04/03/2024 History of tobacco use 02/18/2024 IFG (impaired fasting glucose) 02/18/2024 Bipolar 1 disorder 02/18/2024 Assessment & Plan (03/30/2025 12:14 PM EDT): Follows with psych. Stable with medications. Other hyperlipidemia 02/18/2024 Acquired hypothyroidism 02/18/2024 Gastroesophageal reflux disease without esophagi tis 02/18/2024 Primary osteoarthritis of both knees 02/18/2024 History of colon polyps 02/18/2024 Gallstones 02/18/2024 OAB (overactive bladder) 02/18/2024 Fatty liver 02/18/2024 Severe obesity 04/14/2023 02/18/2024 Assessment & Plan (03/30/2025 12:14 PM EDT): Patient has done extremely well with diet and exercise. She is now following with weight management and is on Zepbound and tolerating it quite well. She will continue to keep up the good work. Obstructive sleep apnea syndrome 03/28/2022 02/18/2024 Assessment & Plan (03/30/2025 12:14 PM EDT): Following with sleep medicine. Still needs CPAP. Hypercalcemia 01/22/2021 02/18/2024 Hypertension 01/22/2021 02/18/2024 Assessment & Plan (03/30/2025 12:14 PM EDT): Compliant with blood pressure medications. Blood pressures at goal. Primary hyperparathyroidism 01/22/202102/01 Overview (02/18/2024): Due to lithium Assessment & Plan (03/30/2025 12:14 PM EDT): Following with endocrinology. Stable. 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 History of kidney stones 02/18/202412/2023 Encounters Date Type Department Care Team Description 07/13/2025 Scanned Document [facility] [address] [place] [address] Pulmonary, Scan 07/08/2025 Orders Only [facility] [address] [place] [address] Pulmonary, Scan 06/15/2025 Orders Only [address] [place] [phone] Melia Musa PA-C Otalgia, unspecified laterality (Primary Dx) 06/09/2025 1:00 PM EDT Office Visit [facility] [place] [address] [place] [address] Samantha Lehman, KRISTIN Obesity, Class I, BMI 30-34.9 (Primary Dx); Obstructive sleep apnea syndrome 06/09/2025 Travel 06/01/2025 Scanned Document [facility] [address] [place] [address] Pulmonary, Scan 05/30/2025 Orders Only [facility] [place] [address] [place] [address] Samantha Lehman, KRISTIN Obstructive sleep apnea syndrome (Primary Dx) 05/24/2025 Refill [facility] [place] [address] [place] [address] Samantha Lehman, KRISTIN Obstructive sleep apnea syndrome [facility] [address] [facility] [address] [place] [address] Melia Musa PA-C Acquired hypothyroidism (Primary Dx) 05/09/2025 [facility] [address] [facility] [address] [place] [address] Melia Musa PA-C Primary hypertension from Last 3 Months Immunizations Immunization Administration Dates Next Due Covid-19 mRNA Bivalent [...] drink = 0.6 oz pur e alcohol) [facility] Utilities Answer Date Recorded In the past 12 months has th e [employer], gas, oil, or water company threatened to [...] and Family Not on file 03/28/2025 Attends Cheondoism Services Not on file 03/28 Active Member [...] Date Recorded PHQ-2 Total Score 0 09/05/2024 [facility] of Occupat ional Health - Occupational Stress Questionnaire Answer Date Recorded [...] any time in the past 12 m [facility], were you homeless or living in a jail (including now)? No 03/28/2025 Physical Activity Answer [...] Sign Reading Time Taken Comments Blood Pressure 118/77 06/09/2025 1:06 PM EDT Pulse 73 06/09/2025 1:06 PM EDT Temperature 36.1 C (96.9 F) 03/30/2025 11:19 AM EDT Respiratory Rate 17 03/30/2025 11:19 AM EDT Oxygen Saturation 96% 03/30/2025 11:19 AM EDT Inhaled Oxygen Concentration - - Weight 90.8 kg (200 lb 1.6 oz) 06/09/2025 1:06 P M EDT Height 165.1 cm (5' 5 ) 06/09/2025 1:06 PM EDT Body Mass Index 33.3 06/09/2025 1:06 PM EDT Plan of Treatment Upcoming Encounters Date Type Department Care Team (Late st Contact Info) Description 10/31/2025 9:30 AM EST Office Visit [address] [place] [address] Melia Musa PA-C [address] [place] [address] 11/10/2025 1:00 PM EST Office Visit [facility] [place] [address] [place] [phone] Samantha Lehman, BUSINESS TAXES SPECIALIST [address] [place] [phone] Health Maintenance Due Date Last Done Comments Advance Care Planning 1955 Hepatitis C Virus Screening 1955 Physical 1974 RSV Vaccine 60 years and older and Patients (1 - Risk 60-74 years 1-dose series) 2016 DXA Bone Density (Females,Ages 65 and older) 2021 Colonoscopy 02/13/2025 02/13/2022 (Prev iously Completed) Influenza Vaccine 06/03/2025 08/27/2023 COVID-19 Vaccine ( season) 2025 09/30/2023, 09/30/2023, 09/24/2022, Additional history exists Mammogram 07/24/2025 07/24/2023 (Prev iously Completed) Annual Wellness Visit 09/08/2025 09/07/2024 DTaP/Tdap/Td Vaccines (2 - Td or Tdap) 08/21/2030 08/21/2020 Zoster (Shingles) Vaccine Completed 2021, 04/02/2022, 07/10/2016 Pneumococcal Vaccines 50+ Completed 09/07/2024, Hepatitis B Vaccines Aged Out No long er eligible based on patient's age to complete this topic Procedures Procedure Name Priority Date/Time Associated Diagnosis Comments PULMONARY SLEEP STUDY Routine 07/02/2025 10:37 AM EDT from Last 3 Months Results * PULMONARY SLEEP STUDY (07/02/2025 10:37 AM EDT) us Scan Pulmonary HX AMB PROCEDURES Edited Result - Final from Last 3 Months Insurance [facility] MEDICARE PART A & B Care Teams Assessment Services Manager Relationship Specialty Start Date End Date Melia Musa PA-C [address] [place] [address] PCP - General Internal Medicine 02/18/24 Dirk Hope MD [address] [place] [address] Physician Nephrology 02/18/24 Alejandra Coley MD [address] [place] [address] Referring Provider 02/18/24 Paul Kumar MD [address] [place] [address] Referring Provider Gastroenterology 02/18/24 Inocencio Patino Physician Endocrinology 02/03/24 Yolanda Tinsley Nurse Practitioner Breast Surgery-Scan 02/02/24
--- OUTSIDE RECORDS SUMMARY | 2025-07-15 12:15 | XMS_ITS | Encounter Summary ---
Author Organization [facility] Address [address] [place] [address] Care Team Providers Care Continuity Director Name Role Phone Melia Musa PA-C Primary Care Provi nixon Dirk Hope MD Unavailable Aeljandra Coley MD Unavailable Paul Kumar MD Unavailable Unavailable Encounter Details Date Type Department Care Team (Late st Contact Info) Description 04/21/[address] [phone] Melia Musa PA-C [address] [place] [address] Social History Tobacco Use Types Packs/Day Years [...] Description 10/31/2025 9:30 AM EST Office Visit [facility] [address] [place] [address] Melia Musa PA-C [address] [place] [address] 11/10/2025 1:00 PM EST Office Visit [facility] Medical Weight [facility] [place] [address] [place] [address] Samantha Lehman L, BAG MAKING MACHINE TENDER [facility] [address] [place] [address] documented as of this encounter Visit Diagnoses Not on filedocumented in this encounter Care Teams Continuity Director Relationship Specialty Start Date End Date Melia Musa PA-C [address] [place] [address] PCP - General Internal Medicine 02/18/24 Dirk Hope MD [address] [place] [address] Physician Nephrology 02/18/24 Alejandra Coley MD [address] [place] [address] Referring Provider 02/18/24 Paul Kumar MD [address] [place] [address] Referring Provider Gastroenterology 02/18/24 Inocencio Patino Physician Endocrinology 02/03/24 Yolanda Tinsley Nurse Practitioner Breast Surgery-Scan 02/02/24 documented as of this encounter
--- OUTSIDE RECORDS SUMMARY | 2025-07-15 12:15 | XMS_ITS | Encounter Summary ---
Author Organization [facility] Address [address] [place] [address] Care Team Providers Care Bottle Selector Name Role Phone Melia Musa PA-C Primary Care Provi nixon Dirk Hope MD Unavailable Alejandra Coley MD Unavailable Paul Kumar MD Unavailable Unavailable Encounter Details Date Type Department Care Team (Late st Contact Info) Description 02/23/2025 Scanned Document [facility] [address] [place] [address] Ling Travis MA [address] [place] [address] Social History Tobacco Use Types Packs/Day Years Used Date Smoking Tobacco: Former Cigarettes Smokeless Tobacco: Never Alcohol Use Standard Drinks/Week Comments Yes 0 (1 standard drink = 0.6 oz pur e alcohol) when I go out to dinner [facility] Utilities Answer Date Recorded In the past 12 months has [employer], gas, oil, or water company threatened [...] and Family Not on file 09/05/2024 Attends Restorationist Services Not on file 09/05 Active Member [...] Date Recorded PHQ-2 Total Score 0 09/05/2024 [facility] of Occupat ional [facility] - Occupational Stress Questionnaire Answer Date Recorded [...] any time in the past 12 m [facility], were you homeless or living in a half-way (including now)? No 09/05/2024 Physical Activity Answer Date Recorded On average, [...] Description 10/31/2025 9:30 AM EST Office Visit [facility] [address] [place] [address] Melia Musa PA-C [address] [place] [address] 11/10/2025 1:00 PM EST Office Visit [facility] [place] [address] [place] [phone] Samantha Lehman, CHRONOMETER ASSEMBLER [facility] [place] [address] documented as of this encounter Visit Diagnoses Not on filedocumented in this encounter Care Teams Bottle Selector Relationship Specialty Start Date End Date Melia Musa PA-C [address] [place] [address] PCP - General Internal Medicine 02/18/24 Dirk Hope MD [address] [place] [address] Physician Nephrology 02/18/24 Alejandra Coley MD [address] [place] [address] Referring Provider 02/18/24 Paul Kumar MD [address] [place] [address] [place] [address] Referring Provider Gastroenterology 02/18/24 Inocencio Patino Physician Endocrinology 02/03/24 Yolanda Tinsley Nurse Practitioner Breast Surgery-Scan 02/02/24 documented as of this encounter
--- OUTSIDE RECORDS SUMMARY | 2025-07-15 12:15 | XMS_ITS | Encounter Summary ---
Author Organization [facility] Address [address] [place] [address] Care Team Providers Care Solar Sales Consultant Name Role Phone Melia Musa PA-C Primary Care Provi nixon Dirk Hope MD Unavailable Alejandra Coley MD Unavailable Paul Kumar MD Unavailable Unavailable Reason for Visit * Reason Comments Other Prior Authorization Encounter Details Date Type Department Care Team (Late st Contact Info) Description 11/25/2024 Telephone [facility] [address] [place] [address] Samantha Lehman, BASKETBALL COMMENTATOR 7 [facility] [address] [place] [phone] Other; Prior Authorization Social History Tobacco Use Types Packs/Day Years Used Date Smoking Tobacco: Former Cigarettes Smokeless Tobacco: Never Alcohol Use Standard Drinks/Week Comments Yes 0 (1 standard drink = 0.6 oz pur e alcohol) when I go out to dinner [facility] Utilities Answer Date Recorded In the past 12 months has [email or web address], gas, oil, or water company threatened [...] and Family Not on file 09/05/2024 Attends Gnosticist Services Not on file 09/05 Active Member [...] any time in the past 12 m [facility], were you homeless or living in a chcf (including now)? No 09/05/2024 Education Answer Date [...] EST Office Visit [facility] [address] [place] [phone] Melia Musa PA-C [address] [place] [address] 11/10/2025 1:00 PM EST Office Visit [facility] Medical Weight Loss [place] [address] [place] [phone] Samantha Lehman L, BASKETBALL COMMENTATOR 7 [facility] [address] [place] [phone] documented as of this encounter Visit Diagnoses Not on filedocumented in this encounter Care Teams Solar Sales Consultant Relationship Specialty Start Date End Date Melia Musa PA-C [address] [place] [address] PCP - General Internal Medicine 02/18/24 Dirk Hope MD [address] [place] [address] Physician Nephrology 02/18/24 Alejandra Coley MD [address] [place] [address] Referring Provider 02/18/24 Paul Kumar MD [address] [place] [address] Referring Provider Gastroenterology 02/18/24 Inocencio Patino Physician Endocrinology 02/03/24 Yolanda Tinsley Nurse Practitioner Breast Surgery-Scan 02/02/24 documented as of this encounter
--- OUTSIDE RECORDS SUMMARY | 2025-07-15 12:15 | XMS_ITS | Encounter Summary ---
Author Organization [facility] Address [address] [place] [address] Care Team Providers Care Mutual Fund Analyst Name Role Phone Melia Musa PA-C Primary Care Provi nixon Dirk Hope MD Unavailable Alejandra Coley MD Unavailable Paul Kumar MD Unavailable Unavailable Reason for Visit * Reason Onset Date Comments Medication Refill 03/18/2025 Encounter Details Date Type Department Care Team (Late st Contact Info) Description 03/18/2025 Refill [facility] [place] [address] [place] [address] [place] [phone] Samantha Lehman APRN [facility] [address] [place] [phone] Obstructive sleep apnea syndrome Social History Tobacco Use Types Packs/Day Years Used Date Smoking Tobacco: Former Cigarettes Smokeless Tobacco: Never Alcohol Use Standard Drinks/Week Comments Yes 0 (1 standard drink = 0.6 oz pur e alcohol) when I go out to dinner [facility] Utilities Answer Date Recorded In the past 12 months has [employer], gas, oil, or water company threatened [...] Date Recorded PHQ-2 Total Score 0 09/05/2024 [facility] of Occupat ional Health - Occupational Stress [...] any time in the past 12 m [facility], were you homeless or living in a detention (including now)? No 09/05/2024 Physical Activity Answer [...] 9:30 AM EST Office Visit [facility] [address] [place] [address] Melia Musa PA-C [address] [place] [address] 11/10/2025 1:00 PM EST Office Visit [facility] [place] Medical Weight [facility] [place] [address] [place] [phone] Samantha Lehman APRN [facility] [address] [place] [address] documented as of this encounter Visit Diagnoses Diagnosis Obstructive sleep apnea syndrome Obstructive sleep apnea (adult) (pediatric) documented in this encounter Care Teams Mutual Fund Analyst Relationship Specialty Start Date End Date Melia Musa PA-C [address] [place] [address] PCP - General Internal Medicine 02/18/24 Dirk Hope MD [address] [place] [address] Physician Nephrology 02/18/24 Alejandra Coley MD [address] [place], [place] [phone] Referring Provider 02/18/24 Paul Kumar MD [address] [place] [address] Referring Provider Gastroenterology 02/18/24 Inocencio Patino Physician Endocrinology 02/03/24 Yolanda Tinsley Nurse Practitioner Breast Surgery-Scan 02/02/24 documented as of this encounter
--- OUTSIDE RECORDS SUMMARY | 2025-07-15 12:15 | XMS_ITS | Encounter Summary ---
Author Organization [facility] Address [address] [place] [address] Care Team Providers Care Glass Cleaning Machine Tender Name Role Phone Melia Musa PA-C Primary Care Provi nixon Dirk Hope MD Unavailable Alejandra Coley MD Unavailable Paul Kumar MD Unavailable Unavailable Encounter Details Date Type Department Care Team (Late st Contact Info) Description 02/02/2025 Scanned Document [facility] ON[facility] Hematology And Oncology, Scan Social History Tobacco Use Types Packs/Day Years Used Date Smoking Tobacco: Former Cigarettes Smokeless Tobacco: Never Alcohol Use Standard Drinks/Week Comments Yes 0 (1 standard drink = 0.6 oz pur e alcohol) when I go out to dinner [facility] Utilities Answer Date Recorded In the past 12 months has [employer] electric, gas, oil, or water company threatened [...] and Family Not on file 09/05/2024 Attends Yarsanism Services Not on file 09/05 Active Member [...] Date Recorded PHQ-2 Total Score 0 09/05/2024 [facility] of Occupat ional Health - Occupational Stress [...] any time in the past 12 m [facility], were you homeless or living in a longterm (including now)? No 09/05/2024 Physical Activity Answer [...] 10/31/2025 9:30 AM EST Office Visit [facility] [address] [place] [address] Melia Musa PA-C [address] [place] [address] 11/10/2025 1:00 PM EST Office Visit [facility] Weight [facility] [place] [address] [place] [phone] Samantha Lehman L, TRAINING ADMINISTRATOR [facility] [address] [place] [address] documented as of this encounter Visit Diagnoses Not on filedocumented in this encounter Care Teams Glass Cleaning Machine Tender Relationship Specialty Start Date End Date Melia Musa PA-C [address] [place] [address] PCP - General Internal Medicine 02/18/24 Dirk Hope MD [address] [place] [address] Physician Nephrology 02/18/24 Alejandra Coley MD [address] [place] [address] Referring Provider 02/18/24 Paul Kumar MD [address] [place] [address] Referring Provider Gastroenterology 02/18/24 Inocencio Patino Physician Endocrinology 02/03/24 Yolanda Tinsley Nurse Practitioner Breast Surgery-Scan 02/02/24 documented as of this encounter
--- OUTSIDE RECORDS SUMMARY | 2025-07-15 12:15 | XMS_ITS | Encounter Summary ---
Author Organization [facility] Address [address] [place] [address] Care Team Providers Care Yard Coordinator Name Role Phone Melia Musa PA-C Primary Care Provi nixon Dirk Hope MD Unavailable Alejandra Coley MD Unavailable Paul Kumar MD Unavailable Unavailable Encounter Details Date Type Department Care Team (Late st Contact Info) Description 03/25/2024 Scanned Document [address] [address] Primary Care, Scan Social History [...] Description 10/31/2025 9:30 AM EST Office Visit [address] [place] [phone] Melia Musa PA-C [address] [place] [address] 11/10/2025 1:00 PM EST Office Visit [facility] Weight Loss [place] [address] [place] [address] Samantha Lehman, HAND CLOTH FOLDER [address] [facility] [address] [place] [address] documented as of this encounter Visit Diagnoses Not on filedocumented in this encounter Care Teams Yard Coordinator Relationship Specialty Start Date End Date Melia Musa PA-C [address] [place] [address] PCP - General Internal Medicine 02/18/24 Dirk Hope MD [address] [place] [address] Physician Nephrology 02/18/24 Alejandra Coley MD [address] [place] [address] Referring Provider 02/18/24 Paul Kumar MD [address] [place] [address] Referring Provider Gastroenterology 02/18/24 Inocencio Patino Physician Endocrinology 02/03/24 Yolanda Tinsley Nurse Practitioner Breast Surgery-Scan 02/02/24 documented as of this encounter
--- OUTSIDE RECORDS SUMMARY | 2025-07-15 12:15 | XMS_ITS | Encounter Summary ---
Author Organization [facility] Address [address] [place] [address] Care Team Providers Care Outside Upholsterer Name Role Phone Melia Musa PA-C Primary Care Provi nixon Dirk Hope MD Unavailable Alejandra Coley MD Unavailable Paul Kumar MD Unavailable Unavailable Encounter Details Date Type Department Care Team (Late st Contact Info) Description 01/17/2025 Scanned Document [facility] NEPHROLOGY SCAN Nephrology, Scan Social History Tobacco Use Types Packs/Day Years Used Date Smoking Tobacco: Former Cigarettes Smokeless Tobacco: Never Alcohol Use Standard Drinks/Week Comments Yes 0 (1 standard drink = 0.6 oz pur e alcohol) when I go out to dinner [facility] Utilities Answer Date Recorded In the past 12 months has [employer] electric, gas, oil, or water company threatened [...] and Family Not on file 09/05/2024 Attends Judaism Services Not on file 09/05 Active Member [...] Date Recorded PHQ-2 Total Score 0 09/05/2024 [facility] - Occupational [...] time in the past 12 m [facility], were you homeless or living in a snf (including now)? No 09/05/2024 Physical Activity Answer [...] 9:30 AM EST Office Visit [facility] [address] [place] [address] Melia Musa PA-C [address] [place] [address] 11/10/2025 1:00 PM EST Office Visit [facility] [place] [address] [place] [phone] Samantha Lehman L, SHELF DRIER OPERATOR [facility] [address] [place] [address] documented as of this encounter Visit Diagnoses Not on filedocumented in this encounter Care Teams Outside Upholsterer Relationship Specialty Start Date End Date Melia Musa PA-C [address] [place] [address] PCP - General Internal Medicine 02/18/24 Dirk Hope MD [address] [place] [address] Physician Nephrology 02/18/24 Alejandra Coley MD [address] [place] [address] Referring Provider 02/18/24 Paul Kumar MD [address] [place] [address] Referring Provider Gastroenterology 02/18/24 Inocencio Patino Physician Endocrinology 02/03/24 Yolanda Tinsley Nurse Practitioner Breast Surgery-Scan 02/02/24 documented as of this encounter
--- OUTSIDE RECORDS SUMMARY | 2025-07-15 12:15 | XMS_ITS ---
Author Name [facility] Organization Unknown History of Medication Use Medication Directions Dispensed Refills Start Date End Date Stat us tirzepatide (ZEPBOUND) 7.5 mg/0.5 mL pen-injector Inject 1 Pen (7.5 mg total) under the skin once a week. 05/30/2025 active Zepbound 5 MG/0.5ML pen-injector INJECT CONTENTS OF 1 PEN (0.5ML) UNDER THE SKIN ONCE WEEKLY 05/24/2025 active tirzepatide (ZEPBOUND) 5 mg/0.5 mL pen-injector Inject 1 Pen (5 mg total) under the skin once a week. 03/21/2025 05/24/2025 aborted QUEtiapine (SEROquel) 300 MG tablet Take 1 tablet (300 mg total) by mouth nightly. 02/10/2025 active tirzepatide (ZEPBOUND) 2.5 mg/0.5 mL pen-injector Inject 1 Pen (2.5 mg total) under the skin once a week. 02/10/2025 active valsartan (DIOVAN) 40 MG tablet Take 1 tablet (40 mg total) by mouth daily. 02/01/2025 active scopolamine (TRANSDERM-SCOP) patch Place 1 patch on the skin every third day (72 hrs). 12/21/2024 active aMILoride (MIDAMOR) 5 MG tablet TAKE ONE-HALF TABLET (2.5MG) BY MOUTH ONCE DAILY. 10/11/2024 active atorvastatin (LIPITOR) 80 MG tablet Take 1 tablet (80 mg total) by mouth daily. 07/15/2024 active atorvastatin (LIPITOR) 40 MG tablet Take 1 tablet (40 mg total) by mouth every evening. 12/21/2023 active Tiadylt ER 240 MG 24 hr capsule Take 1 capsule (240 mg total) by mouth daily. 12/18/2023 active lithium carbonate (LITHOBID) 300 MG 12 hr CR tablet Take 3 tablets (900 mg total) by mouth every 24 hours. 02/19/2024 aborted famotidine (PEPCID) 20 MG tablet Take 1 tablet (20 mg total) by mouth 2 times a day. active Linzess 290 MCG Cap capsule take 1 capsule by mouth once daily before breakfast active LORazepam (ATIVAN) 0.5 MG tablet Take 1 tablet (0.5 mg total) by mouth 3 times daily (every 8 hours) as needed. active multivitamin Tab tablet Take 1 tablet by mouth daily. active OXcarbazepine (TRILEPTAL) 150 MG tablet Take 2 tablets (300 mg total) by mouth 2 times a day. active Problems Problem Status Onset Date Problem Type Date of Resolution Source Stage 3a chronic kidney disease active 2021-01-22 ProblemAct [facility] Hypercalcemia active 2021-01-22 ProblemAct [facility] T Primary hyperparathyroidism active 2021-01-22 ProblemAct [facility] Gastroesophageal reflux disease without esophagitis active 2024-02-18 ProblemAct [facility] History of breast cancer active 2024-09-07 ProblemAct [facility] Acquired hypothyroidism active 2024-02-18 ProblemAct [facility] Primary osteoarthritis of both knees active 2024-02-18 ProblemAct [facility] Bipolar 1 disorder active 2024-02-18 ProblemAct [facility] Foot pain, bilateral active 2024-04-03 ProblemAct [facility] OAB (overactive bladder) active 2024-02-18 ProblemAct [facility] Obesity, Class I, BMI 30-34.9 active EncounterDiagnosisAct [facility] IFG (impaired fasting glucose) active 2024-02-18 ProblemAct [facility] Obstructive sleep apnea syndrome active 2022-03-28 ProblemAct [facility] Gallstones active 2024-02-18 ProblemAct [facility] Fatty liver active 2024-02-18 ProblemAct [facility] History of colon polyps active 2024-02-18 ProblemAct [facility] Severe obesity active 2023-04-[address] Other hyperlipidemia active 2024-02-18 ProblemAct [facility] Hypertension active 2021-01-22 ProblemAct [facility] History of tobacco use active 2024-02-18 ProblemAct [facility] Immunizations Vaccine Date Source Lot Number Status Pneumococcal Polysaccharide 23-Valent 09/07/2024 [facility] [id number] completed Covid-19 mRNA Bivalent Vacci ne - Moderna 10 mcg/0.2 mL 6mo-5yr 09/30/2023 [facility] completed Covid-19 mRNA Bivalent Vacci ne - Moderna 50 mcg/0.5mL 12+ 09/30/2023 [facility] completed Influenza, Quadrivalent (FLU ARIX, AFLURIA, FLULAVAL, FLUZONE) Preservative Free IM 08/27/2023 [facility] completed Covid-19 mRNA Bivalent Vacci ne - Moderna 50 mcg/0.5mL 12+ 09/24/2022 [facility] completed Zoster Vaccine Recombinant (Shingrix) 07/04/2022 [facility] completed Zoster Vaccine Recombinant (Shingrix) 04/02/2022 [facility] completed Pneumococcal Conjugate 13-Valent 11/29/2021 [facility] completed Covid-19 mRNA Bivalent Vacci ne - Moderna 50 mcg/0.5mL 12+ 08/30/2021 [facility] completed Covid-19 mRNA Bivalent Vacci ne - Moderna 50 mcg/0.5mL 12+ 01/05/2021 [facility] completed Covid-19 mRNA Bivalent Vacci ne - Moderna 50 mcg/0.5mL 12+ 11/29/2020 [facility] [id number] completed Tdap 08/21/2020 [facility] completed Zoster Vaccine Live/Attenuated (Zostavax) 07/10/2016 [facility] completed Encounters Encounter Type Encounter Reason Primary Diagnosis Location Date Ambulatory Obesity, class 1 Obesity, class 1 [facility] 06/09/2025 Ambulatory Essential (primary) hypertension Essential (primary) hypertension [facility] 03/30/2025 Ambulatory Obesity, class 2 Obesity, class 2 [facility] 01/17/2025 [facility]ulatory [facility] Ambulatory Encounter for immunization Encounter for immunization [facility] 09/07/2024 Ambulatory Gastro-esophageal reflux disease without esophagitis Gastro-esophageal reflux disease without esophagitis [facility] 05/05[facility]2024 Ambulatory Pain in right foot Pain in right foot [facility] 04/12/2024 Ambulatory Impaired fasting glucose Impaired fasting glucose [facility] 03/04/2024 Ambulatory Other forms of dyspnea Other forms of dyspnea [facility] 02/19/2024 Care Team Organization Name Specialty Phone Email Start Date End Da te [facility] NO PCP Primary Care 04/27/2024 04/27/2024 [facility] DARREL Primary Care 02/21/2024 [facility] DENNIS ROJO Primary Care 02/19/2024
--- OUTSIDE RECORDS SUMMARY | 2025-07-15 12:15 | XMS_ITS | Continuity of Care Document ---
Author Organization [facility] [address] [place] [address] Phone [phone] Care Team Providers Care Wire Basket Maker Name Role Phone Melia Musa Care Team Information Re ceiver [phone] Problems Active Problems Provider Date Primary hypothyroidism Inocencio Patino M.D. O nset: 08/29/2022 Primary hyperparathyroidism Marcie Dinero Onset: 08/29/2022 Osteopenia Inocencio Patino M.D. Onset: 0 02/10/2025 Social History Type Date Description Comments Sex Female Sex Unknown Lives With Spouse ETOH Use Drinks 2 Alcohol ic Beverages Per Week Tobacco Use Start: Unknown End: Unknown Patient is a former smoker smoked for 6 years total Allergies and adverse reactions Description No Known Drug Allergies Medications Active Medications SIG Qnty Indications Ordering Provider Date Atorvastatin [id number] Tablets Take 1 Tablet By Mouth Once Daily In The Evening. Inocencio Patino M.D. 08/11/2024 Levothyroxine [id number] Tablets Take 1 1/2 tablets on Friday, 2 tablets on Friday, 1 tablet the remaining days. Inocencio Patino M.D. 08/11/2024 Quetiapine [id number] Tablets Take One Tablet By Mouth Every Day AT Bedtime Inocencio Patino M.D. 08/11/2024 [id number] Tablets 1 by mouth every day Inocencio Patino M.D. 08/11/2024 [id number] Tablets ER 12HR 2 tabs by mouth every day Inocencio Patino M.D. 08/11/2024 Diltiazem HCL ER [id number] Caps ER 24HR 1 by mouth every day Inocencio Patino M.D. 10/08/2023 Vital Signs Date Vital Result Comment 02/10/2025 9:06am BP Systolic 138 mmHg BP Diastolic 80 mmHg Heart Rate 72 /min Height 64.5 inches 5'4.50 Weight 216.38 lb BMI (Body Mass Index) 36.6 kg/m2 Results Test Acquired Date Facility Test Result H/L Range Note Calcium 04/06/2025 [facility] Calcium 11.1 mg/dL High 8.7-10.3 1 Basic Metabolic Panel (8) 04/06/2025 [facility] Glucose 83 mg/dL 70-99 BUN 27 mg/dL 8-27 Creatinine 1.49 mg/dL High 0.57-1.0 0 eGFR 38 mL/min/1.7 3 Low >59 BUN/Creatinine Ratio 18 12-28 Sodium 143 mmol/L 134-144 Potassium 5.1 mmol/L 3.5-5.2 Chloride 107 mmol/L High 96-106 Carbon Dioxide, Total 23 mmol/L 20-29 Phosphorus 04/06/2025 [facility] Phosphorus 3.3 mg/dL 3.0-4.3 PTH, Intact 04/06/2025 [facility] PTH, Intact 105 pg/mL High 15-65 Albumin 04/06/2025 [facility] Albumin 4.3 g/dL 3.9-4.9 Vitamin D, 25-Hydroxy 04/06/2025 [facility] Vitamin D, 25-Hydroxy 42.2 ng/mL 30.0-100 .0 2 TSH+Free T4 11/12/2024 [facility] TSH 3.590 uIU/mL 0.450-4. 500 T4,Free(Direct) 0.90 ng/dL 0.82- 1.7 7 Creatinine 11/12/2024 [facility] Creatinine 1.39 mg/dL High 0.57-1.0 0 Magnesium 11/12/2024 [facility] Magnesium 2.3 mg/dL 1.6-2.3 Basic Metabolic Panel (8) 11/12/2024 [facility] Glucose 96 mg/dL 70-99 BUN 29 mg/dL High 8-27 eGFR 41 mL/min/1.7 3 Low >59 BUN/Creatinine Ratio 21 12-28 Sodium 143 mmol/L 134-144 Potassium 4.6 mmol/L 3.5-5.2 Chloride 107 mmol/L High 96-106 Carbon Dioxide, Total 22 mmol/L 20-29 Calcium 11/12/2024 [facility] Calcium 10.7 mg/dL High 8.7-10.3 3 Albumin 11/12/2024 [facility] Albumin 4.1 g/dL 3.9-4.9 Phosphorus 11/12/2024 [facility] Phosphorus 3.1 mg/dL 3.0-4.3 Basic Metabolic Panel 02/03/2024 [facility] Glucose 107 mg/dL High 70-99 BUN 29 mg/dL High 8-27 Creatinine 1.61 mg/dL High 0.57-1.0 0 eGFR 35 mL/min/1.7 3 Low >59 BUN/Creatinine Ratio 18 12-28 Sodium 144 mmol/L 134-144 Potassium 4.5 mmol/L 3.5-5.2 Chloride 107 mmol/L High 96-106 Carbon Dioxide, Total 22 mmol/L 20-29 Anion Gap 15.0 mmol/L 10.0-18. 0 Calcium 11.4 mg/dL High 8.7-10.3 Albumin 02/03/2024 [facility] Albumin 4.5 g/dL 3.9-4.9 PTH, Intact 02/03/2024 [facility] PTH, Intact 70 pg/mL High 15-65 Vitamin D, 25-Hydroxy 02/03/2024 [facility] Vitamin D, 25-Hydroxy 32.0 ng/mL 30.0-100 .0 4 Albumin 12/08/2023 [facility] Albumin 4.3 GM/DL (3.4-4.8 ) Basic Metabolic Panel 12/08/2023 [facility] Glucose 111 mg/dL High (70-99) BUN 24 mg/dL High (8-23) Creatinine 1.5 mg/dL High (0.5-1.0 ) Sodium 145 mmol/L (133-145 ) Potassium 4.9 mmol/L (3.6-5.2 ) Chloride 111 mmol/L High (98-107) Bicarbonate 26 mmol/L (22-29) Anion Gap 8 (4-17) Calcium 11.1 mg/dL High (8.6-10. 5) Estimated GFR Creatinine 37 ML/MIN/1.7 3M2 5 Comprehensive Metabolic Panl 09/30/2023 [facility] Glucose 114 mg/dL High (70-99) [...] (0-33) Estimated GFR Creatinine 39 ML/MIN/1.7 3M2 6 TSH With Reflex To FT4 06/12/2023 [facility] TSH With Reflex To FT4 1.15 uIU/mL (0.4-4.2 ) Basic Metabolic Panel 06/12/2023 [facility] Glucose 103 mg/dL High (70-99) BUN 24 mg/dL High (8-23) Creatinine 1.5 mg/dL High (0.5-1.0 ) Sodium 144 mmol/L (133-145 ) Potassium 4.9 mmol/L (3.6-5.2 ) Chloride 109 mmol/L High (98-107) Bicarbonate 26 mmol/L (22-29) Anion Gap 9 (4-17) Calcium 11.1 mg/dL High (8.6-10. 5) Estimated GFR Creatinine 37 ML/MIN/1.7 3M2 7 PTH, Intact 06/12/2023 [facility] PTH, Intact 138 pg/mL High (15-65) Phosphorus 06/12/2023 [facility] Phosphorus 2.7 mg/dL (2.5-4.5 ) Basic Metabolic Panel 04/01/2023 [facility] Glucose 110 mg/dL High (70-99) BUN 23 mg/dL (8-23) Creatinine 1.6 mg/dL High (0.5-1.0 ) Sodium 145 mmol/L (133-145 ) Potassium 4.5 mmol/L (3.6-5.2 ) Chloride 112 mmol/L High (98-107) Bicarbonate 25 mmol/L (22-29) Anion Gap 8 (4-17) Calcium 11.1 mg/dL High (8.6-10. 5) Estimated GFR Creatinine 37 ML/MIN/1.7 3M2 8 TSH 04/01/2023 [facility] TSH 4.66 uIU/mL High (0.4-4.2 ) Basic Metabolic Panel 09/13/2022 [facility] Glucose 106 mg/dL High (70-99) BUN 19 mg/dL (8-23) Creatinine 1.5 mg/dL High (0.5-1.0 ) Sodium 145 mmol/L (133-145 ) Potassium 5.2 mmol/L (3.6-5.2 ) Chloride 111 mmol/L High (98-107) Bicarbonate 26 mmol/L (22-29) Anion Gap 8 (4-17) Calcium 10.9 mg/dL High (8.6-10. 5) Estimated GFR Creatinine 38 ML/MIN/1.7 3M2 9 Phosphorus 09/13/2022 [facility] Phosphorus 2.7 mg/dL (2.5-4.5 ) Albumin 09/13/2022 [facility] Albumin 4.4 GM/DL (3.4-4.8 ) TSH 09/13/2022 [facility] TSH 4.37 uIU/mL High (0.4-4.2 ) Albumin 08/22/2022 [facility] Albumin 4.9 GM/DL High (3.4-4.8 ) Basic Metabolic Panel 08/22/2022 [facility] Glucose 109 mg/dL High (70-99) BUN 24 mg/dL High (8-23) Creatinine 1.4 mg/dL High (0.5-1.0 ) Sodium 141 mmol/L (133-145 ) Potassium 5.0 mmol/L (3.6-5.2 ) Chloride 107 mmol/L (98-107) Bicarbonate 25 mmol/L (22-29) Anion Gap 9 (4-17) Calcium 10.8 mg/dL High (8.6-10. 5) Estimated GFR Creatinine 43 ML/MIN/1.7 3M2 10 Phosphorus 08/22/2022 [facility] Phosphorus 2.9 mg/dL (2.5-4.5 ) TSH 08/22/2022 [facility] TSH 6.14 uIU/mL High (0.4-4.2 ) 25Oh Vitamin D 08/22/2022 [facility] 25Oh Vitamin D 42.2 NG/ML (20-50) PTH, Intact 08/22/2022 [facility] PTH, Intact 96 pg/mL High (15-65) 1 Verified by repeat analysis 2 Vitamin D deficiency has been defined by the [place] of Medicine and an Endocrine Society practice guideline as a level of serum 25-OH vitamin D less than 20 ng/mL (1,2). The Endocrine Society went on to further define vitamin D insufficiency as a level between 21 and 29 ng/mL (2). 1. IOM ([place] of Medicine). 2010. Dietary reference intakes for calcium and D. [place]: [employer]. 2. Santos Hassan, Rico ESPINOZA, et al. Evaluation, treatment, and prevention of vitamin D deficiency: an Endocrine Society clinical practice guideline. JCEM. 2010; 96(7):1911-30. 3 Verified by repeat analysis 4 Vitamin D deficiency has been defined by the [place] of Medicine and an Endocrine Society practice guideline as a level of serum 25-OH vitamin D less than 20 ng/mL (1,2). The Endocrine Society went on to further define vitamin D insufficiency as a level between 21 and 29 ng/mL (2). 1. IOM ([place] of [employer]). 2010. Dietary reference intakes for calcium and D. [place]: The [employer]. 2. Santos Hassan, Rico ESPINOZA, et al. Evaluation, treatment, and prevention of vitamin D deficiency: an Endocrine Society clinical practice guideline. JCEM. 2010; 96(7):1911-30. 5 Creatinine based est imated glomerular filtration (eGFR) in adults is calculated using the National Kidney Foundation recommended 2020 CKD-EPI equation. Estimates GFR from serum creatinine, age and sex. 6 Creatinine based est imated glomerular filtration (eGFR) in adults is calculated using the National Kidney Foundation recommended 2020 CKD-EPI equation. Estimates GFR from serum creatinine, [...] GFR from serum creatinine, age and sex. 9 Creatinine based est imated glomerular filtration (eGFR) in adults is calculated using the National Kidney Foundation recommended 202 CKD-EPI equation. Estimates GFR from serum creatinine, age and sex. 10 Creatinine based est imated glomerular filtration (eGFR) in adults is calculated using the National Kidney Foundation recommended 202 CKD-EPI equation. Estimates GFR from serum creatinine, age and sex. Procedures Date Code Description Status 02/26/2023 NSHOWOFF No Show Office Visit Complet ed Medical Devices Description No Information Available Encounters Type Date Location Provider Dx Diagnosis Office Visit 02/10/2025 9:00a Main Office Inocencio Patino M.D. E21.3 Hyperparathyroidism, unspecified M85.80 Oth disrd of bone de nsity and structure, unspecified site Assessments Date Code Description Provider 02/10/2025 E21.3 Hyperparathyroidism Inocencio Azul M.D. 02/10/2025 M85.80 Osteopenia Inocencio boyd M.D. Plan of Treatment Future Appointment(s):* 08/24/2025 10:45 am - Inocencio Patino M.D. at Main Office 02/10/2025 - Inocencio Patino M.D.* E21.3 Hyperparathyroidism * M85.80 Osteopenia Functional Status Description No Information Available Mental Status Description No Information Available Referrals Description No Information Available
--- OUTSIDE RECORDS SUMMARY | 2025-07-15 12:15 | XMS_ITS | Encounter Summary ---
Author Organization [facility] Address [address] [place] [address] Care Team Providers Care Social Services Manager Name Role Phone Melia Musa PA-C Primary Care Provi nixon Dirk Hope MD Unavailable lAejandra Coley MD Unavailable Paul Kumar MD Unavailable Unavailable Reason for Visit * Reason Comments Appointment Encounter Details Date Type Department Care Team (Late st Contact Info) Description 12/15/2024 Telephone [facility] [address] [place] [address] Melia Musa PA-C [address] [place] [address] Appointment Social History Tobacco Use Types Packs/Day Years Used Date Smoking Tobacco: Former Cigarettes Smokeless Tobacco: Never Alcohol Use Standard Drinks/Week Comments Yes 0 (1 standard drink = 0.6 oz pur e alcohol) when I go out to dinner [facility] Utilities Answer Date Recorded In the past 12 months has [employer] electric, gas, oil, or water company threatened [...] and Family Not on file 09/05/2024 Attends Evangelical Services Not on file 09/05 Active Member [...] in the past 12 m [facility], were you homeless or living in a half-way (including now)? No 09/05/2024 Education Answer Date [...] Call out to patient. Patient triaged to [facility]. Patient states that I don't think that I have an infection. 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 Patient states that she will continue to monitor her symptoms. documented in this encounter Plan of Treatment Upcoming Encounters Date Type Department Care Team (Late st Contact Info) Description 10/31/2025 9:30 AM EST Office Visit [facility] [address] [place] [address] Melia Musa PA-C [address] [place] [address] 11/10/2025 1:00 PM EST Office Visit [facility] Medical Weight [facility] [place] [address] [place] [address] Samantha Lehman, STRINGED INSTRUMENT REPAIRER [facility] [address] [place] [address] documented as of this encounter Visit Diagnoses Not on filedocumented in this encounter Care Teams Social Services Manager Relationship Specialty Start Date End Date Melia Musa PA-C [address] [place] [address] PCP - General Internal Medicine 02/18/24 Dirk Hope MD [address] [place] [address] Physician Nephrology 02/18/24 Alejandra Coley MD [facility] [place] [address] Referring Provider 02/18/24 Paul Kumar MD [address] [place] [address] Referring Provider Gastroenterology 02/18/24 Inocencio Patino Physician Endocrinology 02/03/24 Yolanda Tinsley Nurse Practitioner Breast Surgery-Scan 02/02/24 documented as of this encounter
--- OUTSIDE RECORDS SUMMARY | 2025-07-15 12:15 | XMS_ITS | Encounter Summary ---
Author Organization [facility] Address [address] [place] [address] Care Team Providers Care Heating Engineer Name Role Phone Melia Musa PA-C Primary Care Provi nixon Dirk Hope MD Unavailable Alejandra Coley MD Unavailable Paul Kumar MD Unavailable Unavailable Reason for Visit * Reason Comments Other Encounter Details Date Type Department Care Team (Late st Contact Info) Description 12/07/2024 Telephone [facility] [address] [place] [address] Samantha Lehman, QUITLINE COUNSELOR [address] [place] [phone] Other Social History Tobacco Use Types Packs/Day Years Used Date Smoking Tobacco: Former Cigarettes Smokeless Tobacco: Never Alcohol Use Standard Drinks/Week Comments Yes 0 (1 standard drink = 0.6 oz pur e alcohol) when I go out to dinner [facility] Utilities Answer Date Recorded In the past 12 months has [employer] electric, gas, oil, or water company [...] and Family Not on file 09/05/2024 Attends Scientologist Services Not on file 09/05 Active Member [...] Description 10/31/2025 9:30 AM EST Office Visit [facility] [address] [place] [address] Melia Musa PA-C [address] [place] [address] 11/10/2025 1:00 PM EST Office Visit [facility] Medical Weight [facility] [place] [address] [place] [phone] Samantha Lehman L, QUITLINE COUNSELOR [address] [place] [phone] documented as of this encounter Visit Diagnoses Not on filedocumented in this encounter Care Teams Heating Engineer Relationship Specialty Start Date End Date Melia Musa PA-C [address] [place] [address] PCP - General Internal Medicine 02/18/24 Dirk Hope MD [address] [facility] [address] Physician Nephrology 02/18/24 Alejandra Coley MD [address] [place] [address] Referring Provider 02/18/24 Paul Kumar MD [address] [place] [address] Referring Provider Gastroenterology 02/18/24 Inocencio Patino Physician Endocrinology 02/03/24 Yolanda Tinsley Nurse Practitioner Breast Surgery-Scan 02/02/24 documented as of this encounter
== END 2025-07-15 11:05 | disposition home or self-care (01) ==
LOC: HO.HKA 10:40
PROVIDERS: PCP Physician Assistant Medical; Visit Provider Internal Medicine Nephrology
DX: E21.1 Secondary hyperparathyroidism, not elsewhere classified (principal); T43.595A Adverse effect of other antipsychotics and neuroleptics, initial encounter; N18.31 Chronic kidney disease, stage 3a; E83.52 Hypercalcemia; I10 Essential (primary) hypertension
CPT/HCPCS: 99214

== ENCOUNTER → 2025-07-15 10:39 | Outpatient (BNVA) | payer MEDICARE, OTHER, SELFPAY | PROVIDERS: PCP Physician Assistant Medical; Visit Provider Internal Medicine Nephrology | DX: N18.31 Chronic kidney disease, stage 3a (principal); E21.1 Secondary hyperparathyroidism, not elsewhere classified; I10 Essential (primary) hypertension | CPT/HCPCS: 99212 ==